=== PATIENT | female | born 1985 | race Two or more races ===

== ENCOUNTER 2020-11-17 09:01 | Emergency (ER) | payer OTHER, SELFPAY ==
[2020-11-17 10:00] VITALS: BP 152/95; PULSE 89; RESP 18; TEMP 36.4; O2SAT 99; BMI 25.3
--- NOTE | 2020-11-17 10:06 | ED.ABDPAIN ---
HPI - Abdominal Pain General Chief Complaint: Abdominal Pain Stated Complaint: LUMP IN ABD PAINFUL Time Seen by Provider: 11/17/20 10:04 Source: patient Mode of arrival: ambulatory Limitations: no limitations History of Present Illness HPI narrative: 35 y/o female presents to the ER with a painful lump in the center of her upper abdomen that has been present for about one week. She noticed it after she was constipated and straining to have a bowel movement. She reports the area is tender. She has had no N/V/D. Her last BM was yesterday but was hard with some bloody streaks in it, she did not feel like it was a full bowel movement. She has been taking milk of magnesium for constipation with little improvement. MD elicited complaint: abdominal pain Pertinent past history: constipation Onset (ago): week(s) (1) Pain Consistency: intermittent Location: epigastric Severity: moderate Quality: aching Radiation: none Migration to: no migration Exacerbating factors: bowel movement Relieving factors: nothing Associated symptoms: denies other symptoms Related Data Previous Rx's Medication Instructions Recorded polyethylene glycol 3350 17 17 g PO DAILY #119 g 11/17/20 gram/dose oral powder (Miralax) sennosides 8.6 mg-docusate sodium 1 tab-cap PO BID #30 cap 11/17/20 50 mg capsule (Senna Plus) Allergies Allergy/AdvReac Type Severity Reaction Status Date / Time latex [LATEX] Allergy Mild UNKNOWN Verified 11/17/20 10:02 Review of Systems Review of Systems Constitutional: No Fever, No Chills ENT/Mouth: No Swallowing Difficulty Cardiovascular: No Chest Pain, No SOB Respiratory: No Cough, No Sputum Gastrointestinal: No Nausea, No Vomiting, No Diarrhea, + abdominal Pain, No Hematochezia, No Melena, +constipation Genitourinary: No Dysuria, No Urinary Frequency, No Hematuria Musculoskeletal: No joint pain, No Myalgias Skin: No Skin Lesions, No rash Psych: +Anxiety/Panic Heme/Lymph: No Lymphadenopathy Physical Exam Vital Signs: Vital Signs: Last Vital Signs Temp 97.6 F 11/17/20 10:00 Pulse 89 11/17/20 10:00 Resp 18 11/17/20 10:00 BP 152/95 H 11/17/20 10:00 Pulse Ox 99 11/17/20 10:00 Body Mass Index 25.3 Appearance: Alert. Oriented X3. No acute distress. Eyes: Pupils equal, round and reactive to light. ENT: Pharynx normal. Neck: Normal inspection. Neck supple. CVS: Normal heart rate and rhythm. Pulses normal. Respiratory: No respiratory distress. Breath sounds normal. Abdomen: Well healed landry on her abdominal wall, upper abdomen with small 2cm mass tender and mobile, with knees flexed mass was able to be reduced. mild residual tenderness +BS x4 FAIZAN: normal external inspection, no stool ball in rectal vault, scant brown stool on glove Skin: Skin warm and dry. Normal skin color. Normal skin turgor. No rashes. Extremities: No lower extremity edema. Neuro: Oriented X 3. No motor deficit. No sensory deficit. Course Course Course Narrative: 35 yo female presenting with a painful mass/lump in her upper central abdomen, consistent with small hernia. Mass was able to be reduced at the bedside with Dr. Dunn. Patient tolerated well. No N/V/D. We discussed the importance of treating her constipation and following up with a surgeon. Stable for d/c home with outpatient follow up and a bowel regimen. Discharge Plan Discharge Clinical Impression: Constipation Qualifiers: Constipation type: drug induced constipation Qualified Code(s): K59.03 - Drug induced constipation Ventral hernia Qualifiers: Obstruction and gangrene presence: without obstruction or gangrene Qualified Code(s): K43.9 - Ventral hernia without obstruction or gangrene Patient Disposition: Home, Self-Care Instructions: Constipation (ED), Ventral Hernia (ED) Additional Instructions: It is important to treat the constipation to help prevent straining when you have a bowel movement. Take the prescribed medications to help with this. Drink plenty of water and increase your fiber intake (over the counter Metamucil) Follow up with the Surgeon for further evaluation. Prescriptions: New polyethylene glycol 3350 [Miralax] 17 gram/dose powder 17 g PO DAILY Qty: 119 RF: 0 Senna Plus 8.6-50 mg capsule 1 tab-cap PO BID Qty: 30 RF: 0 Referrals: Fabrizio Hightower MD [Physician] - 1 week (reducible ventral hernia) [facility] Past Medical History Medical History (Updated 11/17/20 @ 10:24 by LOGAN Aden) No known health problems Social History Social History Advance Directives: No Advance Directives Information Provided: No Patient : No
== END 2020-11-17 10:35 | disposition home or self-care (01) ==
PROVIDERS: Emergency Provider Internal Medicine; PCP Internal Medicine
DX: K59.03 Drug induced constipation (principal); K43.9 Ventral hernia without obstruction or gangrene; R10.13 Epigastric pain; Z79.899 Other long term (current) drug therapy
CPT/HCPCS: 99283

== ENCOUNTER → 2020-12-04 14:04 | Outpatient (BNVA) | payer OTHER, SELFPAY | PROVIDERS: PCP Internal Medicine; Referring Provider Internal Medicine; Visit Provider Surgery | DX: K43.9 Ventral hernia without obstruction or gangrene (principal) | CPT/HCPCS: 99202 ==

== ENCOUNTER 2020-12-27 06:42 | Day surgery (SDC) | payer OTHER, SELFPAY ==
[2020-12-20 10:17] VITALS: BMI 26.8
[2020-12-27] VITALS (8 sets, daily range): BP systolic 108–135; BP diastolic 63–88; PULSE 60–91; RESP 16–20; TEMP 36.6–36.8; O2SAT 97–100
--- NOTE | 2020-12-27 07:33 | P.CONAN_ITS ---
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 If so, by whom?: No Are you DNR?: No Advance Directives: No Advance Directives Information Provided: Yes (informational brochure mailed) Advance Directives on File: No Recently lost weight without trying: No Eating poorly because of decreased appetite: No Nutrition Risks: No Nutritional Risk Patient : No FDLMP: 12/11/20 : No Poor oral hygiene: No Meds Allergies Allergy/AdvReac Type Severity Reaction Status Date / Time latex [LATEX] Allergy Mild Hives Verified 12/27/20 07:06 Active Medications: Current Medications Lactated Ringer's (Lr) 1,000 mls @ 50 mls/hr IVCONT .Q20H ERIC Promethazine HCl 12.5 mg/ (Sodium Chloride) 50.5 mls @ 202 mls/hr IV ONCE PRN PRN Reason: Nausea and Vomiting Oxycodone HCl (Oxycodone Hcl Immed Release 5 Mg Tablet) 5 mg PO ONCE PRN PRN Reason: Pain, Severe (Pain Scale 7-10) Home Medications Medication Instructions Recorded Confirmed Last Taken Type hydroxyzine HCl 50 mg tablet 50 mg PO TID 12/20/20 12/20/20 Unknown History mirtazapine 30 mg tablet 30 mg PO BEDTIME 12/20/20 12/20/20 Unknown History paroxetine HCl 20 mg tablet 20 mg PO DAILY 12/20/20 12/20/20 Unknown History prazosin 2 mg capsule 2 mg PO BEDTIME 12/20/20 12/20/20 Unknown History pyridoxine (vitamin B6) 100 mg 100 mg PO DAILY 12/20/20 12/20/20 Unknown History tablet (Vitamin B-6) ziprasidone HCl 60 mg capsule 60 mg PO BID 12/20/20 12/20/20 Unknown History Exam Exam Date and Time: December 27, 2020732 Height,Weight and Vital Signs: Height 5 ft 1 in Weight 64.41 kg Last Vital Signs Temp 98.2 F 12/27/20 07:24 Pulse 71 12/27/20 07:24 Resp 20 12/27/20 07:24 BP 131/88 12/27/20 07:24 Pulse Ox 99 12/27/20 07:24 Airway Mallampati Class: II TM Dist: >3cm Neck ROM: Full Heart: rrr Lungs: cta Assessment and Plan Assessment Anesthesia Assessment: Anesthesia Plan Discussed and Chart Reviewed Final Anesthetic Review Family History of Problems with Anesthesia: No History of Problems with Anesthesia: No NPO: Yes ASA Class: II Final Preanesthetic Review: No Changes in Pt Med Stat, Meds/Allgs Chart Reviewed and Consent Obtained/Reviewed Patient Risk: Intermediate Procedure Risk: Intermediate Anesthetic Plan Anesthetic Plan: GA Disposition: Standard PACU
[2020-12-27] MEDS: Lactated Ringers 1,000 ML 50 ML IVCONT (07:40)
--- NOTE | 2020-12-27 08:05 | MHC.SHP ---
Pre-Procedural Eval Section A Date of Service: 12/27/20 Section B Chief Complaint: Epigastric Hernia Allergies: Allergies Allergy/AdvReac Type Severity Reaction Status Date / Time latex [LATEX] Allergy Mild Hives Verified 12/27/20 07:06 Plan I have reviewed the history and physical and performed a pertinent physical examination on my patient. No changes have occurred unless specified.
--- NOTE | 2020-12-27 09:03 | P.OP_ITS ---
Operative Note Operative Note Date of Service: 12/27/20 Narrative: Preop diagnosis: Epigastric hernia Postop diagnosis: Epigastric hernia Procedure: Repair of epigastric hernia with Ventralex mesh Surgeon: Fabrizio Hightower MD assistant professor of chemistry: LOGAN Sherman the patient is a 35-year-old female with note of a reducible mass on the epigastric area consistent with an epigastric hernia. She understood the technique of repair with mesh. She was aware of the risks, benefits, and alternatives She was brought to the operating room placed supine the table under general anesthesia via endotracheal tube. The epigastric area prepped and draped in the usual sterile fashion. A surgical time-out was done. The patient received cefazolin 2 g IV preoperatively . The hernia was palpable in the epigastric area. I infiltrated the planned line of incision with lidocaine 1%. I made a short nodule incision overlying this hernia using blade 15. This carried down through the full-thickness of the skin subcutaneous fat using electrocautery down to the fascia. I bluntly dissected the fascia until was able to visualize the hernia. I defined the hernia by carefully this from the rest of the subcutaneous layer until as were able to clearly see the fascial defect. This hernia contained only fat. I continued to sharply dissect the fascial margins to separate the hernia contents off of this. By doing so was able to reduce the hernia completely. The fascial defect was about 1.3 cm in diameter. I was able to clearly see the underside of defect. I applied a Deandre clamp on 1 of the edges. I then used a small-sized Ventralex mesh and this was position under the fascia. This was flattened. I then secured the Prolene straps of the mesh to the fascial edge with Prolene 2-0 sutures. I closed the fascial defect with the [id number] Maxon 1 stitch. I irrigated. I closed the subcutaneous layer with Dexon 3-0 interrupted sutures. Skin closure was achieved with Dexon 4-0 subcuticular running stitch. Steri-Strips and dressings were applied. The area of the incision was infiltrated with Marcaine 0.5% for postop analgesia. The procedure was completed . The patient tolerated well. There were no complications noted. Initial and final counts of sponges and instruments were correct. Estimated blood loss was about 2 cc . The patient extubated without difficulty and transferred to the recovery room with stable vital signs.
[2020-12-27] MEDS: oxyCODONE HCl Immed Release 5 MG TABLET PO (09:45)
== END 2020-12-27 10:57 | disposition home or self-care (01) ==
PROVIDERS: PCP Internal Medicine; Visit Provider Surgery
PROC: (CPT 49570; principal; 2020-12-27 08:20)
DX: K43.9 Ventral hernia without obstruction or gangrene (principal); F32.9 Major depressive disorder, single episode, unspecified; Z79.899 Other long term (current) drug therapy; Z91.040 Latex allergy status; F17.210 Nicotine dependence, cigarettes, uncomplicated
CPT/HCPCS: 49570; C1781; J0131; J0690; J1100; J1170; J1200; J1885; J2250; J2405; J2550; J3010

== ENCOUNTER → 2021-01-20 15:56 | Outpatient (BNVA) | payer OTHER, SELFPAY | PROVIDERS: PCP Internal Medicine; Referring Provider Internal Medicine; Visit Provider Surgery | DX: Z48.815 Encounter for surgical aftercare following surgery on the digestive system (principal); Z87.19 Personal history of other diseases of the digestive system | CPT/HCPCS: 99212 ==

== ENCOUNTER 2022-04-18 15:10 | Emergency (ER) | payer OTHER, MEDICARE, MEDICAID, SELFPAY ==
[2022-04-18 15:12] VITALS: BP 126/75; PULSE 90; RESP 20; TEMP 36.7; O2SAT 96; BMI 28.0
--- NOTE | 2022-04-18 15:16 | ED_ITS ---
HPI - Wound/Laceration General Chief Complaint: Wound/Laceration <Nguyen Lockett CNP - Last Filed: 04/18/22 15:17> Stated Complaint: laceration left finger <Nguyen Lockett CNP - Last Filed: 04/18/22 15:17> Time Seen by Provider: 04/18/22 15:49 <Nguyen Lockett CNP - Last Filed: 04/18/22 15:17> History of Present Illness HPI narrative: Patient complains of left index finger laceration sustained at home when she accidentally cut herself with a knife a an hour ago, no numbness weakness or tingling no other complaints <LOGAN Vegas - Last Filed: 04/18/22 21:40> Related Data Home Medications: Home Medications Medication Instructions Recorded Confirmed hydroxyzine HCl 50 mg tablet 50 mg PO TID 12/20/20 12/20/20 mirtazapine 30 mg tablet 30 mg PO BEDTIME 12/20/20 12/20/20 paroxetine HCl 20 mg tablet 20 mg PO DAILY 12/20/20 12/20/20 prazosin 2 mg capsule 2 mg PO BEDTIME 12/20/20 12/20/20 pyridoxine (vitamin B6) 100 mg 100 mg PO DAILY 12/20/20 12/20/20 tablet (Vitamin B-6) ziprasidone HCl 60 mg capsule 60 mg PO BID 12/20/20 12/20/20 Previous Rx's Medication Instructions Recorded polyethylene glycol 3350 17 17 g PO DAILY #119 grams 11/17/20 gram/dose oral powder (Miralax) sennosides 8.6 mg-docusate sodium 1 tab-cap PO BID #30 caps 11/17/20 50 mg capsule (Senna Plus) ibuprofen 600 mg tablet 600 mg PO Q6H PRN pain #30 tabs 12/27/20 oxycodone-acetaminophen 5 mg-325 1 tab PO Q4-6H PRN pain, severe 12/27/20 mg tablet (Percocet) #30 tabs ondansetron HCl 4 mg tablet 4 mg PO Q8H PRN nausea and 01/13/21 vomiting #20 tabs <Nguyen Lockett CNP - Last Filed: 04/18/22 15:17> Allergies/Adverse Reactions: Allergies Allergy/AdvReac Type Severity Reaction Status Date / Time latex [LATEX] Allergy Mild Hives Verified 01/20/21 16:05 <Nguyen Lockett CNP - Last Filed: 04/18/22 15:17> [facility] Past Medical History Source: nursing notes reviewed <LOGAN Vegas - Last Filed: 04/18/22 21:40> Medical History: Medical History Bipolar disorder Depression Epigastric hernia Hx of ectopic <Nguyen Lockett CNP - Last Filed: 04/18/22 15:17> Surgical History: Surgical History History of History of loop electrical excision procedure (LEEP) Hx of laparoscopy Hx of tubal ligation <Nguyen Lockett CNP - Last Filed: 04/18/22 15:17> Social History Social History: Social History Are you a primary field care coordinator to a significant other at home: Yes (children-one is still a minor-18 year old will care for child day of surg.) Do you presently have visiting nurse or other home services: No Patient Tobacco Use Status: Current everyday Tobacco user Tobacco use type: Cigarette Cigarettes Per Day: 5 Years Smoked: 12 Advance Directives: No Advance Directives Information Provided: No <Nguyen Lockett CNP - Last Filed: 04/18/22 15:17> Physical Exam Vital Signs: Vital Signs: Last Vital Signs Temp 98.1 F 04/18/22 15:12 Pulse 90 04/18/22 15:12 Resp 20 04/18/22 15:12 BP 126/75 04/18/22 15:12 Pulse Ox 96 04/18/22 15:12 O2 Del Method 04/18/22 15:12 BMI result Body Mass Index 28.0 <Nguyen Lockett CNP - Last Filed: 04/18/22 15:17> Vital Signs: Last Vital Signs Temp 98.1 F 04/18/22 15:12 Pulse 90 04/18/22 15:12 Resp 20 04/18/22 15:12 BP 126/75 04/18/22 15:12 Pulse Ox 96 04/18/22 15:12 O2 Del Method 04/18/22 15:12 BMI result Body Mass Index 28.0 <LOGAN Vegas - Last Filed: 04/18/22 21:40> General appearance no acute distress Head normocephalic atraumatic Neck is supple Respiratory no distress Extremities the left index finger middle phalanx palmar surface has a 1.75 cm straight superficial laceration, all tendon function is normal, flexion is normal no evidence of tendon deficit, neurovascular intact distal, full range of motion Other extremities normal <LOGAN Vegas - Last Filed: 04/18/22 21:40> Course Course Course Narrative: This is an RME: Additional HPI, ROS, PE not included below will be deferred to primary provider. Patient is a 36-year-old female who presents emergency department for evaluation of a laceration to the left 2nd digit. Lace ration occurred from a knife while cooking dinner. Uncertain of date of last tetanus vaccine. Bleeding currently controlled. Denies AC usage. Plan: Tdap to be updated. placed back in waiting room pending bed availability <Nguyen Lockett CNP - Last Filed: 04/18/22 15:17> This is an RME: Additional HPI, ROS, PE not included below will be deferred to primary provider. Patient is a 36-year-old female who presents emergency department for evaluation of a laceration to the left 2nd digit. Laceration occurred from a knife while cooking dinner. Uncertain of date of last tetanus vaccine. Bleeding currently controlled. Denies AC usage. Plan: Tdap to be updated. placed back in waiting room pending bed availability 1 cm left mid phalanx palmar surface laceration with no tendon deficit Procedure note cleansed and irrigated with water The wound was closed with Steri-Strips Band-Aid applied <LOGAN Vegas - Last Filed: 04/18/22 21:40> Medications Administered Discontinued Medications Generic Name Dose Route Start Last Admin Trade Name Freq PRN Reason Stop Dose Admin Diphtheria/Tetanus/Acell Pertussis 0.5 ml 04/18/22 15:17 04/18/22 16:44 Diphth,Pertus(Acell),Tet Adult 0.5 Ml Syringe IM 04/18/22 15:18 0.5 ml .ONCE ONE Administration <Nguyen Lockett CNP - Last Filed: 04/18/22 15:17> Medications Administered Discontinued Medications Generic Name Dose Route Start Last Admin Trade Name Freq PRN Reason Stop Dose Admin Diphtheria/Tetanus/Acell Pertussis 0.5 ml 04/18/22 15:17 04/18/22 16:44 Diphth,Pertus(Acell),Tet Adult 0.5 Ml Syringe IM 04/18/22 15:18 0.5 ml .ONCE ONE Administration <LOGAN Vegas - Last Filed: 04/18/22 21:40> Discharge Plan Discharge Clinical Impression: Finger laceration <Nguyen Lockett CNP - Last Filed: 04/18/22 15:17> Patient Disposition: Home, Self-Care <Nguyen Lockett CNP - Last Filed: 04/18/22 15:17> Additional Instructions: The laceration to the finger was closed with Steri-Strips You can remove tape in 4-5 days, if ends come loose you can trim them, if tape falls off sooner just keep wound covered with a Band-Aid and will be fine Return any time for redness swelling pain any sign of infection You got a tetanus shot today <Nguyen Lockett CNP - Last Filed: 04/18/22 15:17> Prescriptions: No Action ondansetron HCl 4 mg tablet 4 mg PO Q8H PRN (Reason: nausea and vomiting) Qty: 20 0RF polyethylene glycol 3350 [Miralax] 17 gram/dose powder 17 g PO DAILY Qty: 119 0RF Senna Plus 8.6-50 mg capsule 1 tab-cap PO BID Qty: 30 0RF hydroxyzine HCl 50 mg Tablet 50 mg PO TID paroxetine HCl 20 mg Tablet 20 mg PO DAILY mirtazapine 30 mg Tablet 30 mg PO BEDTIME pyridoxine (vitamin B6) [Vitamin B-6] 100 mg Tablet 100 mg PO DAILY ziprasidone HCl 60 mg Capsule 60 mg PO BID prazosin 2 mg Capsule 2 mg PO BEDTIME oxycodone-acetaminophen [Percocet] 5-325 mg tablet 1 tab PO Q4-6H PRN (Reason: pain, severe) Qty: 30 0RF ibuprofen 600 mg tablet 600 mg PO Q6H PRN (Reason: pain) Qty: 30 0RF <Nguyen Lockett CNP - Last Filed: 04/18/22 15:17> Stand Alone Forms: Work/School Release <Nguyen Lockett CNP - Last Filed: 04/18/22 15:17> Interventions: ED Discharge Assessment Last Done: 04/18/22 16:48 <Nguyen Lockett CNP - Last Filed: 04/18/22 15:17> Discharge Date/Time: 04/18/22 16:49 <Nguyen Lockett CNP - Last Filed: 04/18/22 15:17>
[2022-04-18] MEDS: Diphth,Pertus(ACell),Tet Adult 0.5 ML SYRINGE IM (16:44)
== END 2022-04-18 16:49 | disposition home or self-care (01) ==
PROVIDERS: Emergency Provider Emergency Medicine
DX: S61.211A Laceration without foreign body of left index finger without damage to nail, initial encounter (principal); W26.0XXA Contact with knife, initial encounter; Y93.G1 Activity, food preparation and clean up; Y92.030 Kitchen in apartment as the place of occurrence of the external cause; Y99.9 Unspecified external cause status
CPT/HCPCS: 90471; 90715; 99282; 99284

== ENCOUNTER 2022-04-20 08:40 | Emergency (ER) | payer OTHER, MEDICARE, MEDICAID, SELFPAY ==
[2022-04-20 09:04] VITALS: BP 119/72; PULSE 82; RESP 20; TEMP 37.2; O2SAT 99; BMI 27.6
--- NOTE | 2022-04-20 12:11 | ED.GENADULT ---
HPI - General Adult General Chief complaint: Skin/Abscess/Foreign Body Stated complaint: Lac on finger Time Seen by Provider: 04/20/22 11:30 Source: patient Mode of arrival: ambulatory Limitations: no limitations History of Present Illness HPI narrative: 36 yold female presents to the for opening of left index wound that was glued this past wednesday. Patient states today while lifting the box this morning the wound opended. patient denies any other truama or complaints. Related Data Home Medications Medication Instructions Recorded Confirmed hydroxyzine HCl 50 mg tablet 50 mg PO TID 12/20/20 12/20/20 mirtazapine 30 mg tablet 30 mg PO BEDTIME 12/20/20 12/20/20 paroxetine HCl 20 mg tablet 20 mg PO DAILY 12/20/20 12/20/20 prazosin 2 mg capsule 2 mg PO BEDTIME 12/20/20 12/20/20 pyridoxine (vitamin B6) 100 mg 100 mg PO DAILY 12/20/20 12/20/20 tablet (Vitamin B-6) ziprasidone HCl 60 mg capsule 60 mg PO BID 12/20/20 12/20/20 Previous Rx's Medication Instructions Recorded polyethylene glycol 3350 17 17 g PO DAILY #119 grams 11/17/20 gram/dose oral powder (Miralax) sennosides 8.6 mg-docusate sodium 1 tab-cap PO BID #30 caps 11/17/20 50 mg capsule (Senna Plus) ibuprofen 600 mg tablet 600 mg PO Q6H PRN pain #30 tabs 12/27/20 oxycodone-acetaminophen 5 mg-325 1 tab PO Q4-6H PRN pain, severe 12/27/20 mg tablet (Percocet) #30 tabs ondansetron HCl 4 mg tablet 4 mg PO Q8H PRN nausea and 01/13/21 vomiting #20 tabs bacitracin 500 unit/gram topical 1 appl topical TID 7 days #14 grams 04/20/22 ointment Allergies Allergy/AdvReac Type Severity Reaction Status Date / Time latex [LATEX] Allergy Mild Hives Verified 01/20/21 16:05 Review of Systems Review of Systems: left index finger dehischence Yes all other systems are reviewed and are negative PMFSH Past Medical History Medical History Bipolar disorder Depression Epigastric hernia Hx of ectopic Surgical History History of History of loop electrical excision procedure (LEEP) Hx of laparoscopy Hx of tubal ligation Social History Social History 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 at home: Yes (children-one is still a minor-18 year old will care for child day of surg.) Do you presently have visiting nurse or other home services: No Patient Tobacco Use Status: Current everyday Tobacco user Tobacco use type: Cigarette Cigarettes Per Day: 5 Years Smoked: 12 Advance Directives: No Advance Directives Information Provided: No Physical Exam ED Vital Signs: Vital Signs - 24 hr 04/20/22 09:04 Temperature 98.9 F Pulse Rate 82 Respiratory Rate 20 Blood Pressure 119/72 Pulse Oximetry 99 Oxygen Delivery Method Room Air BMI result Body Mass Index 27.6 Const General: cooperative, healthy appearing, comfortable, no acute distress, well developed, alert, awake and Physically active Orientation/consciousness: oriented to person, oriented to place, oriented to time and patient oriented x3 HENMT Head: Yes normal to inspection, Yes No palpable skull fracture present, Yes normocephalic and No atraumatic Eyes General: appearance normal, both eyes and all related structures Neck Neck: Yes normal visual inspection, Yes full ROM, Yes no lymphadenopathy, Yes no meningeal signs, Yes trachea midline, Yes supple, No anterior neck swelling and No tender Chest Chest palpation & inspection: normal inspection of the chest and normal palpation of entire chest wall Resp Effort & Inspection: normal respiratory effort and able to speak in complete sentences Auscultation: clear to auscultation bilaterally Cardio Jugular venous distension: no JVD Heart sounds: S1 normal heart sound present and S2 normal heart sound present GI Inspection: Yes normal to inspection and No abdominal wall ecchymosis Palpation (GI): Soft to palpation, not firm, nontender, no guarding and not rigid General: No CVA tenderness and Yes no CVA tenderness Back/Spine/Pelvis Back: no CVA tenderness, No CVA tenderness and No back tenderness Skin General skin exam: no rashes or lesions noted and elasticity normal Neuro General: oriented to person, oriented to place, oriented to time, patient oriented x3, gait normal, moves all extremities, Normal light touch and pain sensation, no meningeal signs, no focal motor deficits and CN's II-XI intact bilaterally Extrem General: Yes normal to inspection and Yes full ROM Hand/finger images: 1. Open laceration. Healthy looking. Negative for any swelling, redness, pus discharge, or foul odor. Patient has complete range of motion of index finger. Psych Appearance: grossly normal, well kempt and not disheveled Course Course Course Narrative: Course. wound is health looking Reevaluation(s) Reevaluation #1: No need for any further laceration repair. Cleaned with sterile saline and biodine. bacitracin placed Medications Administered Discontinued Medications Generic Name Dose Route Start Last Admin Trade Name Freq PRN Reason Stop Dose Admin Bacitracin 1 appl 04/20/22 12:13 04/20/22 12:37 Bacitracin Oint 0.9 Gm Packet TOPICAL 04/20/22 12:14 1 appl ONCE ONE Administration Protocol Medical Decision Making Medical Decision Making MDM Narrative: 36-year-old female presents to ED for open left index finger wound was glued this past Wednesday. No new trauma. Wound is healthy appearing Differential Diagnosis Differential Diagnoses: The differential diagnosis associated with the presentation includes (Wound dehiscence, cellulitis,) Prescription Management I considered prescription management with: Other (bacitracin) Discharge Plan Discharge Clinical Impression: Wound dehiscence Patient Disposition: Home, Self-Care Instructions: Wound Healing and Your Diet (ED), Wound Dehiscence (ED) Additional Instructions: No need for repeat laceration repair. Finger will heal on its own. Recommend placing bacitracin twice a day with finger. Keep finger covered when working. Return to the ED for any swelling, redness, pus discharge, foul odor, fever, chills, or any other concerning symptoms. Please follow up with PCP. Prescriptions: New bacitracin 500 unit/gram ointment 1 appl topical TID 7 Days Qty: 14 0RF No Action ondansetron HCl 4 mg tablet 4 mg PO Q8H PRN (Reason: nausea and vomiting) Qty: 20 0RF polyethylene glycol 3350 [Miralax] 17 gram/dose powder 17 g PO DAILY Qty: 119 0RF Senna Plus 8.6-50 mg capsule 1 tab-cap PO BID Qty: 30 0RF hydroxyzine HCl 50 mg Tablet 50 mg PO TID paroxetine HCl 20 mg Tablet 20 mg PO DAILY mirtazapine 30 mg Tablet 30 mg PO BEDTIME pyridoxine (vitamin B6) [Vitamin B-6] 100 mg Tablet 100 mg PO DAILY ziprasidone HCl 60 mg Capsule 60 mg PO BID prazosin 2 mg Capsule 2 mg PO BEDTIME oxycodone-acetaminophen [Percocet] 5-325 mg tablet 1 tab PO Q4-6H PRN (Reason: pain, severe) Qty: 30 0RF ibuprofen 600 mg tablet 600 mg PO Q6H PRN (Reason: pain) Qty: 30 0RF Stand Alone Forms: Work/School Release Interventions: ED Discharge Assessment Last Done: 04/20/22 12:34 Discharge Date/Time: 04/20/22 12:36 Print Language: Swedish
[2022-04-20] MEDS: Bacitracin Oint 0.9 GM PACKET 1 APPL TOPICAL (12:37)
== END 2022-04-20 12:36 | disposition home or self-care (01) ==
PROVIDERS: Emergency Provider Emergency Medicine
DX: T81.33XD Disruption of traumatic injury wound repair, subsequent encounter (principal); Y82.8 Other medical devices associated with adverse incidents
CPT/HCPCS: 99282; 99283

== ENCOUNTER 2024-04-08 11:05 | Inpatient (IN) | payer MEDICARE, MEDICAID, SELFPAY ==
--- NOTE | ~2024-04-08 | CT_ITS ---
CLINICAL HISTORY: RLQ pain, V D, r o appendicitis v colitis CT abdomen and pelvis with contrast Comparison: CT - CT ABDOMEN PELVIS W IV CON - 04/08/24 14:39 EST Findings: Trace right pleural effusion. Heart size is normal. The gallbladder and solid organs are within normal limits. No renal stones. No bowel obstruction, pneumoperitoneum, or pneumatosis. There is mild thickening of the descending colon. Pelvic contents unremarkable. Normal appendix. No acute fracture. IMPRESSION: 1. Colonic thickening, consistent with ischemia, infection, versus inflammation. Follow-up colonoscopy is recommended to exclude underlying neoplasm. 2. Trace right pleural effusion. This document has been electronically signed by: Eileen Ni MD on 04/08/2024 15:52:50
--- NOTE | 2024-04-08 11:18 | ED.GENADULT ---
HPI - General Adult General Chief complaint: Abdominal Pain Stated complaint: vomitting diarrhea abd pain Time Seen by Provider: 04/08/24 14:23 Source: patient Mode of arrival: ambulatory Limitations: no limitations History of Present Illness ED Provider: MARISA DIAZ PA-C HPI narrative: 38 year old female with no significant pmhx presents to the ED today for evaluation of nausea, vomiting, diarrhea, and lower abdominal pain x1.5 weeks. Denies any recent antibiotic treatment. Denies recent travel outside the [place]. Her daughter was recently ill with similar symptoms. She was evaluated at today and was sent to the ED for further evaluation due to concern for appendicitis. She denies fever, chills, chest pain, flank pain, dysuria, hematuria, constipation, vaginal discharge. Related Data Home Medications ?Medication ?Instructions ?Recorded ?Confirmed aripiprazole 5 mg tablet 5 mg PO DAILY 04/08/24 04/08/24 clonidine HCl 0.1 mg tablet 0.1 mg PO BEDTIME PRN Anxiety 04/08/24 04/08/24 escitalopram oxalate 10 mg tablet 10 mg PO DAILY 04/08/24 04/08/24 escitalopram oxalate 20 mg tablet 20 mg PO DAILY@1500 04/08/24 04/08/24 gabapentin 400 mg capsule 800 mg PO TID 04/08/24 04/08/24 lamotrigine 25 mg tablet 50 mg PO TID 04/08/24 04/08/24 lorazepam 0.5 mg tablet 0.5 mg PO BID PRN Anxiety 04/08/24 04/08/24 prazosin 5 mg capsule 5 mg PO BEDTIME 04/08/24 04/08/24 quetiapine 200 mg tablet,extended 500 mg PO BEDTIME 04/08/24 04/08/24 release 24 hr quetiapine 50 mg tablet,extended 50 mg PO DAILY 04/08/24 04/08/24 release 24 hr Allergies Allergy/AdvReac Type Severity Reaction Status Date / Time latex [LATEX] Allergy Mild Hives Verified 04/08/24 11:19 Review of Systems Review of Systems: Constitutional: No fever, chills, fatigue, night sweats, weight changes ENT/Mouth: No ear pain, hearing loss, nasal congestion, sinus pain, rhinorrhea, sore throat Eyes: No eye pain, swelling, redness, vision changes, discharge Cardio: No chest pain, palpitations, R[place], orthopnea, peripheral edema Pulm: No SOB, cough, sputum, wheezing, dyspnea, hemoptysis GI: No nausea, vomiting, hematemesis, abdominal pain, diarrhea, constipation, hematochezia, melena, +N/V/D, +abd pain : No irregular bleeding, dysuria, frequency, urgency, hesitancy, hematuria, flank pain, urinary flow changes, urinary incontinence or retention MSK: No back pain, neck pain, joint pain, myalgias Skin: No lesions, rashes Neuro: No weakness, numbness, paresthesias, LOC, dizziness, headache Psych: No anxiety/panic, depression, SI/HI, AH/VH All other systems reviewed and are negative. [facility] Past Medical History Attestation statement: The following information was validated with the patient. 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: Yes (children-one is still a minor-18 year old will care for child day of surg.) Do you presently have visiting nurse or other home services: No Patient Tobacco Use Status: Current everyday Tobacco user Tobacco use type: Cigarette Cigarettes Per Day: 5 Years Smoked: 12 Advance Directives: No Advance Directives Information Provided: No Do you have a plan to hurt others: No Plan Physical Exam ED Vital Signs: Vital Signs - 24 hr 04/08/24 11:19 04/08/24 16:03 Temperature 98.0 F 98 F Pulse Rate 76 67 Respiratory Rate 16 Blood Pressure 123/78 111/73 Pulse Oximetry 97 99 Oxygen Delivery Method Room Air Room Air BMI result Body Mass Index 32.7 vital signs stable, afebrile General: Well appearing, in no acute distress. Skin: Warm, dry, intact. No rashes or lesions. Head: Normocephalic, atraumatic. EENT: Hearing is intact b/l. Conjunctiva clear. PERRLA. EOM intact. Moist mucous membranes.? Neck: Supple without LAD Cardiac: Chest wall symmetric. RRR Lungs: Normal respiratory effort without accessory muscle use. CTA bilaterally Abdomen: soft, nondistended, ttp along right and left lower quadrants with voluntary guarding, no rebound. normoactive bs x4. no cvat. Back: No midline spinous or paraspinal tenderness. No step off deformity. Neuro: AOx3. Normal speech. Ambulating with steady gait. Psych: Appropriate mood and affect. Responds appropriately to questions. Course Course Course Narrative: RME performed by Alicja Palomino PA-C. Patient is a 38 year old assigned female at presenting to the emergency department with abdominal pain, nausea, vomiting, and a headache. Detailed physical exam and review of systems are deferred to the superintendent colliery. Labs and swabs ordered. Patient placed back in the waiting room pending room availability and results. Reevaluation(s) Reevaluation #1: 1612 -- CBC without leukocytosis or left shift. No anemia. H&H stable. Chemistry without acute electrolyte abnormality requiring intervention. No MITESH. Normal liver function. Beta quant undetectable. Negative COVID, flu, RSV. CT abdomen/pelvis with contrast showing thickening of the descending colon consistent with ischemia, infection, inflammation. Recommending follow up colonoscopy to exclude underlying neoplasm. Trace right pleural effusion. UA pending. > patient appears comfortable in room. I have extremely low suspicion for ischemic bowel as presentation is not consistent with this. will add on lactic acid. ekg added on to assess for afib. > I reached out to general surgeon doctor ru who has evaluated patient at bedside. he is recommending starting treatment for colitis with admission to medical service. patient is agreeable with admission. > IV zosyn and flagyl ordered. 1700 -- lactic wnl. ischemic bowel unlikely. ekg does not demonstrate afib. patient admitted to medical service for further treatment of colitis. Medications Administered Discontinued Medications Generic Name Dose Route Start Last Admin Trade Name Freq PRN Reason Stop Dose Admin Diphenhydramine HCl 25 mg 04/08/24 14:31 04/08/24 14:51 Diphenhydramine Hcl 50 Mg/Ml Vial IVPUSH 04/08/24 14:32 25 mg ONCE ONE Administration Sodium Chloride 1,000 mls @ 999 mls/hr 04/08/24 14:45 04/08/24 16:02 Ns IV 04/08/24 15:45 Infused .Q1H1M ERIC Infusion Metronidazole 500 mg in 100 mls @ 100 mls/hr 04/08/24 16:17 04/08/24 21:00 Flagyl IV 04/08/24 17:16 Infused ONCE ONE Infusion Piperacillin Sod/Tazobactam 50 mls @ 100 mls/hr 04/08/24 16:18 04/08/24 17:49 Sod 3.375 gm/ Sodium Chloride IV 04/08/24 16:47 Infused ONCE ONE Infusion Iohexol 100 ml 04/08/24 14:42 04/08/24 14:42 Iohexol 350 Mg/Ml 100 Ml Infus..Btl IV 04/08/24 14:43 85 ml ONCE ONE Administration Ketorolac Tromethamine 15 mg 04/08/24 14:31 04/08/24 14:51 Ketorolac Tromethamine 15 Mg/Ml Vial IVPUSH 04/08/24 14:32 15 mg ONCE ONE Administration Metoclopramide HCl 10 mg 04/08/24 14:31 04/08/24 14:51 Metoclopramide Hcl 10 Mg/2 Ml Vial IVPUSH 04/08/24 14:32 10 mg ONCE ONE Administration Medical Decision Making Medical Decision Making MDM Narrative: 38 year old female with no significant pmhx presents to the ED today for evaluation of nausea, vomiting, diarrhea, and lower abdominal pain x1.5 weeks. vital signs stable. afebrile. she is nontoxic appearing and in NAD. on exam abdomen is soft, nondistended, ttp along right and left lower quadrants with voluntary guarding, pain is not out of proportion to exam, no rebuond. normoactive bs x4. no cvat. Differential diagnoses: appendicitis, diverticulitis, diverticulosis, uti, gastroenteritis, anemia, electrolyte abnormality, dehydration, MITESH Abdominal exam without peritoneal signs. No evidence of acute abdomen at this time. Low suspicion for acute hepatobiliary disease (including acute cholecystitis), acute infectious processes (pneumonia, hepatitis, pyelonephritis, PID, TOA), vascular catastrophe, bowel obstruction or viscus perforation, ovarian cyst/ rupture/ torsion, ectopic. Presentation not consistent with other acute, emergent causes of abdominal pain at this time. Plan: labs, UA, CT AP, IVF, zofran, serial reassessment Differential Diagnosis Differential Diagnoses: The differential diagnosis associated with the presentation includes as above. Admission/Observation Consideration of admission/observation: Escalation of care including admission/observation considered Patient to be admitted to medicine for colitis Consult Healthcare Provider Management of the patient was discussed with: Hospitalist and Library Media Assistant Dr. rWen - hospitalist Dr. Hightower - general surgery Lab Data MDM Lab Attestation statement: I reviewed the patient's lab results. as above. 04/08/24 11:27 04/08/24 11:27 Labs: Lab Results 04/08/24 04/08/24 04/08/24 Range/Units 11:27 16:32 16:51 WBC 8.4 (4.8-10.8) X10*3/uL RBC 4.37 (4.20-5.50) X10*6/uL Hgb 12.6 (12.0-16.0) g/dl Hct 37.1 (37.0-47.0) % MCV 84.9 (80.0-98.0) fL MCH 28.8 (27.0-33.0) pg MCHC 34.0 (31.0-35.0) g/dl RDW 13.3 (11.0-16.0) % Plt Count 396 (160-400) X10*3/uL MPV 9.2 L (9.4-12.3) fL Immature Gran % (Auto) 0.1 (0.0-0.4) % Neut % (Auto) 62.3 (45-73) % Lymph % (Auto) 25.4 (20-40) % [place] % (Auto) 10.4 (2-11) % Eos % (Auto) 1.3 (0-4) % Baso % (Auto) 0.5 (0-2) % Lymph # (Auto) 2.1 (1.2-4.9) X10*3/uL [place] # (Auto) 0.9 (0.1-1.2) X10*3/uL Eos # (Auto) 0.1 (0.0-0.4) X10*3/uL Baso # (Auto) 0.0 (0.0-0.2) X10*3/uL Abs Immat Gran (auto) 0.01 (0.00-0.03) X10*3/uL Absolute Neuts (auto) 5.2 (2.0-8.3) x10*3/uL Absolute Nucleated RBC 0.000 (0.0-0.012) X10*3/uL Nucleated RBC % (auto) 0.0 (0.0-0.2) /100WBC Sodium 141 (135-145) mmol/L Potassium 3.8 (3.3-5.1) mmol/L Chloride 108 (96-108) mmol/L Carbon Dioxide 25 (22-29) mmol/L Anion Gap 12 (12-20) BUN 13 (9-16) mg/dL Creatinine 0.70 (0.5-1.4) mg/dL Estim Creat Clear Calc 103.3 Estimated GFR > 60 Random Glucose 92 (60-115) mg/dL Lactic Acid 0.8 (0.5-2.0) mmol/L Calcium 9.4 (8.4-10.2) mg/dL Magnesium 2.0 (1.6-2.6) mg/dL Total Bilirubin 0.8 (0.0-1.0) mg/dL AST 17 (5-31) U/L ALT 17 (0-31) U/L Alkaline Phosphatase 53 (39-117) U/L Total Protein 7.4 (6.5-8.0) g/dL Albumin 4.2 (3.5-5.0) g/dL Beta HCG, Quant < 2 mIU/mL Urine Color Yellow Urine Appearance Clear Urine pH 6.5 (5.0-9.0) Ur Specific [place] 1.025 (1.005-1.025) Urine Protein Trace (Neg-Trace) mg/dL Urine Glucose (UA) Negative (Negative) mg/dL Urine Ketones 40 (Negative) mg/dL Urine Blood Moderate (2+) H (Negative) Urine Nitrite Negative (Negative) Ur Leukocyte Esterase Negative (Negative) Urine RBC 3-5 H (0-2) /HPF Urine WBC 0-5 (0-5) /HPF Ur Squamous Epith Cells 11-20 (0-2) /HPF Urine Bacteria 4+ (None Seen) Hyaline Casts 0-2 (0-2) /LPF Influenza Type A (PCR) NEGATIVE (Negative) Influenza Type B (PCR) NEGATIVE (Negative) RSV RNA Qual (PCR) NEGATIVE (Negative) SARS-CoV-2 RNA (RT-PCR) NEGATIVE (Negative) Independent Interpretation I performed an independent interpretation of an: EKG and CT Scan Interpretation: CT A/P w/ thickening of descending colon, no obvious free fluid Radiology Impression Discussion of test interpretation with radiology: I have reviewed the radiologist's reading. Radiologist Impression: Procedure(s): CT abdomen pelvis w IV con Accession Number(s): [id number] cc: Physician,Unknown ; Marisa Diaz~ Report Number: [id number]: Total DLP = 670.00 mGy-cm CLINICAL HISTORY: RLQ pain, V D, r o appendicitis v colitis CT abdomen and pelvis with contrast Comparison: CT - CT ABDOMEN PELVIS W IV CON - 04/08/24 14:39 EST Findings: Trace right pleural effusion. Heart size is normal. The gallbladder and solid organs are within normal limits. No renal stones. No bowel obstruction, pneumoperitoneum, or pneumatosis. There is mild thickening of the descending colon. Pelvic contents unremarkable. Normal appendix. No acute fracture. IMPRESSION: 1. Colonic thickening, consistent with ischemia, infection, versus inflammation. Follow-up colonoscopy is recommended to exclude underlying neoplasm. 2. Trace right pleural effusion. This document has been electronically signed by: Eileen Ni MD on 04/08/2024 15:52:50 External Record Review External record reviewed: Inpatient record Prescription Management I considered prescription management with: Pain Medication and Antibiotic Social Determinants Patient?s care significantly limited by Social Determinants of Health including: Other Social Determinant of Health Critical Care Time Critical Care Time Critical Care Time: Yes Total Critical Care Time: 33 Attestation: Critical care time in the amount of 33 minutes has been provided to the patient in terms of direct patient care, frequent reevaluation, consultation with general surgery/ hospitalist, review and interpretation of medical data and results, and management of potentially life-threatening conditions. This is all outside of any medical procedures. Discharge Plan Discharge Clinical Impression: Colitis Patient Disposition: Admitted As Inpatient Interventions: Admission Worksheet (ED) Last Done: 04/08/24 18:58
[2024-04-08 11:19] VITALS: BP 123/78; PULSE 76; RESP 16; TEMP 36.7; O2SAT 97; BMI 32.7
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
--- OUTSIDE RECORDS SUMMARY | 2024-04-08 11:29 | XMS_ITS | Clinical Summary ---
Author Organization [address] Address [address] [place] [id number] Phone Care Team Providers Care Social Insurance Specialist Name Role Phone Consuelo Garcia MD Primary Care Provider [phone] Allergies Active Allergy Reactions Criticality Noted Date Comments Latex 07/08/2009 Rash all over Medications cholecalciferol (Dialyvite Vitamin D3 Max) 1,250 mcg (50,000 unit) tablet Take 1 tablet (50,000 Units total) by mouth every 7 (seven) days. 05/07/2023 Active cloNIDine (CATAPRES) 0.1 mg tablet 02/25/2023 Active escitalopram (LEXAPRO) 20 mg tablet 02/25/2023 Active folic acid (FOLVITE) 1 mg tablet Take 1 tablet (1,000 mcg total) by mouth 1 (one) time each day. 02/10/2023 Active cyanocobalamin (VITAMIN B-12) 1,000 mcg tablet Take 1 tablet (1,000 mcg total) by mouth 1 (one) time each day. 02/10/2023 Active lamoTRIgine (LaMICtal) 25 mg tablet 02/25/2023 Active miconazole (MICATIN) 2 % cream Apply to affected area twice daily x2 weeks. 05/06/2023 Active prazosin HCl (PRAZOSIN ORAL) Take by mouth daily. Active GABAPENTIN ORAL Take by mouth daily. Active quetiapine fumarate (QUETIAPINE ORAL) Take by mouth daily. Active norethindrone (AYGESTIN) 5 mg tablet Take 1 tablet (5 mg total) by mouth 1 (one) time each day. 90 each 01/28/2024 04/28/19 25 Active Active Problems Problem Noted Date Diagnosed Date Anxiety 12/26/2023 Colon polyps 12/26/2023 Hemorrhoids 12/26/2023 Hidradenitis suppurativa of left axilla 12/26/19 24 Tubular adenoma of colon 12/26/2023 Breakthrough bleeding on Depo-Provera 07/28/2022 Overview (12/26/2023): Last Assessment & Plan: Postcoital bleeding likely related to Depo Provera, as no findings concerning for cervical or vaginal lesion. Elevated homocysteine 02/17/2022 Vitamin D deficiency 06/07/2017 Panic attacks 07/06/2013 PTSD (post-traumatic stress disorder) 07/06/2013 Umbilical hernia 07/04/2013 Bipolar depression 05/28/2009 Tobacco use disorder 05/28/2009 Encounters Date Type Department Care Team Description 01/28/2024 10:50 AM EST Lab Draw Station - [address] Vitamin D deficiency (Primary Dx); Elevated homocysteine; Anxiety; Tubular adenoma of colon; Hidradenitis suppurativa of left axilla; Breakthrough bleeding on Depo-Provera; Bipolar depression (CMS/HCC); Panic attacks; PTSD (post-traumatic stress disorder); Tobacco use disorder; Fatigue; Menorrhagia with regular cycle 01/28/2024 10:15 AM EST Office Visit Obstetrics and Gynecology - [address] [phone] Sowmya Miranda MD Encounter for gynecological examination without abnormal finding (Primary Dx); Screening for cervical cancer; Menorrhagia with regular cycle; Screening examination for venereal disease from Last 3 Months Immunizations Name Administration Dates Next Due Hepatitis B (Iuwqlld-V-Rkwsl , Recombivax HB-Adult) 19yo and older 08/26/1999,12/31/1998,10/14/1998 MMR, measles mumps and rubel la Live (Priorix; M-M-R II) 12mo and older 09/10/1995 Measles 05/28/1987 PPD Test 08/12/2011,07/08/2009 Td Tetanus diptheria (Tdvax) 7yo and older 11/24,04/19/2001 Tdap Tetanus diptheria acell ular pertussis (Boostrix; Adacel) 7yo and older 08/12/2011 Surgical History Surgery Date Site/Laterality Comments ECTOPIC SURGERY 02/2007 PROCEDURE: HISTORICAL ECTOPIC SURGERY; COMMENT: removal of tube VAGINOSCOPY 12/2006 PROCEDURE: [place] COLPOSCOPY CERVIX VAG LOOP ELTRD BX CERVIX OVARIAN CYST REMOVAL PROCEDURE: [place] OVARIAN CYSTECTOMY UNI/BI; COMMENT: 2007 laproscopic SECTION 04/04/2009 PROCEDURE: [place] DELIVERY ONLY TUBAL LIGATION PROCEDURE: HISTORICAL TUBAL LIGATION UMBILICAL HERNIA REPAIR 12/27/2020 PROCEDURE: LAP UMBILICAL HERNIA REPAIR; COMMENT: with a mesh COLONOSCOPY PROCEDURE: HISTORICAL COLONOSCOPY COLONOSCOPY PROCEDURE: HISTORICAL COLONOSCOPY; COMMENT: Performed on April 14, 2021 needs 3-year repeat Medical History Medical History Date Comments Anxiety DX:Anxiety PTSD (post-traumatic stress disorder) DX:PTSD (post-traumatic stress disorder) History of vitamin D deficiency 08/22/2013 DX:History of vitamin D deficiency Hypertension 05/28/2009 DX:Hypertension Bipolar depression (CMS/HCC) 05/28/2009 DX: Bipolar depression (HCC) History of migraine headaches 02/08/2011 DX :History of migraine headaches Vitamin D deficiency 06/07/2017 DX:Vitamin D deficiency Umbilical hernia 07/04/2013 DX:Umbilical he rnia Tobacco use disorder 05/28/2009 DX:Tobacco use disorder Panic attacks 07/06/2013 DX:Panic attacks Hidradenitis suppurativa of left axilla DX:Hidradenitis suppurativa of left axilla Gonorrhea 11/2019 DX:Gonorrhea; CO MMENT: treated 12/01/19 Abdominal pain DX:Abdominal tianna n Family history of colon canc er in mother DX:Family history of colon c ancer in mother H/O hernia repair DX:H/O hernia repair Rectal pain DX:Rectal pain Pain with bowel movements DX:Tianna n with bowel movements Tubular adenoma of colon DX:Tubu lar adenoma of colon Colon polyps DX:Colon polyps Straining with stools DX:Straini ng with stools Hemorrhoids DX:Hemorrhoids Family History Medical History Relation Name Comments Breast cancer Aunt maternal age 40s, mater nal great aunt; IDDM, hypertension Other: Other Father Heart attack Maternal Grandfather Prostate cancer Maternal Grandfather Other: cancer skin Maternal Grandmother Colon polyps Mother dx at age 45 Cervical cancer Other first cousin s Diabetes Uncle 1 IDDM; HTN Colon cancer Uncle 2 mat uncle Blindness Neg Hx Cataracts Neg Hx Glaucoma Neg Hx Macular degeneration Neg Hx Strabismus Neg Hx Relation Name Status Comments Aunt maternal Alive Father Maternal Grandfather Maternal Grandmother Mother Alive Other Uncle 1 Uncle 2 Alive Social History Tobacco Use Types Packs/Day Years Used Date Smoking Tobacco: Former Cigarettes Smokeless Tobacco: Never Alcohol Use Standard Drinks/Week Comments Not Currently 0 (1 standard drink = 0.6 oz pur e alcohol) Comments Unknown Sex and Gender Information Value Date Recorded Sex Assigned at Not on file Legal Sex Female 10:21 AM EST Gender Identity Not on file Sexual Orientation Not on file Obstetrics History Para Term AB IAB SAB Ectopic Multiple Livin g Live Births 4 2 1 1 2 1 1 2 2 Date Outcome GA Total Labor Labor/2nd/3rd Weight Sex Type Anes PTL Kajal A1 A5 Name Clin 003 Term 40w 0d 3827 g (135 oz) M Vag-S pont Epidur al Livin g Delivery Location:[facility] 02/2007 Ectopic Delivery Location:right ecto pic 010 36w 0d 2325 g (82 oz) F CS-Un spec Spinal Livin g Delivery Location:[facility] 2011 IAB Last Filed Vital Signs Vital Sign Reading Time Taken Comments Blood Pressure 104/64 01/28/2024 10:23 AM EST Pulse 72 01/28/2024 10:23 AM EST Temperature - - Respiratory Rate 16 01/28/2024 10:23 AM EST Oxygen Saturation - - Inhaled Oxygen Concentration - - Weight 77.6 kg (171 lb) 01/28/2024 10:23 AM EST Height 154.9 cm (5' 1 ) 01/28/2024 10:23 AM EST Body Mass Index 32.31 01/28/2024 10:23 AM EST Plan of Treatment Upcoming Encounters Date Type Department Care Team (Late st Contact Info) Description 04/28/2024 9:15 AM EDT Office Visit Obstetrics and Gynecology - [address] [phone] Sowmya Miranda MD [address], [place] Health Maintenance Due Date Last Done Comments Depression Screening 01/24/2022 Medicare Annual Wellness Visit 01/24/2022 Social Influencers of Health Screening 01/24/2022 COVID-19 Vaccine ( season) 2023 07/29/2021, 07/08/2021 Influenza Vaccine (#1) 2023 Cholesterol Screening (Lipid Panel) 05/05/2028 05/06/2023 Cervical Cancer Screening: HPV 01/27/2029 01/28/2024, 10/26/2018 DTaP,Tdap,and Td Vaccines (5 - Td or Tdap) 04/18/2032 04/18/2022, 11/24/2021, 08/12/2011, Additional history exists MMR Vaccines Completed 09/10/1995 Hepatitis B Vaccines Completed 08/26/1999, 12/31/1998, 10/14/1998 HIV Screening Completed 07/08/2009 Hepatitis C Screening Completed 05/06/2023 HIB Vaccines Aged Out No longer eligi ble based on patient's age to complete this topic HPV Vaccines Aged Out No longer eligi ble based on patient's age to complete this topic Hepatitis A Vaccines Aged Out No long er eligible based on patient's age to complete this topic IPV Vaccines Aged Out No longer eligi ble based on patient's age to complete this topic Meningococcal ACWY Vaccine Aged Out N o longer eligible based on patient's age to complete this topic Meningococcal B Vacine Aged Out No lo nger eligible based on patient's age to complete this topic Pneumococcal Vaccine: Pediatrics (0 to 5 Years) and At-Risk Patients (6 to 64 Years) Aged Out No longer eligible based on patient's age to complete this topic RSV Immunization Patients Under 20 months Aged Out No longer eligible based on patient's age to complete this topic Varicella Vaccines Aged Out No longer eligible based on patient's age to complete this topic Procedures Procedure Name Priority Date/Time Associated Diagnosis Comments CBC WITH AUTO DIFFERENTIAL Routine 01/28/2024 10:56 AM EST Menorrhagia with regular cycle CBC AND DIFFERENTIAL Routine 01/28/2024 10:56 AM EST Menorrhagia with regular cycle THYROID STIMULATING HORMONE WITH REFLEX TO FREE T4 AND FREE T3 Routine 01/28/2024 10:56 AM EST Vitamin D deficiency Elevated homocysteine Anxiety Tubular adenoma of colon Hidradenitis suppurativa of left axilla Breakthrough bleeding on Depo-Provera Bipolar depression (CMS/HCC) Panic attacks PTSD (post-traumatic stress disorder) Tobacco use disorder Fatigue PAP SMEAR Routine 01/28/2024 10:40 AM EST Screening for cervical cancer HPV WITH REFLEX GENOTYPE Routine 01/28/2024 10:40 AM EST Screening for cervical cancer CHLAMYDIA TRACHOMATIS AND NEISSERIA GONORRHOEAE PCR Routine 01/28/2024 10:40 AM EST Screening examination for venereal disease HEPATITIS C SCREENING Routine 05/06/2023 LIPID PANEL Routine 05/06/2023 HIV SCREENING Routine 07/08/2009 from Last 3 Months or Most Recently Relevant to Health Maintenance Results * Thyroid stimulating hormone with reflex to free t4 and free t3 (01/28/2024 10:56 AM EST) Pathologist [facility] TSH 2.79 0.40 - 4.00 mcIU/mL LAB CHEMISTRY METHOD 01/28/2024 4:16 PM EST [facility] Blood Venous blood specimen / Unknown Venipuncture / Unknown 01/28/2024 10:56 AM EST 01/28/2024 10:56 AM EST us Sowmya Miranda MD LAB BLOOD ORDERABLES Final Result [facility] [address] [place] [address], [place] [phone] * CBC auto differential (01/28/2024 10:56 AM EST) WBC 8.5 4.8 - 10.8 K/mcL LAB HEMETOLOGY METHOD 01/28/2024 2:13 PM [facility] RBC 4.20 3.80 - 4.80 M/mcL LAB HEMETOLOGY METHOD 01/28/2024 2:13 PM [facility] Hemoglobin 11.9 11.5 - 16.0 g/dL LAB HEMETOLOGY METHOD 01/28/2024 2:13 PM [facility] Hematocrit 36.8 35.0 - 47.0 % LAB HEMETOLOGY METHOD 01/28/2024 2:13 PM [facility] MCV 88.2 79.0 - 98.0 FL LAB HEMETOLOGY METHOD 01/28/2024 2:13 PM [facility] MCH 28.5 27.0 - 32.0 pcg LAB HEMETOLOGY METHOD 01/28/2024 2:13 PM [facility] MCHC 32.3 32.0 - 37.0 g/dL LAB HEMETOLOGY METHOD 01/28/2024 2:13 PM [facility] RDW 13.4 11.0 - 15.0 % LAB HEMETOLOGY METHOD 01/28/2024 2:13 PM [facility] Platelets 381 130 - 400 K/mcL LAB HEMETOLOGY METHOD 01/28/2024 2:13 PM [facility] MPV 10.0 7.0 - 11.0 FL LAB HEMETOLOGY METHOD 01/28/2024 2:13 PM [facility] NRBC 0.0 <1.0 % LAB HEMETOLOGY METHOD 01/28/2024 2:13 PM [facility] NRBC Absolute 0.00 <0.10 K/mcL LAB HEMETOLOGY METHOD 01/28/2024 2:13 PM [facility] Neutrophils Relative 61.2 % LAB HEMETOLOGY METHOD 01/28/2024 2:13 PM [facility] Lymphocytes Relative 26.0 % LAB HEMETOLOGY METHOD 01/28/2024 2:13 PM [facility] Monocytes Relative 10.3 % LAB HEMETOLOGY METHOD 01/28/2024 2:13 PM [facility] Eosinophils Relative 1.5 % LAB HEMETOLOGY METHOD 01/28/2024 2:13 PM [facility] Basophils Relative 0.6 % LAB HEMETOLOGY METHOD 01/28/2024 2:13 PM [facility] Immature Granulocytes Relative 0.4 % LAB HEMETOLOGY METHOD 01/28/2024 2:13 PM [facility] Neutrophils Absolute 5.19 1.50 - 7.00 K/mcL LAB HEMETOLOGY METHOD 01/28/2024 2:13 PM [facility] Lymphocytes Absolute 2.20 1.00 - 5.00 K/mcL LAB HEMETOLOGY METHOD 01/28/2024 2:13 PM [facility] Monocytes Absolute 0.87 0.20 - 1.00 K/mcL LAB HEMETOLOGY METHOD 01/28/2024 2:13 PM [facility] Eosinophils Absolute 0.13 0.00 - 0.50 K/mcL LAB HEMETOLOGY METHOD 01/28/2024 2:13 PM [facility] Basophils Absolute 0.05 0.00 - 0.20 K/mcL LAB HEMETOLOGY METHOD 01/28/2024 2:13 PM [facility] Immature Granulocytes Absolute 0.03 0.00 - 0.03 K/mcL LAB HEMETOLOGY METHOD 01/28/2024 2:13 PM [facility] Blood Venous blood specimen / Unknown Venipuncture / Unknown 01/28/2024 10:56 AM EST 01/28/2024 10:56 AM EST us Sowmya Miranda MD LAB BLOOD ORDERABLES Final Result Performing Organization Address City/Va Hospital/ZIP Co de Phone Number [facility] [address] [place] [address], [place] [phone] * HPV with reflex genotype (01/28/2024 10:40 AM EST) HPV Negative Negative LAB MICROBIOLOGY METHOD 01/31/2024 2:12 PM EST [facility] Broom Cervix uteri structure / Unknown 01/28/2024 10:40 AM EST 01/31/2024 8:01 AM EST us Sowmya Miranda MD LAB MOLECULAR DIAGNOSTICS O RDERABLES Final Result Performing Organization Address [facility]/Va Hospital/[facility] Co de Phone Number [facility] [address] [place] [address], [place] [phone] * Chlamydia trachomatis and Neisseria gonorrhoeae molecular study (01/28/2024 10:40 AM EST) Pathologist [facility] Neisseria gonorrhoeae PCR Negative Negative LAB MOLECULAR DIAGNOSTICS METHOD 01/29/2024 8:46 AM EST [facility] Chlamydia trachomatis PCR Negative Negative LAB MOLECULAR DIAGNOSTICS METHOD 01/29/2024 8:46 AM EST [facility] Swab Cervix uteri structure / Unknown Non-blood Collection / Unknown 01/28/2024 10:40 AM EST 01/28/2024 10:40 AM EST us Sowmya Miranda MD LAB MICROBIOLOGY - GENERAL ORDERABLES Final Result Performing Organization Address City/Va Hospital/ZIP Co de Phone Number [facility] [address] [place] [address], [place] [phone] * Pap smear (01/28/2024 10:40 AM EST) Interpretation Negative for intraepithelial lesion or malignancy 02/04/2024 3:17 PM EST [facility] General Categorization Negative 02/04/2024 3:17 PM EST [facility] Other Findings Shift in chacorta suggestive of bacterial vaginosis Reparative changes 02/04/2024 3:17 PM [facility] LMP 01/18/2024 02/04/2024 3:17 PM [facility] Specimen Adequacy Satisfactory for evaluation 02/04/2024 3:17 PM [facility] Pap Methodology Liquid Based Pap Test 02/04/2024 3:17 PM [facility] Disclaimer The Pap test is a screening test which carries an inherent false negative rate. These test results should be correlated with the patient's clinical findings and history. This Pap test was processed using an automated screening system. Technical cytopathology services provided by [facility], at [address] [place] [address] (CLIA # [id number]/Kirsten Louis MD, Guest Services.) 02/04/2024 3:17 PM [facility] Console Pap Interpretation Reported 02/04/2024 3:17 PM [facility] Broom Cervix uteri structure / Unknown 01/28/2024 10:40 AM EST 01/28/2024 10:40 AM EST Sowmya Miranda MD LAB CYTOLOGY ORDERABLES Fin al Result [facility] [address] [place] [address], * Hepatitis C Screening (05/06/2023) Pathologist [facility] Hepatitis C Screening ABSTRACTED Historical Provider HEALTH MAINTENANCE Final Result * (ABNORMAL) Lipid panel (05/06/2023) LDL/HDL Ratio 4 0 - 4 Triglycerides 77 0 - 150 mg/dL Cholesterol 218(A) 0 - 200 mg/dL HDL 55 >=40 mg/dL LDL Cholesterol 148(A) 0 - 100 mg/dL Blood Venous blood specimen / Unknown Historical Provider LAB BLOOD ORDERABLES Quin l Result * HIV Screening (07/08/2009) Pathologist [facility] HIV Screening ABSTRACTED Historical Provider HEALTH MAINTENANCE Final Result from Last 3 Months or Most Recently Relevant to Health Maintenance Insurance MEDICAID - [place] [facility] MEDICARE ADVANTAGE on file Care Teams Social Insurance Specialist Relationship Specialty Start Date End Date Consuelo Garcia MD [address] [place] [id number] PCP - General Internal Medicine 11/21/20
[2024-04-08 11:31] LABS: MANUAL DIFF FLAG NO
[2024-04-08 11:36] LABS: Basophils Percent Auto 0.5 % (0-2); Eosinophils Absolute Auto 0.1 X10*3/uL (0.0-0.4); Eosinophils Percent Auto 1.3 % (0-4); Hematocrit 37.1 % (37.0-47.0); Hemoglobin 12.6 g/dl (12.0-16.0); Imm Gran Abs Auto 0.01 X10*3/uL (0.00-0.03); Imm Gran Pct Auto 0.1 % (0.0-0.4); Lymphocytes Absolute Auto 2.1 X10*3/uL (1.2-4.9); Lymphocytes Percent Auto 25.4 % (20-40); Mean Corpuscular Hemoglobin 28.8 pg (27.0-33.0); Mean Corpuscular Volume 84.9 fL (80.0-98.0); Mean Platelet Volume 9.2 fL (9.4-12.3); Monocytes Absolute Auto 0.9 X10*3/uL (0.1-1.2); Monocytes Percent Auto 10.4 % (2-11); Neutrophils Absolute Auto 5.2 x10*3/uL (2.0-8.3); Neutrophils Percent Auto 62.3 % (45-73); Platelet Count 396 X10*3/uL (160-400); Red Blood Count 4.37 X10*6/uL (4.20-5.50); Red Cell Distribution Width 13.3 % (11.0-16.0); White Blood Count 8.4 X10*3/uL (4.8-10.8)
[2024-04-08 11:58] LABS: Alanine Aminotransferase 17 U/L (0-31); Albumin Level 4.2 g/dL (3.5-5.0); Alkaline Phosphatase 53 U/L (39-117); Anion Gap 12 (12-20); Aspartate Amino Transferase 17 U/L (5-31); Bilirubin Total 0.8 mg/dL (0.0-1.0); Blood Urea Nitrogen 13 mg/dL (9-16); Calcium 9.4 mg/dL (8.4-10.2); Carbon Dioxide 25 mmol/L (22-29); Chloride 108 mmol/L (96-108); Creatinine Clr Calc Pharmacy 103.3; Estimated Glomerular Filt Rate > 60; Glucose Random 92 mg/dL (60-115); HCG Quantitative < 2 mIU/mL; Potassium 3.8 mmol/L (3.3-5.1); Sodium 141 mmol/L (135-145); Total Protein 7.4 g/dL (6.5-8.0)
[2024-04-08 12:12] LABS: Influenza A PCR NEGATIVE (Negative); Influenza B PCR NEGATIVE (Negative); Resp Syncy Virus RNA Qual PCR NEGATIVE (Negative); SARS COV2 PCR INHOUSE NEGATIVE (Negative)
[2024-04-08] MEDS: iohexoL 350 MG/ML 100 ML INFUS..BTL IV (14:42)
[2024-04-08] MEDS: Metoclopramide HCl 10 MG/2 ML VIAL IVPUSH (14:51)
[2024-04-08] MEDS: Ketorolac Tromethamine 15 MG/ML VIAL IVPUSH (14:51)
[2024-04-08] MEDS: 0.9 % Sodium Chloride 1,000 ML 999 ML IV (14:51)
[2024-04-08] MEDS: diphenhydrAMINE HCL 50 MG/ML VIAL 25 MG IVPUSH (14:51)
--- NOTE | 2024-04-08 16:00 | ECG_ITS ---
Test Reason : WEAKNESS Blood Pressure : */* mmHG Vent. Rate : 64 BPM Atrial Rate : 64 BPM P-R Int : 174 ms QRS Dur : 76 ms QT Int : 414 ms P-R-T Axes : 58 0 15 degrees QTcB Int : 427 ms Normal sinus rhythm Normal ECG No previous ECGs available Referred By: Marisa Diaz Electronically Signed By: ABEL RAM
[2024-04-08 16:03] VITALS: BP 111/73; PULSE 67; TEMP 36.6; O2SAT 99
--- NOTE | 2024-04-08 16:12 | MHC.EDTECH ---
attempted to do ekg, ER MD/ other Md at bedside at the moment will retry shortly.
--- NOTE | 2024-04-08 16:16 | P.CONGS_ITS ---
History of Present Illness Consult details Consult date: 04/08/24 Narrative: 38F here in the ED for diarrhea and abdominal pain. She says she has had these symptoms for over a week now. She describes frequent watery stools. She says hse pain is diffuse but maybe more on the left side. She denies blood per rectum. She says she has had some vomitting today so rolf decided to come to the ED. She denies fever or chills. Review of Systems 2 Constitutional: Constitutional: Denies chills and Denies fever(s) Cardiovascular: Cardiovascular: Denies chest pain, Denies dyspnea and Denies dyspnea on exertion Respiratory: Respiratory: Denies cough, Denies dyspnea and Denies dyspnea on exertion Gastrointestinal: Gastrointestinal: Denies hematochezia, Denies change in bowel habits and Reports diarrhea Genitourinary: Genitourinary: Denies hematuria Musculoskeletal: Musculoskeletal: Denies back pain and Denies limited range of motion Neurologic: Denies focal weakness and Denies convulsions Psychiatric: Psychiatric: Denies depression and Denies mood swings PMFSH Past Medical History Medical History Obesity (BMI 30.0-34.9) Diarrhea Hx of ectopic Depression Bipolar disorder Epigastric hernia Surgical History Surgical History Hx of tubal ligation History of loop electrical excision procedure (LEEP) Hx of laparoscopy History of Social History Social History Household Members: Children Housing: Apartment 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 at home: Yes (children-one is still a minor-18 year old will care for child day of surg.) Do you presently have visiting nurse or other home services: No Alcohol intake: former Patient Tobacco Use Status: Never used Tobacco Tobacco use type: Cigarette Cigarettes Per Day: 5 Years Smoked: 12 service: No Meds Allergies Allergy/AdvReac Type Severity Reaction Status Date / Time latex [LATEX] Allergy Mild Hives Verified 04/08/24 11:19 Home Medications ?Medication ?Instructions ?Recorded ?Confirmed ?Last Taken ?Type aripiprazole 5 mg tablet 5 mg PO DAILY 04/08/24 04/08/24 1 Week Ago History ~04/01/24 clonidine HCl 0.1 mg tablet 0.1 mg PO BEDTIME PRN Anxiety 04/08/24 04/08/24 Unknown History escitalopram oxalate 10 mg tablet 10 mg PO DAILY 04/08/24 04/08/24 1 Week Ago History ~04/01/24 escitalopram oxalate 20 mg tablet 20 mg PO DAILY@1500 04/08/24 04/08/24 1 Week Ago History ~04/01/24 gabapentin 400 mg capsule 800 mg PO TID 04/08/24 04/08/24 1 Week Ago History ~04/01/24 lamotrigine 25 mg tablet 50 mg PO TID 04/08/24 04/08/24 1 Week Ago History ~04/01/24 lorazepam 0.5 mg tablet 0.5 mg PO BID PRN Anxiety 04/08/24 04/08/24 Unknown History prazosin 5 mg capsule 5 mg PO BEDTIME 04/08/24 04/08/24 1 Week Ago History ~04/01/24 quetiapine 200 mg tablet,extended 200 mg PO BEDTIME 04/08/24 04/09/24 1 Week Ago History release 24 hr ~04/01/24 quetiapine 50 mg tablet,extended 50 mg PO DAILY 04/08/24 04/08/24 1 Week Ago History release 24 hr ~04/01/24 Physical Exam 2 Vital Signs: Vital Signs: Last Vital Signs Temp 98 F 04/08/24 16:03 Pulse 67 04/08/24 16:03 Resp 16 04/08/24 11:19 BP 111/73 04/08/24 16:03 Pulse Ox 99 04/08/24 16:03 O2 Del Method Room Air 04/08/24 16:03 BMI result Body Mass Index 32.7 Const: General: comfortable and no acute distress O rientation/consciousness: patient oriented x3 Neck: Neck: Yes no lymphadenopathy Resp: Effort & Inspection: normal respiratory effort Cardio: Rhythm: regular rhythm GI: Other: mild tenderness diffusely Palpation (GI): Soft to palpation and no guarding Neuro: General: patient oriented x3 Results Labs 04/10/24 05:22 04/10/24 05:22 Labs: Abnormal lab results 04/08/24 Range/Units 11:27 MPV 9.2 L (9.4-12.3) fL Short CBC 04/08/24 Range/Units 11:27 WBC 8.4 (4.8-10.8) X10*3/uL Hgb 12.6 (12.0-16.0) g/dl Hct 37.1 (37.0-47.0) % Plt Count 396 (160-400) X10*3/uL BMP 04/08/24 11:27 Sodium 141 Potassium 3.8 Chloride 108 Carbon Dioxide 25 BUN 13 Creatinine 0.70 Calcium 9.4 Liver Function 04/08/24 Range/Units 11:27 Total Bilirubin 0.8 (0.0-1.0) mg/dL AST 17 (5-31) U/L ALT 17 (0-31) U/L Alkaline Phosphatase 53 (39-117) U/L Albumin 4.2 (3.5-5.0) g/dL All other labs normal. Imaging Abdomen CT scan report/results: report reviewed and image reviewed CT scan - pelvis: report reviewed and image reviewed Assessment and Plan (1) Diarrhea: Status: Acute She has had diarrhea, and abdominal pain for 1 week now,. She describes vomitting today. I have reviewed her CT scan images and this shows mild thickening of part of the left colon which may suggest some form of colitis. Her abdominal exam is very benign. She has no leukocytosis. If she needs to be admitted for DANTE hydration and further woekup, she can be admitted to the hospitalist service. She has a very benign exam at this time. Procedures Date of Service Date of Service: 04/11/24
[2024-04-08] MEDS: Piperacillin Sodium/Tazobactam 3.375 GM in 0.9 % Sodium Chloride 50 ML IV (16:42)
[2024-04-08] MEDS: metroNIDAZOLE/NS 500 MG/100 ML PIGGYBACK 100 MG IV (16:50)
[2024-04-08 17:18] LABS: Lactic Acid 0.8 mmol/L (0.5-2.0)
[2024-04-08 18:37] LABS: Appearance Urine Clear; Color Urine Yellow; Glucose Urine UA Negative (Negative); Leukocyte Esterase Urine Negative (Negative); Nitrite Urine Negative (Negative); PH 6.5 (5.0-9.0); Specific Gravity - Urine 1.025 (1.005-1.025); UMIC TRIGGER UACC YES; Urine Blood Moderate (2+) (Negative); Urine Ketones 40 mg/dL (Negative); Urine Protein Trace mg/dL (Neg-Trace)
--- NOTE | 2024-04-08 18:46 | PHA.MEDREC ---
Addendum entered by Dank Mckeon [facility] 04/08/24 19:00: MED REC CHECKED BY [facility] Original Note: Pharmacy Consult ? Medication Reconciliation Pharmacy has completed the medication reconciliation. Spoke to pt to confirm meds, Despite claim history showing last fill in 11/2023, pt confirms to be taking them in 90 DS quantities. Pt clarified all dose frequencies.
[2024-04-08 18:49] LABS: Bacteria Urine 4+ (None Seen); Hyaline Casts Urine 0-2 /LPF (0-2); WBC Urine 0-5 /HPF (0-5)
--- NOTE | 2024-04-08 21:57 | P.HPHOSP_ITS ---
History of Present Illness Date of Service: 04/08/24 Attending physician on admission: [facility] Chief Complaint: diarrhea, abd pain, vomiting Patient is a 38-year-old female with a past medical history significant for mood disorder, who presented to the ED due to diarrhea, abdominal pain and vomiting x1 week. She reports the vomiting started today. Her daughter had similar symptoms beginning around the same time it only lasted about 3 days with less severe diarrhea or abdominal pain. He denies any fever or chills. No recent antibiotics or travel. She describes abdominal cramping and burning generalized but worse in the left lower quadrant. She denies any hematochezia or hematemesis. Her last episode of diarrhea was yesterday. She also reports some urinary frequency recently which has improved slightly today. She has been unable to tolerate much by mouth but was able to tolerate the clear liquid diet and would like to advance her diet slightly. Review of Systems 2 Constitutional: Constitutional: Denies body ache(s), Denies chills, Denies fatigue, Denies fever(s) and Reports headache(s) Eyes: Eyes: Denies change in vision and Denies photophobia ENT: Reports headache(s), Denies nasal congestion, Denies nasal discharge and Denies sore throat Cardiovascular: Cardiovascular: Denies chest pain, Denies rapid heart rate, Denies leg edema, Denies lightheadedness and Denies dyspnea Respiratory: Respiratory: Denies chest congestion, Denies cough, Denies dyspnea and Denies wheezing Gastrointestinal: Gastrointestinal: Reports abdominal pain, Denies melena, Denies hematochezia, Reports GI cramping, Reports diarrhea, Reports nausea, Reports vomiting and Denies hematemesis Genitourinary: Genitourinary: Denies dysuria and Denies urinary urgency C omments: urinary frequency Musculoskeletal: Musculoskeletal: Denies back pain Integumentary/Breasts: Skin/Breast: Denies rash Neurologic: Denies confusion and Reports headache(s) Psychiatric: Psychiatric: Denies confusion Endocrine: Endocrine: Denies fatigue Hematologic/Lymphatic: Hematologic/Lymphatic: Denies easy bleeding and Denies easy bruising Allergic/Immunologic: Allergic/Immunologic: Denies wheezing [facility] Medical History (Updated 04/08/24 @ 22:05 by Alisa Mascorro PA-C) Obesity (BMI 30.0-34.9) Diarrhea Hx of ectopic Depression Bipolar disorder Epigastric hernia Functional capacity: independent ambulation Surgical History Hx of tubal ligation History of loop electrical excision procedure (LEEP) Hx of laparoscopy History of Social History Are you a primary primary care md to a significant other at home: Yes (children-one is still a minor-18 year old will care for child day of surg.) Do you presently have visiting nurse or other home services: No Patient Tobacco Use Status: Current everyday Tobacco user Tobacco use type: Cigarette Cigarettes Per Day: 5 Years Smoked: 12 Advance Directives: No Advance Directives Information Provided: No Do you have a plan to hurt others: No Plan Narrative: No smoking, alcohol or drug use Meds Allergies Allergy/AdvReac Type Severity Reaction Status Date / Time latex [LATEX] Allergy Mild Hives Verified 04/08/24 11:19 Home Medications ?Medication ?Instructions ?Recorded ?Confirmed ?Last Taken ?Type aripiprazole 5 mg tablet 5 mg PO DAILY 04/08/24 04/08/24 1 Week Ago History ~04/01/24 clonidine HCl 0.1 mg tablet 0.1 mg PO BEDTIME PRN Anxiety 04/08/24 04/08/24 Unknown History escitalopram oxalate 10 mg tablet 10 mg PO DAILY 04/08/24 04/08/24 1 Week Ago History ~04/01/24 escitalopram oxalate 20 mg tablet 20 mg PO DAILY@1500 04/08/24 04/08/24 1 Week Ago History ~04/01/24 gabapentin 400 mg capsule 800 mg PO TID 04/08/24 04/08/24 1 Week Ago History ~04/01/24 lamotrigine 25 mg tablet 50 mg PO TID 04/08/24 04/08/24 1 Week Ago History ~04/01/24 lorazepam 0.5 mg tablet 0.5 mg PO BID PRN Anxiety 04/08/24 04/08/24 Unknown History prazosin 5 mg capsule 5 mg PO BEDTIME 04/08/24 04/08/24 1 Week Ago History ~04/01/24 quetiapine 200 mg tablet,extended 500 mg PO BEDTIME 04/08/24 04/08/24 1 Week Ago History release 24 hr ~04/01/24 quetiapine 50 mg tablet,extended 50 mg PO DAILY 04/08/24 04/08/24 1 Week Ago History release 24 hr ~04/01/24 Physical Exam 2 Vital Signs and Narrative: Vital Signs: Last Vital Signs Temp 98 F 04/08/24 16:03 Pulse 67 04/08/24 16:03 Resp 16 04/08/24 11:19 BP 111/73 04/08/24 16:03 Pulse Ox 99 04/08/24 16:03 O2 Del Method Room Air 04/08/24 16:03 BMI result Body Mass Index 32.7 General: AOx3, no acute distress Resp: CTA bilaterally CVS: S1, S2, RRR GI: +BS, generalized tenderness, worse in left lower quadrant, no guarding, no distention Skin: Warm, dry Neuro: Cranial nerves II-XII grossly intact bilaterally. Motor grossly intact bilaterally Extremities: No LE edema Psych: Appropriate affect Const: General: No confusion Orientation/consciousness: No confusion Eyes: Direct Ophthalmoscopy: No photophobia Neuro: General: No confusion Results Labs 04/08/24 11:27 04/08/24 11:27 Labs: Laboratory Results - last 24 hr 04/08/24 04/08/24 04/08/24 11:27 16:32 16:51 MCV 84.9 MCH 28.8 MCHC 34.0 RDW 13.3 Plt Count 396 MPV 9.2 L Immature Gran % (Auto) 0.1 Neut % (Auto) 62.3 Lymph % (Auto) 25.4 [place] % (Auto) 10.4 Eos % (Auto) 1.3 Baso % (Auto) 0.5 Lymph # (Auto) 2.1 [place] # (Auto) 0.9 Eos # (Auto) 0.1 Baso # (Auto) 0.0 Abs Immat Gran (auto) 0.01 Absolute Neuts (auto) 5.2 Absolute Nucleated RBC 0.000 Nucleated RBC % (auto) 0.0 Anion Gap 12 Estim Creat Clear Calc 103.3 Estimated GFR > 60 Random Glucose 92 Lactic Acid 0.8 Calcium 9.4 Magnesium 2.0 Total Bilirubin 0.8 AST 17 ALT 17 Alkaline Phosphatase 53 Total Protein 7.4 Albumin 4.2 Beta HCG, Quant < 2 Urine Color Yellow Urine Appearance Clear Urine pH 6.5 Ur Specific [place] 1.025 Urine Protein Trace Urine Glucose (UA) Negative Urine Ketones 40 Urine Blood Moderate (2+) H Urine Nitrite Negative Ur Leukocyte Esterase Negative Urine RBC 3-5 H Urine WBC 0-5 Ur Squamous Epith Cells 11-20 Urine Bacteria 4+ Hyaline Casts 0-2 Influenza Type A (PCR) NEGATIVE Influenza Type B (PCR) NEGATIVE RSV RNA Qual (PCR) NEGATIVE SARS-CoV-2 RNA (RT-PCR) NEGATIVE Assessment and Plan (1) Colitis: Status: Acute (2) Diarrhea: Status: Acute (3) Obesity (BMI 30.0-34.9): Status: Chronic Plan Patient is a 38-year-old female with a past medical history significant for mood disorder, who presented to the ED due to diarrhea, abdominal pain and vomiting x1 week. Colitis, diarrhea - WBC 0.4, vital signs stable, no sepsis - abdominopelvic CT with colonic thickening, ischemic versus infectious versus inflammatory - COVID/flu/RSV negative - UA with 0-5 WBC but 4+ bacteria, culture pending - stool studies added including C diff and GI panel - consulted by Dr. Hightower, surgery, who suggested admission with IV antibiotics, ischemic bowel unlikely - given 1 L IV fluids in ED - started on Zosyn and Flagyl, switch to Levaquin and Flagyl - advance to full liquid diet, continue to advance diet as tolerated - GI consult - monitor CBC and BMP Mood disorder - continue quetiapine, prazosin, lorazepam, lamotrigine, gabapentin, escitalopram, clonidine and aripiprazole Obesity - BMI 32.7 - weight loss encouraged Full code VTE prophylaxis: Lovenox Patient with acute colitis and diarrhea with abnormal CT findings concerning for ischemic versus infectious versus inflammatory colitis requiring admission for IV antibiotics and further GI consultation, for at least 2 midnights stay. Quality Stroke Does the patient have a stroke diagnosis?: No VTE Prior VTE?: No VTE Risk Level:: Medical - moderate - high VTE Device Contraindication: Treatment Not Indicated VTE Drug Contraindication: N/A - Med Ordered
[2024-04-08] MEDS: Gabapentin 400 MG CAPSULE 800 MG PO (23:49)
[2024-04-08] MEDS: lamoTRIgine 25 MG TABLET 50 MG PO (23:49)
[2024-04-08] MEDS: Enoxaparin Sodium 40 MG/0.4 ML SYRINGE SUBCUT (23:50)
[2024-04-08 23:53] VITALS: BP 106/70; PULSE 66; RESP 16; TEMP 37.1; O2SAT 98
[2024-04-08 23:54] VITALS: BP 106/70
[2024-04-08] MEDS: Prazosin HCL 5 MG CAPSULE PO (23:54)
[2024-04-08] MEDS: Acetaminophen 325 MG TABLET 975 MG PO (23:56)
[2024-04-09] MEDS: levoFLOXacin/D5W 750 MG/150 ML PIGGYBACK 100 MG IV (01:15)
[2024-04-09] MEDS: metroNIDAZOLE/NS 500 MG/100 ML PIGGYBACK 100 MG IV ×4 (01:16→23:51)
[2024-04-09] MEDS: 0.9 % Sodium Chloride Flush 3 ML SYRINGE IVFLUSH ×3 (01:18→15:07)
[2024-04-09 03:44] VITALS: BP 107/76; PULSE 71; RESP 16; TEMP 36.9; O2SAT 97
--- NOTE | 2024-04-09 04:25 | PC.NURSE ---
Patient is alert and oriented x4, VSS. Patient medicated with Tylenol 975 mg PO for headache and diffuse abdominal pain with good effect, pain decreased from 8/10 to 4/10. Patient requested and provided with apple sauce and mone maem, tolerated well. Patient currently resting in stretcher bed, RR 16, respirations even and unlabored, call becerra in patient's reach.
[2024-04-09 06:48] LABS: MANUAL DIFF FLAG NO
[2024-04-09 06:49] LABS: Basophils Percent Auto 0.6 % (0-2); Eosinophils Absolute Auto 0.2 X10*3/uL (0.0-0.4); Eosinophils Percent Auto 2.3 % (0-4); Hematocrit 32.3 % (37.0-47.0); Hemoglobin 10.8 g/dl (12.0-16.0); Imm Gran Abs Auto 0.01 X10*3/uL (0.00-0.03); Imm Gran Pct Auto 0.1 % (0.0-0.4); Lymphocytes Absolute Auto 2.2 X10*3/uL (1.2-4.9); Lymphocytes Percent Auto 31.8 % (20-40); Mean Corpuscular HGB Conc 33.4 g/dl (31.0-35.0); Mean Corpuscular Hemoglobin 28.6 pg (27.0-33.0); Mean Corpuscular Volume 85.7 fL (80.0-98.0); Mean Platelet Volume 9.4 fL (9.4-12.3); Monocytes Absolute Auto 0.7 X10*3/uL (0.1-1.2); Monocytes Percent Auto 10.8 % (2-11); Neutrophils Absolute Auto 3.7 x10*3/uL (2.0-8.3); Neutrophils Percent Auto 54.4 % (45-73); Platelet Count 346 X10*3/uL (160-400); Red Blood Count 3.77 X10*6/uL (4.20-5.50); Red Cell Distribution Width 13.2 % (11.0-16.0); White Blood Count 6.9 X10*3/uL (4.8-10.8)
[2024-04-09 07:07] LABS: Anion Gap 10 (12-20); Blood Urea Nitrogen 7 mg/dL (9-16); Calcium 8.4 mg/dL (8.4-10.2); Carbon Dioxide 23 mmol/L (22-29); Chloride 109 mmol/L (96-108); Creatinine Clr Calc Pharmacy 122.6; Estimated Glomerular Filt Rate > 60; Glucose Random 94 mg/dL (60-115); Potassium 3.4 mmol/L (3.3-5.1); Sodium 139 mmol/L (135-145)
[2024-04-09 08:25] VITALS: BP 130/85; PULSE 84; RESP 16; TEMP 36.9; O2SAT 97
--- NOTE | 2024-04-09 08:53 | P.PNIM_ITS ---
Subjective Subjective Date of Service: 04/09/24 Interval History: diarrhae Review of Systems abd pain and nausea somewhat improving generalised weak Physical Exam 2 Vital Signs: Vital Signs: Last Vital Signs Temp 98.4 F 04/09/24 08:25 Pulse 84 04/09/24 08:25 Resp 16 04/09/24 08:25 BP 130/85 04/09/24 08:25 Pulse Ox 97 04/09/24 08:25 O2 Del Method Room Air 04/09/24 08:25 BMI result Body Mass Index 32.7 General: AOx3, no acute distress Resp: CTA bilaterally CVS: S1, S2, RRR GI: +BS, generalized tenderness-left lower quadrant pain somewhat improving, no guarding, no distention Skin: Warm, dry, no edema Neuro:moves all ext Objective Data Active Medications Acetaminophen (Acetaminophen 325 Mg Tablet) 975 mg PO Q6H PRN PRN Reason: Pain, Mild 1-3,fever,headache Last Admin: 04/08/24 23:56 Dose: 975 mg Documented By: LIA Aripiprazole (Aripiprazole 5 Mg Tablet) 5 mg PO DAILY [facility] Calcium Carbonate (Calcium Carbonate 750 Mg Tab.Chew) 750 mg PO Q4H PRN PRN Reason: Heartburn Clonidine HCl (Clonidine Hcl 0.1 Mg Tablet) 0.1 mg PO BEDTIME PRN; Protocol PRN Reason: Anxiety Enoxaparin Sodium (Enoxaparin Sodium 40 Mg/0.4 Ml Syringe) 40 mg SUBCUT Q24H [facility] Last Admin: 04/08/24 23:50 Dose: 40 mg Documented By: LIA Escitalopram Oxalate (Escitalopram Oxalate 10 Mg Tablet) 10 mg PO DAILY [facility] Escitalopram Oxalate (Escitalopram Oxalate 20 Mg Tablet) 20 mg PO DAILY@1500 [facility] Gabapentin (Gabapentin 400 Mg Capsule) 800 mg PO TID [facility] Last Admin: 04/08/24 23:49 Dose: 800 mg Documented By: LIA Metronidazole (Flagyl) 500 mg in 100 mls @ 100 mls/hr IV Q8H [facility] Last Infusion: 04/09/24 02:30 Dose: Infused Documented By: LIA Levofloxacin (Levaquin) 750 mg in 150 mls @ 100 mls/hr IV Q24H [facility] Last Infusion: 04/09/24 02:50 Dose: Infused Documented By: LIA Lamotrigine (Lamotrigine 25 Mg Tablet) 50 mg PO TID [facility] Last Admin: 04/08/24 23:49 Dose: 50 mg Documented By: LIA Lorazepam (Lorazepam 0.5 Mg Tablet) 0.5 mg PO BID PRN PRN Reason: Anxiety Magnesium Hydroxide (Milk Of Magnesia 30 Ml Oral.Susp) 30 ml PO DAILY PRN PRN Reason: Constipation Melatonin (Melatonin 3 Mg Tablet) 6 mg PO BEDTIME PRN PRN Reason: Insomnia Ondansetron HCl (Ondansetron Hcl 4 Mg/2 Ml Vial) 4 mg IVPUSH Q8H PRN PRN Reason: Nausea and Vomiting Prazosin HCl (Prazosin Hcl 5 Mg Capsule) 5 mg PO BEDTIME [facility]; Protocol Last Admin: 04/08/24 23:54 Dose: 5 mg Documented By: LIA Quetiapine Fumarate (Quetiapine Fumarate 100 Mg Tablet) 250 mg PO BID [facility] Quetiapine Fumarate (Quetiapine Fumarate 25 Mg Tablet) 25 mg PO BID [facility] Sodium Chloride (0.9 % Sodium Chloride Flush 3 Ml Syringe) 3 ml IVFLUSH QSHIFT [facility] Last Admin: 04/09/24 01:18 Dose: 3 ml Documented By: LIA Labs 04/09/24 06:36 04/09/24 06:36 Labs: Laboratory Results - last 24 hr 04/08/24 04/08/24 04/08/24 11:27 16:32 16:51 MCV 84.9 MCH 28.8 MCHC 34.0 RDW 13.3 Plt Count 396 MPV 9.2 L Immature Gran % (Auto) 0.1 Neut % (Auto) 62.3 Lymph % (Auto) 25.4 [place] % (Auto) 10.4 Eos % (Auto) 1.3 Baso % (Auto) 0.5 Lymph # (Auto) 2.1 [place] # (Auto) 0.9 Eos # (Auto) 0.1 Baso # (Auto) 0.0 Abs Immat Gran (auto) 0.01 Absolute Neuts (auto) 5.2 Absolute Nucleated RBC 0.000 Nucleated RBC % (auto) 0.0 Anion Gap 12 Estim Creat Clear Calc 103.3 Estimated GFR > 60 Random Glucose 92 Lactic Acid 0.8 Calcium 9.4 Magnesium 2.0 Total Bilirubin 0.8 AST 17 ALT 17 Alkaline Phosphatase 53 Total Protein 7.4 Albumin 4.2 Beta HCG, Quant < 2 Urine Color Yellow Urine Appearance Clear Urine pH 6.5 Ur Specific [place] 1.025 Urine Protein Trace Urine Glucose (UA) Negative Urine Ketones 40 Urine Blood Moderate (2+) H Urine Nitrite Negative Ur Leukocyte Esterase Negative Urine RBC 3-5 H Urine WBC 0-5 Ur Squamous Epith Cells 11-20 Urine Bacteria 4+ Hyaline Casts 0-2 Influenza Type A (PCR) NEGATIVE Influenza Type B (PCR) NEGATIVE RSV RNA Qual (PCR) NEGATIVE SARS-CoV-2 RNA (RT-PCR) NEGATIVE 04/09/24 06:36 MCV 85.7 MCH 28.6 MCHC 33.4 RDW 13.2 Plt Count 346 MPV 9.4 Immature Gran % (Auto) 0.1 Neut % (Auto) 54.4 Lymph % (Auto) 31.8 [place] % (Auto) 10.8 Eos % (Auto) 2.3 Baso % (Auto) 0.6 Lymph # (Auto) 2.2 [place] # (Auto) 0.7 Eos # (Auto) 0.2 Baso # (Auto) 0.0 Abs Immat Gran (auto) 0.01 Absolute Neuts (auto) 3.7 Absolute Nucleated RBC 0.000 Nucleated RBC % (auto) 0.0 Anion Gap 10 L Estim Creat Clear Calc 122.6 Estimated GFR > 60 Random Glucose 94 Lactic Acid Calcium 8.4 D Magnesium Total Bilirubin AST ALT Alkaline Phosphatase Total Protein Albumin Beta HCG, Quant Urine Color Urine Appearance Urine pH Ur Specific [place] Urine Protein Urine Glucose (UA) Urine Ketones Urine Blood Urine Nitrite Ur Leukocyte Esterase Urine RBC Urine WBC Ur Squamous Epith Cells Urine Bacteria Hyaline Casts Influenza Type A (PCR) Influenza Type B (PCR) RSV RNA Qual (PCR) SARS-CoV-2 RNA (RT-PCR) Assessment and Plan (1) Colitis: Status: Acute Assessment and Plan: 38-year-old female with a past medical history significant for mood disorder, who presented to the ED due to diarrhea, abdominal pain and vomiting x1 week. Colitis, diarrhea no leucocytosis vital signs stable, no sepsis abd CT with colonic thickening, ischemic versus infectious versus inflammatory COVID/flu/RSV negative, UA with 0-5 WBC but 4+ bacteria, culture pending stool studies added including C diff and GI panel plan: consulted by Dr. Hightower, surgery, who suggested admission with IV antibiotics, ischemic bowel unlikely-Zosyn and Flagyl, switch to Levaquin and Flagyl advance to full liquid diet, continue to advance diet as tolerated GI consult - monitor CBC and BMP Mood disorder - continue quetiapine, prazosin, lorazepam, lamotrigine, gabapentin, escitalopram, clonidine and aripiprazole Obesity - BMI 32.7 - weight loss encouraged Full code VTE prophylaxis: Lovenox Patient with acute colitis and diarrhea with abnormal CT findings concerning for ischemic versus infectious versus inflammatory colitis requiring admission for IV antibiotics and further GI consultation, for at least 2 midnights sta Quality Stroke Does the patient have a stroke diagnosis?: No VTE Prior VTE?: No VTE Risk Level:: Medical - moderate - high VTE Device Contraindication: Treatment Not Indicated VTE Drug Contraindication: N/A - Med Ordered
--- NOTE | 2024-04-09 09:45 | P.CNGI_ITS ---
History of Present Illness Data of Consult Service Date: 04/09/24 Requesting physician: Margarita Patricio Primary Care Provider: Unknown Physician HPI Reason for consult: Colitis 38 YF with mood disorder seen at [facility] on 04/08/24 with diarrhea, generalized abdominal pain and vomiting x1 week. Pt states her symptoms started on 03/28/24 a few hrs after she had a Cheese Burger at a restuarant. Her 15 yr old daughter had a different cheese burger and developed the same symptoms. Diarrhea consisted of loose to watery stools > 5 BMs per day. Pt denies noticing any blood or mucous in the stool. Diarrhea started improving and on 04/05/24, she noted GARCIA with nausea and vomting and she was unable to keep anything down on 04/06 and 04/07 Denies having any BM today. She ate rice, chicken and green beans today and noted an increase in abdominal pain 10 to 15 min later. Pt complains of cramping and burning generalized abd pain - worse in left lower quadrant. Pt denies recent antibiotics or travel. She denies any fever or chills. She denies any hematemesis, hematochezia or melena. Last episode of diarrhea was on 07/06/24. She also reports some urinary frequency recently which has improved slightly today. Pt has a hx of migraine HAs in the past and present symptoms are similar to an episode of Migraine GARCIA Patient denies smoking or ETOH abuse. She denies known family history of IBD or GI malignancy. Pt's Mom had precancerous polyps removed during colonoscopy in her late 40's. 04/08/[address] SCAN SHOWED: 1. Colonic thickening, consistent with ischemia, infection, versus inflammation. Follow-up colonoscopy is recommended to exclude underlying neoplasm. 2. Trace right pleural effusion. Review of Systems 2 Constitutional: Constitutional: Denies body ache(s), Denies chills, Denies fatigue, Denies fever(s) and Reports headache(s) Eyes: Eyes: Denies change in vision and Denies photophobia ENT: Reports headache(s), Denies nasal congestion, Denies nasal discharge and Denies sore throat Cardiovascular: Cardiovascular: Denies chest pain, Denies rapid heart rate, Denies leg edema, Denies lightheadedness and Denies dyspnea Respiratory: Respiratory: Denies chest congestion, Denies cough, Denies dyspnea and Denies wheezing Gastrointestinal: Gastrointestinal: Reports abdominal pain, Denies melena, Denies hematochezia, Reports GI cramping, Reports diarrhea, Reports nausea, Reports vomiting and Denies hematemesis Genitourinary: Genitourinary: Denies dysuria and Denies urinary urgency C omments: urinary frequency Musculoskeletal: Musculoskeletal: Denies back pain Integumentary/Breasts: Skin/Breast: Denies rash Neurologic: Denies confusion and Reports headache(s) Psychiatric: Psychiatric: Denies confusion Endocrine: Endocrine: Denies fatigue Hematologic/Lymphatic: Hematologic/Lymphatic: Denies easy bleeding and Denies easy bruising Allergic/Immunologic: Allergic/Immunologic: Denies wheezing PMFSH Past Medical History Medical History Obesity (BMI 30.0-34.9) Diarrhea Hx of ectopic Depression Bipolar disorder Epigastric hernia Surgical History Surgical History Hx of tubal ligation History of loop electrical excision procedure (LEEP) Hx of laparoscopy History of Social History Social History 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-18 year old will care for child day of surg.) Do you presently have visiting nurse or other home services: No Alcohol intake: former Patient Tobacco Use Status: Current everyday Tobacco user Tobacco use type: Cigarette Cigarettes Per Day: 5 Years Smoked: 12 Smoked in Last 30 Days: No Use of substances other than those prescribed or required for medical reasons: No Advance Directives: No Advance Directives Information Provided: No Do you have a plan to hurt others: No Plan Patient : No service: No Meds Allergies Allergy/AdvReac Type Severity Reaction Status Date / Time latex [LATEX] Allergy Mild Hives Verified 04/08/24 11:19 Active Medications: Current Medications Acetaminophen (Acetaminophen 325 Mg Tablet) 975 mg PO Q6H PRN PRN Reason: Pain, Mild 1-3,fever,headache Last Admin: 04/08/24 23:56 Dose: 975 mg Aripiprazole (Aripiprazole 5 Mg Tablet) 5 mg PO DAILY ERIC Calcium Carbonate (Calcium Carbonate 750 Mg Tab.Chew) 750 mg PO Q4H PRN PRN Reason: Heartburn Clonidine HCl (Clonidine Hcl 0.1 Mg Tablet) 0.1 mg PO BEDTIME PRN; Protocol PRN Reason: Anxiety Enoxaparin Sodium (Enoxaparin Sodium 40 Mg/0.4 Ml Syringe) 40 mg SUBCUT Q24H [facility] Last Admin: 04/08/24 23:50 Dose: 40 mg Escitalopram Oxalate (Escitalopram Oxalate 10 Mg Tablet) 10 mg PO DAILY [facility] Escitalopram Oxalate (Escitalopram Oxalate 20 Mg Tablet) 20 mg PO DAILY@1500 ERIC Gabapentin (Gabapentin 400 Mg Capsule) 800 mg PO TID [facility] Last Admin: 04/08/24 23:49 Dose: 800 mg Metronidazole (Flagyl) 500 mg in 100 mls @ 100 mls/hr IV Q8H [facility] Last Infusion: 04/09/24 02:30 Dose: Infused Levofloxacin (Levaquin) 750 mg in 150 mls @ 100 mls/hr IV Q24H [facility] Last Infusion: 04/09/24 02:50 Dose: Infused Lamotrigine (Lamotrigine 25 Mg Tablet) 50 mg PO TID [facility] Last Admin: 04/08/24 23:49 Dose: 50 mg Lorazepam (Lorazepam 0.5 Mg Tablet) 0.5 mg PO BID PRN PRN Reason: Anxiety Magnesium Hydroxide (Milk Of Magnesia 30 Ml Oral.Susp) 30 ml PO DAILY PRN PRN Reason: Constipation Melatonin (Melatonin 3 Mg Tablet) 6 mg PO BEDTIME PRN PRN Reason: Insomnia Ondansetron HCl (Ondansetron Hcl 4 Mg/2 Ml Vial) 4 mg IVPUSH Q8H PRN PRN Reason: Nausea and Vomiting Prazosin HCl (Prazosin Hcl 5 Mg Capsule) 5 mg PO BEDTIME [facility]; Protocol Last Admin: 04/08/24 23:54 Dose: 5 mg Quetiapine Fumarate (Quetiapine Fumarate 100 Mg Tablet) 250 mg PO BID [facility] Quetiapine Fumarate (Quetiapine Fumarate 25 Mg Tablet) 25 mg PO BID [facility] Sodium Chloride (0.9 % Sodium Chloride Flush 3 Ml Syringe) 3 ml IVFLUSH QSHIFT [facility] Last Admin: 04/09/24 01:18 Dose: 3 ml Home Medications ?Medication ?Instructions ?Recorded ?Confirmed ?Last Taken ?Type aripiprazole 5 mg tablet 5 mg PO DAILY 04/08/24 04/08/24 1 Week Ago History ~04/01/24 clonidine HCl 0.1 mg tablet 0.1 mg PO BEDTIME PRN Anxiety 04/08/24 04/08/24 Unknown History escitalopram oxalate 10 mg tablet 10 mg PO DAILY 04/08/24 04/08/24 1 Week Ago History ~04/01/24 escitalopram oxalate 20 mg tablet 20 mg PO DAILY@1500 04/08/24 04/08/24 1 Week Ago History ~04/01/24 gabapentin 400 mg capsule 800 mg PO TID 04/08/24 04/08/24 1 Week Ago History ~04/01/24 lamotrigine 25 mg tablet 50 mg PO TID 04/08/24 04/08/24 1 Week Ago History ~04/01/24 lorazepam 0.5 mg tablet 0.5 mg PO BID PRN Anxiety 04/08/24 04/08/24 Unknown History prazosin 5 mg capsule 5 mg PO BEDTIME 04/08/24 04/08/24 1 Week Ago History ~04/01/24 quetiapine 200 mg tablet,extended 200 mg PO BEDTIME 04/08/24 04/09/24 1 Week Ago History release 24 hr ~04/01/24 quetiapine 50 mg tablet,extended 50 mg PO DAILY 04/08/24 04/08/24 1 Week Ago History release 24 hr ~04/01/24 Physical Exam 2 Vital Signs: Vital Signs: Last Vital Signs Temp 98.4 F 04/09/24 08:25 Pulse 84 04/09/24 08:25 Resp 16 04/09/24 08:25 BP 130/85 04/09/24 08:25 Pulse Ox 97 04/09/24 08:25 O2 Del Method Room Air 04/09/24 08:25 BMI result Body Mass Index 32.7 Const: General: No confusion Nutritional Appearance: average body habitus Orientation/consciousness: No confusion Limitations: no limitations HEENT: Head: Yes normal to inspection Ears: hearing grossly normal bilaterally Eyes: Sclerae: sclerae normal Pupils: Equal, round and reactive pupils present Direct Ophthalmoscopy: No photophobia Neck: Neck: Yes normal visual inspection Chest: Chest palpation & inspection: normal inspection of the chest Resp: Effort & Inspection: normal respiratory effort Auscultation: clear to auscultation bilaterally Cardio: Palpation: normal PMI Rate: regular rate Rhythm: regular rhythm Heart sounds: S1 normal heart sound present, S2 normal heart sound present and no murmurs GI: Palpation (GI): Soft to palpation, Tenderness to palpation present (GI) (Mild to moderate LLQ tenderness without rebound) and No hepatosplenomegaly present Auscultation: normal bowel sounds Rectal Exam - Female: deferred Skin: General skin exam: no rashes or lesions noted Neuro: General: No confusion Cranial nerves: Yes Equal, round and reactive pupils present Psych: Appearance: grossly normal Mental Status: mental status grossly normal Results Labs 04/09/24 06:36 04/09/24 06:36 Labs: Short CBC 04/08/24 04/09/24 Range/Units 11:27 06:36 WBC 8.4 6.9 (4.8-10.8) X10*3/uL Hgb 12.6 10.8 L (12.0-16.0) g/dl Hct 37.1 32.3 L (37.0-47.0) % Plt Count 396 346 (160-400) X10*3/uL BMP 04/08/24 04/09/24 11:27 06:36 Sodium 141 139 Potassium 3.8 3.4 Chloride 108 109 H Carbon Dioxide 25 23 BUN 13 7 L Creatinine 0.70 0.59 Calcium 9.4 8.4 D Liver Function 04/08/24 Range/Units 11:27 Total Bilirubin 0.8 (0.0-1.0) mg/dL AST 17 (5-31) U/L ALT 17 (0-31) U/L Alkaline Phosphatase 53 (39-117) U/L Albumin 4.2 (3.5-5.0) g/dL Urine 04/08/24 Range/Units 16:32 Urine Color Yellow Urine Appearance Clear Urine pH 6.5 (5.0-9.0) Ur Specific [place] 1.025 (1.005-1.025) Urine Protein Trace (Neg-Trace) mg/dL Urine Glucose (UA) Negative (Negative) mg/dL Assessment and Plan (1) Colitis: Status: Acute (2) Diarrhea: Status: Acute Plan 38 YF with mood disorder seen at [facility] on 04/08/24 with diarrhea, generalized abdominal pain and vomiting x1 week. Pt states her symptoms started on 03/28/24 a few hrs after she had a Cheese Burger at a [facility]. Her 15 yr old daughter had a different cheese burger and developed the same symptoms. She ate rice, chicken and green beans today and noted an increase in abdominal pain 10 to [address] scan showed Colonic thickening, consistent with ischemia, infection, versus inflammation Pt likely had acute bacterial gastroenteritis/food posioning with superimposed ischemic colitis due to dehydration from vomiting and decreased PO intake. IBD is less likely given acute onset of symptoms. RECOMMENDATIONS: 1. Agree with IV antibiotics and aneti-emetics 2. Stool for GI panel if pt is able to give a specimen 3. Full liquid diet x 24 hrs and if pt is able to tolerate it without abdominal pain then diet can be advanced. 4. Pt can be scheduled for a colonoscopy as an outpatient if her symptoms do not resolve in 1-2 weeks Procedures Date of Service Date of Service: 04/09/24
[2024-04-09] MEDS: Acetaminophen 325 MG TABLET 975 MG PO (09:47)
[2024-04-09] MEDS: ARIPiprazole 5 MG TABLET PO (09:48)
[2024-04-09] MEDS: lamoTRIgine 25 MG TABLET 50 MG PO ×3 (09:49→21:33)
[2024-04-09] MEDS: Gabapentin 400 MG CAPSULE 800 MG PO ×3 (09:49→21:33)
[2024-04-09] MEDS: Escitalopram Oxalate 10 MG TABLET PO (09:49)
--- NOTE | 2024-04-09 10:49 | MHC.CM.PN ---
PT REPORTS SHE LIVES WITH HER KIDS AND IS INDEPENDENT WITH CARE SHE HAS NO DME AND NO SERVICES PT DOES NOT HAVE A HCP, SHE DECLINES COMPLETING ONE PCP AT [facility] DELIVERED PTS PREFERRED DCP: HOME NO SERVICES VIA PRIVATE TRANSPORT
[2024-04-09] MEDS: QUEtiapine Fumarate 25 MG TABLET 50 MG PO (11:17)
--- NOTE | 2024-04-09 11:17 | PC.NURSE ---
pt medicated per MAR- quetiapine 50mg manually documented d/t barcode scanner malfunction
--- NOTE | 2024-04-09 11:22 | PM.PNGS ---
Subjective Subjective Date of Service: 04/09/24 Interval history: Says she feels well this morning Hungry and wants to eat No diarrhea Says symptoms have resolved Physical Exam Vital Signs: Vital Signs: Last Vital Signs Temp 98.4 F 04/09/24 08:25 Pulse 84 04/09/24 08:25 Resp 16 04/09/24 08:25 BP 130/85 04/09/24 08:25 Pulse Ox 97 04/09/24 08:25 O2 Del Method Room Air 04/09/24 08:25 BMI result Body Mass Index 32.7 Const: General: comfortable and no acute distress Resp: Effort & Inspection: normal respiratory effort Cardio: Rate: regular rate GI: Palpation (GI): Soft to palpation, not firm, nontender and no guarding Objective Data Active Medications Acetaminophen (Acetaminophen 325 Mg Tablet) 975 mg PO Q6H PRN PRN Reason: Pain, Mild 1-3,fever,headache Last Admin: 04/09/24 09:47 Dose: 975 mg Documented By: DAVIS Aripiprazole (Aripiprazole 5 Mg Tablet) 5 mg PO DAILY [facility] Last Admin: 04/09/24 09:48 Dose: 5 mg Documented By: DAVIS Calcium Carbonate (Calcium Carbonate 750 Mg Tab.Chew) 750 mg PO Q4H PRN PRN Reason: Heartburn Clonidine HCl (Clonidine Hcl 0.1 Mg Tablet) 0.1 mg PO BEDTIME PRN; Protocol PRN Reason: Anxiety Enoxaparin Sodium (Enoxaparin Sodium 40 Mg/0.4 Ml Syringe) 40 mg SUBCUT Q24H [facility] Last Admin: 04/08/24 23:50 Dose: 40 mg Documented By: LIA Escitalopram Oxalate (Escitalopram Oxalate 10 Mg Tablet) 10 mg PO DAILY [facility] Last Admin: 04/09/24 09:49 Dose: 10 mg Documented By: DAVIS Escitalopram Oxalate (Escitalopram Oxalate 20 Mg Tablet) 20 mg PO DAILY@1500 ERIC Gabapentin (Gabapentin 400 Mg Capsule) 800 mg PO TID [facility] Last Admin: 04/09/24 09:49 Dose: 800 mg Documented By: DAVIS Metronidazole (Flagyl) 500 mg in 100 mls @ 100 mls/hr IV Q8H [facility] Last Infusion: 04/09/24 10:50 Dose: Infused Documented By: HO.PARADIM Levofloxacin (Levaquin) 750 mg in 150 mls @ 100 mls/hr IV Q24H [facility] Last Infusion: 04/09/24 02:50 Dose: Infused Documented By: LIA Lamotrigine (Lamotrigine 25 Mg Tablet) 50 mg PO TID [facility] Last Admin: 04/09/24 09:49 Dose: 50 mg Documented By: DAVIS Lorazepam (Lorazepam 0.5 Mg Tablet) 0.5 mg PO BID PRN PRN Reason: Anxiety Magnesium Hydroxide (Milk Of Magnesia 30 Ml Oral.Susp) 30 ml PO DAILY PRN PRN Reason: Constipation Melatonin (Melatonin 3 Mg Tablet) 6 mg PO BEDTIME PRN PRN Reason: Insomnia Ondansetron HCl (Ondansetron Hcl 4 Mg/2 Ml Vial) 4 mg IVPUSH Q8H PRN PRN Reason: Nausea and Vomiting Prazosin HCl (Prazosin Hcl 5 Mg Capsule) 5 mg PO BEDTIME [facility]; Protocol Last Admin: 04/08/24 23:54 Dose: 5 mg Documented By: LIA Quetiapine Fumarate (Quetiapine Fumarate 100 Mg Tablet) 200 mg PO BEDTIME [facility] Quetiapine Fumarate (Quetiapine Fumarate 25 Mg Tablet) 50 mg PO DAILY [facility] Last Admin: 04/09/24 11:17 Dose: 50 mg Documented By: DAVIS Sodium Chloride (0.9 % Sodium Chloride Flush 3 Ml Syringe) 3 ml IVFLUSH QSHIFT [facility] Last Admin: 04/09/24 09:50 Dose: 3 ml Documented By: DAVIS Labs 04/09/24 06:36 04/09/24 06:36 Labs: Laboratory Results - last 24 hr 04/08/24 04/08/24 04/08/24 11:27 16:32 16:51 MCV 84.9 MCH 28.8 MCHC 34.0 RDW 13.3 Plt Count 396 MPV 9.2 L Immature Gran % (Auto) 0.1 Neut % (Auto) 62.3 Lymph % (Auto) 25.4 [place] % (Auto) 10.4 Eos % (Auto) 1.3 Baso % (Auto) 0.5 Lymph # (Auto) 2.1 [place] # (Auto) 0.9 Eos # (Auto) 0.1 Baso # (Auto) 0.0 Abs Immat Gran (auto) 0.01 Absolute Neuts (auto) 5.2 Absolute Nucleated RBC 0.000 Nucleated RBC % (auto) 0.0 Anion Gap 12 Estim Creat Clear Calc 103.3 Estimated GFR > 60 Random Glucose 92 Lactic Acid 0.8 Calcium 9.4 Magnesium 2.0 Total Bilirubin 0.8 AST 17 ALT 17 Alkaline Phosphatase 53 Total Protein 7.4 Albumin 4.2 Beta HCG, Quant < 2 Urine Color Yellow Urine Appearance Clear Urine pH 6.5 Ur Specific [place] 1.025 Urine Protein Trace Urine Glucose (UA) Negative Urine Ketones 40 Urine Blood Moderate (2+) H Urine Nitrite Negative Ur Leukocyte Esterase Negative Urine RBC 3-5 H Urine WBC 0-5 Ur Squamous Epith Cells 11-20 Urine Bacteria 4+ Hyaline Casts 0-2 Influenza Type A (PCR) NEGATIVE Influenza Type B (PCR) NEGATIVE RSV RNA Qual (PCR) NEGATIVE SARS-CoV-2 RNA (RT-PCR) NEGATIVE 04/09/24 06:36 MCV 85.7 MCH 28.6 MCHC 33.4 RDW 13.2 Plt Count 346 MPV 9.4 Immature Gran % (Auto) 0.1 Neut % (Auto) 54.4 Lymph % (Auto) 31.8 [place] % (Auto) 10.8 Eos % (Auto) 2.3 Baso % (Auto) 0.6 Lymph # (Auto) 2.2 [place] # (Auto) 0.7 Eos # (Auto) 0.2 Baso # (Auto) 0.0 Abs Immat Gran (auto) 0.01 Absolute Neuts (auto) 3.7 Absolute Nucleated RBC 0.000 Nucleated RBC % (auto) 0.0 Anion Gap 10 L Estim Creat Clear Calc 122.6 Estimated GFR > 60 Random Glucose 94 Lactic Acid Calcium 8.4 D Magnesium Total Bilirubin AST ALT Alkaline Phosphatase Total Protein Albumin Beta HCG, Quant Urine Color Urine Appearance Urine pH Ur Specific [place] Urine Protein Urine Glucose (UA) Urine Ketones Urine Blood Urine Nitrite Ur Leukocyte Esterase Urine RBC Urine WBC Ur Squamous Epith Cells Urine Bacteria Hyaline Casts Influenza Type A (PCR) Influenza Type B (PCR) RSV RNA Qual (PCR) SARS-CoV-2 RNA (RT-PCR) Procedures Date of Service Date of Service: 04/09/24 Progress Note: A&P Assessment and plan (1) Colitis: Status: Acute Assessment and Plan: Symptoms have resolved Denies any pain or diarrhea now Abdomen is soft and benign She is hungry and wants to eat Okay to have regular food Okay to be discharged from surgical standpoint Time Spent With Patient Time: Total time managing care of this patient today ____ minutes. Quality Stroke Does the patient have a stroke diagnosis?: No VTE Prior VTE?: No VTE Risk Level:: Medical - moderate - high VTE Device Contraindication: Treatment Not Indicated VTE Drug Contraindication: N/A - Med Ordered
--- NOTE | 2024-04-09 11:30 | PC.NURSE ---
pt seen by MD Hightower at bedside- per MD advance to regular diet. diet order updated.
--- NOTE | 2024-04-09 14:16 | PC.NURSE ---
spoke with elbert in dietary- advised clear liquid tray set for pt when regular diet should have been sent
[2024-04-09] MEDS: Escitalopram Oxalate 20 MG TABLET PO (14:42)
--- NOTE | 2024-04-09 14:54 | PC.NURSE ---
pt c/o 09/24 headache pain- MD notified via [employer] [facility]
[2024-04-09] MEDS: Butalb/Acetamin/Caff 50/325/40 TABLET 1 TAB PO (15:06)
--- NOTE | 2024-04-09 15:09 | PC.NURSE ---
pt medicated w/ Fioricet for 8/ headache pain. at present pt is eating- no other complaints at this time
[2024-04-09 19:51] VITALS: BP 119/74; PULSE 87; RESP 16; TEMP 36.6; O2SAT 98
[2024-04-09] MEDS: Enoxaparin Sodium 40 MG/0.4 ML SYRINGE SUBCUT (21:33)
[2024-04-09] MEDS: QUEtiapine Fumarate 100 MG TABLET 200 MG PO (21:33)
[2024-04-09 22:26] VITALS: BP 108/62
[2024-04-09] MEDS: Prazosin HCL 5 MG CAPSULE PO (22:26)
[2024-04-09] MEDS: levoFLOXacin/D5W 750 MG/150 ML PIGGYBACK 150 MG IV (23:52)
[2024-04-10] MEDS: ondansetron HCL 4 MG/2 ML VIAL IVPUSH (00:51)
[2024-04-10] MEDS: Butalb/Acetamin/Caff 50/325/40 TABLET 1 TAB PO ×2 (00:51→10:34)
[2024-04-10 05:48] LABS: MANUAL DIFF FLAG NO
[2024-04-10 05:51] LABS: Basophils Percent Auto 0.6 % (0-2); Eosinophils Absolute Auto 0.2 X10*3/uL (0.0-0.4); Eosinophils Percent Auto 2.2 % (0-4); Hematocrit 32.5 % (37.0-47.0); Hemoglobin 10.9 g/dl (12.0-16.0); Imm Gran Abs Auto 0.03 X10*3/uL (0.00-0.03); Imm Gran Pct Auto 0.4 % (0.0-0.4); Lymphocytes Absolute Auto 2.2 X10*3/uL (1.2-4.9); Lymphocytes Percent Auto 32.6 % (20-40); Mean Corpuscular HGB Conc 33.5 g/dl (31.0-35.0); Mean Corpuscular Volume 83.5 fL (80.0-98.0); Mean Platelet Volume 9.2 fL (9.4-12.3); Monocytes Absolute Auto 0.7 X10*3/uL (0.1-1.2); Monocytes Percent Auto 10.8 % (2-11); Neutrophils Absolute Auto 3.7 x10*3/uL (2.0-8.3); Neutrophils Percent Auto 53.4 % (45-73); Platelet Count 331 X10*3/uL (160-400); Red Blood Count 3.89 X10*6/uL (4.20-5.50); Red Cell Distribution Width 13.3 % (11.0-16.0); White Blood Count 6.9 X10*3/uL (4.8-10.8)
[2024-04-10 06:15] LABS: Anion Gap 12 (12-20); Blood Urea Nitrogen 9 mg/dL (9-16); C Reactive Protein < 0.10 mg/dL (< or = 0.50); Calcium 8.7 mg/dL (8.4-10.2); Carbon Dioxide 23 mmol/L (22-29); Chloride 110 mmol/L (96-108); Creatinine Clr Calc Pharmacy 100.5; Estimated Glomerular Filt Rate > 60; Glucose Random 100 mg/dL (60-115); Potassium 3.9 mmol/L (3.3-5.1); Sodium 141 mmol/L (135-145)
[2024-04-10 06:35] VITALS: BP 115/68; PULSE 80; RESP 18; TEMP 36.7; O2SAT 99
[2024-04-10] MEDS: metroNIDAZOLE/NS 500 MG/100 ML PIGGYBACK 100 MG IV (07:31)
[2024-04-10 09:08] VITALS: BP 108/65; PULSE 68; RESP 16; TEMP 36.6; O2SAT 98
[2024-04-10] MEDS: Gabapentin 400 MG CAPSULE 800 MG PO (09:12)
[2024-04-10] MEDS: lamoTRIgine 25 MG TABLET 50 MG PO (09:12)
[2024-04-10] MEDS: Escitalopram Oxalate 10 MG TABLET PO (09:12)
[2024-04-10] MEDS: ARIPiprazole 5 MG TABLET PO (09:12)
[2024-04-10] MEDS: QUEtiapine Fumarate 25 MG TABLET 50 MG PO (09:13)
[2024-04-10 11:17] VITALS: BP 138/82; PULSE 72; RESP 16; TEMP 36.6; O2SAT 98
[2024-04-10] MEDS: LORazepam 0.5 MG TABLET PO (11:18)
[2024-04-10 11:20] VITALS: BMI 34.3
--- NOTE | 2024-04-10 11:50 | PM.DS ---
DS: Providers Provider Date of Service: 04/10/24 Date of admission: 04/08/24 21:58 Date of discharge: 04/10/24 Primary care physician: Unknown Physician Consults: 04/08/24 22:00 Consult to Gastroenterology Routine Consulting Provider: Theresa Ramos Reason for consultation: colitis Has provider been notified: No 04/09/24 10:25 Consult to General Surgery Routine Consulting Provider: [facility] [place] [facility] Reason for consultation: Abd pain /colitisn Has provider been notified: Yes Attending physician on discharge: Gunnar Perez Discharging clinician: Gunnar Perez DS: Diagnosis Discharge Diagnosis (1) Colitis: Status: Acute (2) Diarrhea: Status: Acute DS: Summary Hospital Course Hospital Course: HPI:38-year-old female with a past medical history significant for mood disorder, who presented to the ED due to diarrhea, abdominal pain and vomiting x1 week. She reports the vomiting started today. Her daughter had similar symptoms beginning around the same time it only lasted about 3 days with less severe diarrhea or abdominal pain. He denies any fever or chills. No recent antibiotics or travel. She describes abdominal cramping and burning generalized but worse in the left lower quadrant. She denies any hematochezia or hematemesis. Her last episode of diarrhea was yesterday. She also reports some urinary frequency recently which has improved slightly today. She has been unable to tolerate much by mouth but was able to tolerate the clear liquid diet and would like to advance her diet slightly. Hospital course: Patient came to the hospital complaining of nausea vomiting diarrhea abdominal pain: No leukocytosis, CT abdomen showed possible colitis(please see detailed report in imaging section), CRP is less than 0.1: Seen by GI and surgery recommended bowel rest, IV fluids, IV antibiotics, UA was sent shows asymptomatic bacteriuria, urine culture negative. With above supportive care patient seems to be improved significantly, tolerating diet. Discussed with GI and surgery patient will be going home with p.o. antibiotics, also patient will follow-up with GI service outpatient for possible colonoscopy. patient has migrane hx and also her mother has migrane -requested fioricet limited supply given. follow up with pcp. plan: complete levaquin 500 mg qdx5 days and flagyl 500 mg po bid. follow up with GI outpatient for colonoscopy. follow up outpatient. Above management discussed with the patient in detail length she understand and in agreement with the above plan, time spent 40 minute. Time Attestation Total time managing care of this patient today: 40 mintues. Discharge Coordination Time (in mins): 40min Quality: Safe Use of Opioids Does Pt have an Active Cancer Diagnosis on the Problem List?: No Quality: Stroke Does the patient have a stroke diagnosis?: No Physical Exam Vital Signs: Vital Signs: Last Vital Signs Temp 98 F 04/10/24 11:17 Pulse 72 04/10/24 11:17 Resp 16 04/10/24 11:17 BP 138/82 04/10/24 11:17 Pulse Ox 98 04/10/24 11:17 O2 Del Method Room Air 04/10/24 11:17 BMI result Body Mass Index 34.3 General: AOx3, no acute distress Resp: CTA bilaterally CVS: S1, S2, RRR GI: +BS, soft, no guarding, no distention Skin: Warm, dry, no edema Neuro:moves all ext DS: Data Data Completed and Pending Labs on day of discharge: Laboratory Results - last 24 hr 04/10/24 05:22 WBC 6.9 RBC 3.89 L Hgb 10.9 L Hct 32.5 L MCV 83.5 MCH 28.0 MCHC 33.5 RDW 13.3 Plt Count 331 MPV 9.2 L Immature Gran % (Auto) 0.4 Neut % (Auto) 53.4 Lymph % (Auto) 32.6 [place] % (Auto) 10.8 Eos % (Auto) 2.2 Baso % (Auto) 0.6 Lymph # (Auto) 2.2 [place] # (Auto) 0.7 Eos # (Auto) 0.2 Baso # (Auto) 0.0 Abs Immat Gran (auto) 0.03 Absolute Neuts (auto) 3.7 Absolute Nucleated RBC 0.000 Nucleated RBC % (auto) 0.0 Sodium 141 Potassium 3.9 Chloride 110 H Carbon Dioxide 23 Anion Gap 12 BUN 9 Creatinine 0.72 Estim Creat Clear Calc 100.5 Estimated GFR > 60 Random Glucose 100 Calcium 8.7 C-Reactive Protein < 0.10 Additional Comments Additional comments: ct abd:IMPRESSION: 1. Colonic thickening, consistent with ischemia, infection, versus inflammation. Follow-up colonoscopy is recommended to exclude underlying neoplasm. 2. Trace right pleural effusion. Discharge Plan Discharge Anticipated Discharge Date/Time: 04/10/24 11:33 Patient Disposition: Home, Self-Care Discharge Diagnosis: colitis Referrals: Theresa Ramos MD [Physician] - 2 Weeks Physician,Luna J [Primary Care Provider] - 1 Week Discharge Medications: New levofloxacin 500 mg tablet 500 mg PO DAILY Qty: 5 0RF metronidazole 500 mg tablet 500 mg PO Q8H 5 Days Qty: 10 0RF [id number]-bvqycdxbszugr-bpzb 50-325-40 mg Tablet 1 tab PO Q4H PRN (Reason: Headache) Qty: 10 0RF docusate sodium [Colace] 100 mg capsule 100 mg PO BID PRN (Reason: constipation) Qty: 20 0RF Continued clonidine HCl 0.1 mg tablet 0.1 mg PO BEDTIME PRN (Reason: Anxiety) gabapentin 400 mg capsule 800 mg PO TID lamotrigine 25 mg tablet 50 mg PO TID prazosin 5 mg capsule 5 mg PO BEDTIME lorazepam 0.5 mg tablet 0.5 mg PO BID PRN (Reason: Anxiety) escitalopram oxalate 10 mg tablet 10 mg PO DAILY escitalopram oxalate 20 mg tablet 20 mg PO DAILY@1500 aripiprazole 5 mg tablet 5 mg PO DAILY quetiapine 200 mg tablet extended release 24 hr 200 mg PO BEDTIME quetiapine 50 mg tablet extended release 24 hr 50 mg PO DAILY Discharge Orders: Discharge Order (Routine); Ordered 04/10/24 Ordered By: Gunnar Perez Diet: Advance to usual diet Activity on Discharge: As tolerated Stand Alone Forms: Patient Portal Discharge page Print Language: Kazakh Care Plan Goals: Patient came to the hospital complaining of nausea vomiting diarrhea abdominal pain: No leukocytosis, CT abdomen showed possible colitis, CRP is less than 0.1: Seen by GI and surgery recommended bowel rest, IV fluids, IV antibiotics, UA was sent shows asymptomatic bacteriuria, urine culture negative. With above supportive care patient seems to be improved significantly, tolerating diet. Discussed with GI and surgery patient will be going home with p.o. antibiotics, also patient will follow-up with GI service outpatient for possible colonoscopy. patient has migrane hx -requested fioricet limited supply given. follow up with pcp. Health Concerns: as above. Plan of Treatment: complete levaquin 500 mg qdx5 days and flagyl 500 mg po bidx5 days. follow up with GI outpatient for colonoscopy. follow up outpatient Assessment: as above.
--- NOTE | 2024-04-10 12:43 | MHC.CM.PN ---
Patient is discharged to home today self care. She has arranged for transportation home.
[2024-04-10] MEDS: Milk of Magnesia 30 ML ORAL.SUSP PO (13:58)
[2024-04-10 15:38] VITALS: BP 133/71; PULSE 79; RESP 18; TEMP 36.6; O2SAT 97
== END 2024-04-10 15:40 | disposition home or self-care (01) | DRG 392 ==
LOC: HO.ED 18:57 → HO.EDOVER 22:10 → HO.S3 04-10 07:51
PROVIDERS: Physician Assistant Medical; Admitting Provider Physician Assistant; Emergency Provider Emergency Medicine; Visit Provider Internal Medicine
DX: A05.9 Bacterial foodborne intoxication, unspecified (principal); K55.9 Vascular disorder of intestine, unspecified; E66.9 Obesity, unspecified; Z68.32 Body mass index [BMI] 32.0-32.9, adult; Z71.3 Dietary counseling and surveillance; F39 Unspecified mood [affective] disorder; E86.0 Dehydration; Z20.822 Contact with and (suspected) exposure to COVID-19; Z79.899 Other long term (current) drug therapy
CPT/HCPCS: 0241U; 36415; 74177; 80048; 80053; 81001; 81003; 83605; 83735; 84702; 85025; 86140; 87086; 93005; 99285; J1200; J1650; J1836; J1885; J1956; J2405; J2543; J2765; Q9967

== ENCOUNTER → 2024-04-08 14:30 | Outpatient (BNV) | payer OTHER, MEDICARE, MEDICAID, SELFPAY | PROVIDERS: Emergency Provider Emergency Medicine; Visit Provider Radiology Diagnostic Radiology | DX: R10.31 Right lower quadrant pain (principal); K63.89 Other specified diseases of intestine | CPT/HCPCS: 74177 ==

== ENCOUNTER → 2024-04-08 16:00 | Outpatient (BNV) | payer OTHER, MEDICARE, MEDICAID, SELFPAY | PROVIDERS: Admitting Provider Physician Assistant; Emergency Provider Emergency Medicine; Visit Provider Internal Medicine | DX: R53.1 Weakness (principal) | CPT/HCPCS: 93010 ==

== ENCOUNTER → 2024-04-08 21:58 | Outpatient (BNV) | payer OTHER, MEDICARE, MEDICAID, SELFPAY | PROVIDERS: Admitting Provider Physician Assistant; Emergency Provider Emergency Medicine; Visit Provider Internal Medicine Gastroenterology | DX: K52.9 Noninfective gastroenteritis and colitis, unspecified (principal) | CPT/HCPCS: 99222 ==

== ENCOUNTER → 2024-04-08 21:58 | Outpatient (BNV) | payer OTHER, MEDICARE, MEDICAID, SELFPAY | PROVIDERS: Admitting Provider Physician Assistant; Emergency Provider Emergency Medicine; Visit Provider Internal Medicine | DX: K52.9 Noninfective gastroenteritis and colitis, unspecified (principal) | CPT/HCPCS: 99232; 99239 ==

== ENCOUNTER → 2024-04-08 21:58 | Outpatient (BNV) | payer OTHER, MEDICARE, MEDICAID, SELFPAY | PROVIDERS: Admitting Provider Physician Assistant; Emergency Provider Emergency Medicine; Visit Provider Surgery | DX: K52.9 Noninfective gastroenteritis and colitis, unspecified (principal) | CPT/HCPCS: 99222; 99232 ==

== ENCOUNTER 2024-04-11 14:51 | Inpatient (IN) | payer MEDICARE, MEDICAID, SELFPAY ==
--- NOTE | ~2024-04-11 | US_ITS ---
CLINICAL HISTORY: Elevated LFTs; RUQ US abdomen limited Comparison: CT/SR - CT ABDOMEN PELVIS W IV CON - 04/11/24 21:[address]/SR - CT ABDOMEN PELVIS W IV CON - 04/08/24 14:41 EST Findings: The visualized pancreas is normal. The aorta and inferior vena cava are normal caliber. The liver is normal in size and echotexture. Posterior to the right lobe there is a simple thin-walled cystic lesion 3.2 x 1.8 x 1.9 cm. Corresponds with the lesion seen on CT. There is no intrahepatic bile duct dilatation. The common duct is 3 mm in diameter. The gallbladder is normal. There is no sonographic Franklin sign. The main portal vein is antegrade. Normal right kidney 11 cm. No ascites. IMPRESSION: 1. Simple cyst posterior to the right liver, similar to appearance on prior CTs. Etiology indeterminate. 2. Otherwise unremarkable right upper quadrant ultrasound. This document has been electronically signed by: Jas Haskins MD on 04/11/2024 23:14:16
--- NOTE | ~2024-04-11 | NM_ITS ---
EXAMINATION: NM LUNG PERFUSION HISTORY: chest pain, hypoxia. TECHNIQUE: A pulmonary perfusion scan was performed following intravenous and demonstration of 4.0 mCi technetium 99m-MAA. The patient was imaged in multiple projections. COMPARISON: Correlation is made with an AP portable view of the chest performed earlier in the day. FINDINGS: No segmental or subsegmental perfusion defects are identified. Minimal patchy decreased activity is seen posteriorly on the LPO view, likely related to the patient's arm. Findings are consistent with a very low probability for pulmonary emboli. NM/NM pul perfusion IMPRESSION: Very low probability for pulmonary emboli. Electronically signed by: Aftab Garner MD 04/12/2024 09:40 AM [facility]
--- NOTE | ~2024-04-11 | XR_ITS ---
CLINICAL HISTORY: sob 1 view chest x-ray Comparison: None Findings: Ill-defined opacity left lung base. Low lung volumes. No pleural effusion. Heart size is normal. No acute fracture. IMPRESSION: Ill-defined left medial lung base opacity. This could be atelectasis or early consolidation. This document has been electronically signed by: Jas Haskins MD on 04/12/2024 02:12:48
--- NOTE | ~2024-04-11 | CT_ITS ---
CLINICAL HISTORY: ams - new onset unresponsiveness PT INJECTED 04/11/24 @ 2105H, DR HARRIS AWARE AND STILL WANTED SCAN CT Head without contrast. CT angiography head and neck with contrast. 3D Postprocessing. Comparison: None Findings: HEAD CT: No intra-axial mass, midline shift, hydrocephalus, or acute hemorrhage. No significant atrophy-like change or white matter disease. The visualized paranasal sinuses and mastoid air cells are normal. The orbits are within normal limits. No skull fracture. HEAD AND NECK CTA: Aortic arch and cervical great vessels are patent. Intracranial arteries are patent. No aneurysm, dissection, or occlusion. No abnormal intracranial enhancement. The visualized thyroid gland is unremarkable. No cervical mass or fluid collection. Minor dependent atelectasis in the upper lungs. No acute fracture. IMPRESSION: 1. Unremarkable head CT. 2. Patent head and neck CTA. This document has been electronically signed by: Jas Haskins MD on 04/12/2024 02:40:52
--- NOTE | ~2024-04-11 | CT_ITS ---
CLINICAL HISTORY: abd pain CT abdomen and pelvis with contrast Comparison: CT of the abdomen and pelvis from 04/08/2024 Findings: Mild bibasilar atelectasis. Imaged solid abdominal organs are unchanged. Fluid and dorsal margin of the right lobe of the liver measures 2 cm (previously 2 cm). Differential considerations include small neuro-enteric cyst. Small abscess considered less likely, as there is no adjacent inflammatory stranding at this time. Gallbladder is unremarkable for CT. Small mesenteric lymph nodes may be reactive. No small bowel obstruction. Severe stool burden is present, including the cecum. The appendix is within normal limits. Urinary bladder is mildly distended. Uterus is anteverted. No adnexal soft tissue mass. Mild free fluid in the pelvis is likely physiologic. Degenerative changes include mild lower lumbar facet arthropathy. IMPRESSION: 1. No significant change in 2 cm focus of fluid dorsal to the right lobe of the liver. 2. Severe stool burden no small bowel obstruction. 3. No CT findings of acute appendicitis. This document has been electronically signed by: Eitan Harrell MD on 04/11/2024 21:56:21
[2024-04-11 15:16] VITALS: BP 134/89; PULSE 82; RESP 16; TEMP 36.4; O2SAT 98; BMI 33.2
--- NOTE | 2024-04-11 15:18 | ED.GENADULT ---
HPI - General Adult General Chief complaint: Urogenital-Female Stated complaint: unable to urinate Time Seen by Provider: 04/11/24 20:00 Related Data Home Medications ?Medication ?Instructions ?Recorded ?Confirmed aripiprazole 5 mg tablet 5 mg PO DAILY 04/08/24 04/12/24 clonidine HCl 0.1 mg tablet 0.1 mg PO BEDTIME PRN Anxiety 04/08/24 04/12/24 escitalopram oxalate 10 mg tablet 10 mg PO DAILY 04/08/24 04/12/24 escitalopram oxalate 20 mg tablet 20 mg PO DAILY@1500 04/08/24 04/12/24 gabapentin 400 mg capsule 800 mg PO TID 04/08/24 04/12/24 lamotrigine 25 mg tablet 50 mg PO TID 04/08/24 04/12/24 lorazepam 0.5 mg tablet 0.5 mg PO BID PRN Anxiety 04/08/24 04/12/24 prazosin 5 mg capsule 5 mg PO BEDTIME 04/08/24 04/12/24 quetiapine 200 mg tablet,extended 200 mg PO BEDTIME 04/08/24 04/12/24 release 24 hr quetiapine 50 mg tablet,extended 50 mg PO DAILY 04/08/24 04/12/24 release 24 hr Previous Rx's ?Medication ?Instructions ?Recorded [id number] 1 tab PO Q4H PRN Headache #10 tabs 04/10/24 50 mg-325 mg-40 mg tablet docusate sodium 100 mg capsule 100 mg PO BID PRN constipation #20 04/10/24 (Colace) caps levofloxacin 500 mg tablet 500 mg PO DAILY #5 tabs 04/10/24 metronidazole 500 mg tablet 500 mg PO Q8H 5 days #10 tabs 04/10/24 Allergies Allergy/AdvReac Type Severity Reaction Status Date / Time latex [LATEX] Allergy Mild Hives Verified 04/11/24 15:19 [facility] Past Medical History Medical History Obesity (BMI 30.0-34.9) Diarrhea Hx of ectopic Depression Bipolar disorder Epigastric hernia Surgical History Hx of tubal ligation History of loop electrical excision procedure (LEEP) Hx of laparoscopy History of Social History Social History Household Members: Family Housing: Apartment Are you a primary healthcare educator to a significant other at home: Yes (children-one is still a minor-18 year old will care for child day of surg.) Do you presently have visiting nurse or other home services: No Alcohol intake: former Patient Tobacco Use Status: Never used Tobacco Tobacco use type: Cigarette Cigarettes Per Day: 5 Years Smoked: 12 Smoked in Last 30 Days: No Patient Interested in Nicotine Replacement: No Patient Given Instructions on How to Stop Smoking: No Second Hand Smoke Exposure: No Use of substances other than those prescribed or required for medical reasons: No Currently Displaying Signs/Symptoms of Drug Intoxication Withdrawal: No Any prior treatment program specific to substance use: No Have you been hit, kicked, punched, or otherwise hurt by someone within the past year? If so, by whom?: No Do you feel safe in your current relationship?: No Current Relationship Is there a partner from a previous relationship who is making you feel unsafe now?: No Are you made to feel afraid or neglected: No Spiritual Healthcare Practices: Synagogue Advance Directives: No Advance Directives Information Provided: No Do you have a plan to hurt others: No Plan Recently lost weight without trying: Unsure How much weight loss: Unsure Nutrition Risks: No Nutritional Risk Patient : No : No Poor oral hygiene: No service: No Physical Exam ED Vital Signs: Vital Signs - 24 hr 04/11/24 20:02 04/11/24 21:22 04/11/24 23:25 Temperature 97.8 F 98.2 F 97.7 F Pulse Rate 66 66 70 Respiratory Rate 16 16 16 Blood Pressure 119/73 145/87 H 114/71 Pulse Oximetry 96 96 98 Oxygen Delivery Method Room Air Room Air Room Air 04/12/24 01:08 04/12/24 01:31 04/12/24 04:34 Temperature 97.8 F 98.5 F Pulse Rate 95 88 61 Respiratory Rate 16 12 Blood Pressure 140/87 H 186/92 H 98/55 L Pulse Oximetry 100 99 97 Oxygen Delivery Method Room Air Room Air Room Air 04/12/24 05:52 Temperature 98.6 F Pulse Rate 69 Respiratory Rate 13 Blood Pressure 111/75 Pulse Oximetry 100 Oxygen Delivery Method Room Air BMI result Body Mass Index 33.2 Course Course Course Narrative: This is a rapid medical exam performed by Luke White NP: Additional HPI, ROS, PE not included below will be deferred to primary provider. Patient is a 38-year-old female presenting with complaint that she is unable to urinate since yesterday. Had an episode of diarrhea yesterday. Also complains of lower abdominal pain. Was recently admitted for colitis and discharged yesterday. Drinking gatorade at home. Plan: labs, bladder scan, UA Medications Administered Generic Name Dose Route Start Last Admin Trade Name Freq PRN Reason Stop Dose Admin Hydromorphone HCl 0.5 mg 04/12/24 08:17 04/12/24 08:24 Hydromorphone Hcl 0.5 Mg/0.5 Ml Syringe IVPUSH 0.5 mg Q3H PRN Administration Pain, Severe (Pain Scale 7-10) Protocol Dextrose/Sodium Chloride 1,000 mls @ 100 mls/hr 04/12/24 16:30 04/12/24 17:06 D5ns IVCONT 100 mls/hr .Q10H ERIC Administration Ondansetron HCl 4 mg 04/12/24 06:35 04/12/24 13:16 Ondansetron Hcl 4 Mg/2 Ml Vial IVPUSH 4 mg Q8H PRN Administration Nausea and Vomiting Sodium Chloride 3 ml 04/12/24 08:00 04/12/24 17:07 0.9 % Sodium Chloride Flush 3 Ml Syringe IVFLUSH 3 ml QSHIFT ERIC Administration Discontinued Medications Generic Name Dose Route Start Last Admin Trade Name Freq PRN Reason Stop Dose Admin Bisacodyl 10 mg 04/12/24 06:49 04/12/24 08:03 Bisacodyl 5 Mg Tablet.Dr PO 04/12/24 06:50 10 mg ONCE ONE Administration Docusate Sodium 100 mg 04/11/24 22:11 04/11/24 23:11 Docusate Sodium 100 Mg Capsule PO 04/11/24 22:12 100 mg ONCE ONE Administration Enoxaparin Sodium 80 mg 04/12/24 04:39 04/12/24 05:44 Enoxaparin Sodium 80 Mg/0.8 Ml Syringe SUBCUT 04/12/24 04:40 80 mg ONCE ONE Administration Sodium Chloride 1,000 mls @ 999 mls/hr 04/12/24 01:15 04/12/24 03:08 Ns IV 04/12/24 02:15 Infused .Q1H1M ERIC Infusion Iohexol 85 ml 04/11/24 21:09 04/11/24 21:10 Iohexol 350 Mg/Ml 100 Ml Infus..Btl IV 04/11/24 21:10 85 ml ONCE ONE Administration Lactulose 20 gm 04/11/24 22:11 04/11/24 23:11 Lactulose 20 Gm/30 Ml Solution PO 04/11/24 22:12 20 gm ONCE ONE Administration Mineral Oil 133 ml 04/11/24 22:12 04/11/24 23:12 Mineral Oil Enema 133 Ml Enema HI 04/11/24 22:13 133 ml ONCE ONE Administration Morphine Sulfate 2 mg 04/11/24 20:22 04/11/24 21:20 Morphine Sulfate 2 Mg/Ml Cartridge IVPUSH 04/11/24 20:23 2 mg ONCE ONE Administration Protocol Ondansetron HCl 4 mg 04/12/24 00:39 04/12/24 03:07 Ondansetron Hcl 4 Mg/2 Ml Vial IVPUSH 04/12/24 00:40 Not Given ONCE ONE Polyethylene Glycol/Electrolytes 4,000 ml 04/12/24 16:00 04/12/24 18:04 Peg 3350/Na Sulf,Bicarb,Cl/Kcl 4,000 Ml Soln.Recon PO 04/12/24 16:01 4,000 ml ONCE ONE Administration Medical Decision Making Medical Decision Making MDM Narrative: 38-year-old female presents for abdominal pain - I am concerned following; pancreatitis, gastritis, gastroenteritis, hernia, UTI, biliary disease - labs, analgesics and imaging studies ordered Lab and imaging interpretation: - No white count, stable H&H, electrolytes within normal limits, elevated LFTs - I reviewed CT and noted constipation that is being read by radioology as severe stool burden - I did not appreciate any signs of cholecystitis on US; Radilogy is readin it as Simple cyst posterior to the right liver, similar to appearance on prior CTs. Etiology indeterminate - UA pending ...... Lactulose, docusate and enema ordered During her recent admission patient was receiving tylenol around the clock and she was discharged on fiorcet. This could be the cause of her elevetaed LFTas. I instructed her to discontinue the fiorcet and refrain from taking Tylenol. I told her she needs to have repeat lab work in 48 hours. On reassessment pt's pain has improved however she has not yet had a bowel movement 1am pt endorsing chest pain to nurse; ekg w/o signs of ischemia; negative trop Shortly after pt became unreponsive and mildy hypoxic; considered obtaining CTA pe however bedside echo unremarkable; CT angio head and neck obtaned Rpt labs sent Signed out to night attending 04/12/2024 Dr. Micah Ayala's note: 04:38 I assumed care of this patient from my colleague, Dr. Segura at 02:00 hours. 38-year-old female with a past medical history significant for mood disorder admitted 04/08/2024 until 04/10/2024 for colitis, seen by GI and recommended bowel rest and antibiotics. Patient was discharged on levofloxacin and metronidazole. Patient presents emergency department for evaluation of difficulty urinating, abdominal pain and rectal pain. Initially seen by Dr. Chiang. Initially her pain was treated with morphine and Zofran. CT abdomen pelvis with IV contrast revealed stool burden with no small bowel obstruction no colitis. Right upper quadrant ultrasound was negative. Patient was treated with lactulose, ducosate, mineral oil fleets enema, with no bowel movement. At 01:00 hours the patient developed chest pain, EKG was negative troponin was negative. Patient then became hypoxic and had a syncopal episode. She had a brief episode of hypoxia with O2 sat an 80% but then seemed to improve. Bedside ultrasound was negative. CT angiogram head and neck was negative. I added a D-dimer and this was elevated at 3476. At this time,I am concerned that she may have had a PE therefore I ordered Lovenox 1 milligram/kilogram subQ. since she had to CT scans with IV contrast a CT pulmonary angiogram could not be done at this time. I did discuss admission with the covering hospitalist, Dr. Rueda and the patient will be admitted for further treatment. Admission/Observation Consideration of admission/observation: Escalation of care including admission/observation considered ( Yes) Consult Healthcare Provider Management of the patient was discussed with: Hospitalist (Dr. Rueda) Lab Data MDM Lab Attestation statement: I reviewed the patient's lab results. 04/12/24 05:52 04/12/24 02:03 Labs: Lab Results 04/11/24 04/11/24 04/12/24 Range/Units 15:27 20:29 00:51 WBC 8.8 (4.8-10.8) X10*3/uL RBC 4.24 (4.20-5.50) X10*6/uL Hgb 12.1 (12.0-16.0) g/dl Hct 36.1 L (37.0-47.0) % MCV 85.1 (80.0-98.0) fL MCH 28.5 (27.0-33.0) pg MCHC 33.5 (31.0-35.0) g/dl RDW 13.4 (11.0-16.0) % Plt Count 350 (160-400) X10*3/uL MPV 9.3 L (9.4-12.3) fL Immature Gran % (Auto) 0.3 (0.0-0.4) % Neut % (Auto) 72.9 (45-73) % Lymph % (Auto) 14.6 L (20-40) % [place] % (Auto) 9.0 (2-11) % Eos % (Auto) 2.7 (0-4) % Baso % (Auto) 0.5 (0-2) % Lymph # (Auto) 1.3 (1.2-4.9) X10*3/uL [place] # (Auto) 0.8 (0.1-1.2) X10*3/uL Eos # (Auto) 0.2 (0.0-0.4) X10*3/uL Baso # (Auto) 0.0 (0.0-0.2) X10*3/uL Abs Immat Gran (auto) 0.03 (0.00-0.03) X10*3/uL Absolute Neuts (auto) 6.4 (2.0-8.3) x10*3/uL Absolute Nucleated RBC 0.000 (0.0-0.012) X10*3/uL Nucleated RBC % (auto) 0.0 (0.0-0.2) /100WBC PT 14.5 H (10.9-12.4) SEC INR 1.2 H (0.9-1.1) APTT (26.0-36.8) SEC D-Dimer High Sensitivty 3476 NG/ML Sodium 141 (135-145) mmol/L Potassium 3.8 (3.3-5.1) mmol/L Chloride 108 (96-108) mmol/L Carbon Dioxide 27 (22-29) mmol/L Anion Gap 10 L (12-20) BUN 9 (9-16) mg/dL Creatinine 0.76 (0.5-1.4) mg/dL Estim Creat Clear Calc 95.9 Estimated GFR > 60 Random Glucose 98 (60-115) mg/dL Lactic Acid 1.2 (0.5-2.0) mmol/L Calcium 9.3 D (8.4-10.2) mg/dL Magnesium 2.1 (1.6-2.6) mg/dL Total Bilirubin 0.5 0.4 (0.0-1.0) mg/dL Direct Bilirubin 0.2 (0.0-0.5) mg/dL AST 211 H 187 H (5-31) U/L ALT 317 H 299 H (0-31) U/L Alkaline Phosphatase 66 65 (39-117) U/L Ammonia (13-55) umol/L Total Creatine Kinase (26-140) U/L Troponin I High Sens < 2.7 (<3.5-17.0) ng/L Total Protein 7.0 6.9 (6.5-8.0) g/dL Albumin 4.1 4.0 (3.5-5.0) g/dL Lipase 12 (8-78) U/L TSH (0.32-4.0) uIU/mL Beta HCG, Quant < 2 mIU/mL Urine Color Urine Appearance Urine pH (5.0-9.0) Ur Specific Marvin (1.005-1.025) Urine Protein (Neg-Trace) mg/dL Urine Glucose (UA) (Negative) mg/dL Urine Ketones (Negative) mg/dL Urine Blood (Negative) Urine Nitrite (Negative) Ur Leukocyte Esterase (Negative) Salicylates (15-30) mg/dL Urine Opiates Screen (Not Detect) Ur Buprenorphine Scrn (Not Detect) ng/mL Ur Oxycodone Screen (Not Detect) ng/mL Urine Methadone Screen (Not Detect) ng/mL Urine Fentanyl Screen (Not Detect) Acetaminophen < 3 (<30) mcg/mL Ur Barbiturates Screen (Not Detect) Ur Phencyclidine Scrn (Not Detect) Ur Amphetamines Screen (Not Detect) U Benzodiazepines Scrn (Not Detect) Urine Cocaine Screen (Not Detect) U Marijuana (THC) Screen (Not Detect) Ethyl Alcohol mg/dL 04/12/24 04/12/24 04/12/24 Range/Units 01:16 01:37 02:03 WBC 9.0 (4.8-10.8) X10*3/uL RBC 4.46 (4.20-5.50) X10*6/uL Hgb 12.8 (12.0-16.0) g/dl Hct 37.0 (37.0-47.0) % MCV 83.0 (80.0-98.0) fL MCH 28.7 (27.0-33.0) pg MCHC 34.6 (31.0-35.0) g/dl RDW 13.4 (11.0-16.0) % Plt Count 384 (160-400) X10*3/uL MPV 9.8 (9.4-12.3) fL Immature Gran % (Auto) 0.3 (0.0-0.4) % Neut % (Auto) 53.5 (45-73) % Lymph % (Auto) 29.6 (20-40) % [place] % (Auto) 13.3 H (2-11) % Eos % (Auto) 2.9 (0-4) % Baso % (Auto) 0.4 (0-2) % Lymph # (Auto) 2.7 (1.2-4.9) X10*3/uL [place] # (Auto) 1.2 (0.1-1.2) X10*3/uL Eos # (Auto) 0.3 (0.0-0.4) X10*3/uL Baso # (Auto) 0.0 (0.0-0.2) X10*3/uL Abs Immat Gran (auto) 0.03 (0.00-0.03) X10*3/uL Absolute Neuts (auto) 4.8 (2.0-8.3) x10*3/uL Absolute Nucleated RBC 0.000 (0.0-0.012) X10*3/uL Nucleated RBC % (auto) 0.0 (0.0-0.2) /100WBC PT (10.9-12.4) SEC INR (0.9-1.1) APTT (26.0-36.8) SEC D-Dimer High Sensitivty NG/ML Sodium 141 (135-145) mmol/L Potassium 3.4 (3.3-5.1) mmol/L Chloride 108 (96-108) mmol/L Carbon Dioxide 21 L (22-29) mmol/L Anion Gap 15 (12-20) BUN 8 L (9-16) mg/dL Creatinine 0.73 (0.5-1.4) mg/dL Estim Creat Clear Calc 99.8 Estimated GFR > 60 Random Glucose 106 (60-115) mg/dL Lactic Acid (0.5-2.0) mmol/L Calcium 9.1 (8.4-10.2) mg/dL Magnesium (1.6-2.6) mg/dL Total Bilirubin (0.0-1.0) mg/dL Direct Bilirubin (0.0-0.5) mg/dL AST (5-31) U/L ALT (0-31) U/L Alkaline Phosphatase (39-117) U/L Ammonia 38 (13-55) umol/L Total Creatine Kinase 25 L (26-140) U/L Troponin I High Sens < 2.7 (<3.5-17.0) ng/L Total Protein (6.5-8.0) g/dL Albumin (3.5-5.0) g/dL Lipase (8-78) U/L TSH 6.73 H (0.32-4.0) uIU/mL Beta HCG, Quant mIU/mL Urine Color Urine Appearance Urine pH (5.0-9.0) Ur Specific Marvin (1.005-1.025) Urine Protein (Neg-Trace) mg/dL Urine Glucose (UA) (Negative) mg/dL Urine Ketones (Negative) mg/dL Urine Blood (Negative) Urine Nitrite (Negative) Ur Leukocyte Esterase (Negative) Salicylates (15-30) mg/dL Urine Opiates Screen (Not Detect) Ur Buprenorphine Scrn (Not Detect) ng/mL Ur Oxycodone Screen (Not Detect) ng/mL Urine Methadone Screen (Not Detect) ng/mL Urine Fentanyl Screen (Not Detect) Acetaminophen (<30) mcg/mL Ur Barbiturates Screen (Not Detect) Ur Phencyclidine Scrn (Not Detect) Ur Amphetamines Screen (Not Detect) U Benzodiazepines Scrn (Not Detect) Urine Cocaine Screen (Not Detect) U Marijuana (THC) Screen (Not Detect) Ethyl Alcohol < 10 mg/dL 04/12/24 04/12/24 04/12/24 Range/Units 02:08 02:50 05:52 WBC 7.2 (4.8-10.8) X10*3/uL RBC 3.82 L (4.20-5.50) X10*6/uL Hgb 10.8 L (12.0-16.0) g/dl Hct 32.8 L (37.0-47.0) % MCV 85.9 (80.0-98.0) fL MCH 28.3 (27.0-33.0) pg MCHC 32.9 (31.0-35.0) g/dl RDW 13.6 (11.0-16.0) % Plt Count 299 (160-400) X10*3/uL MPV 9.5 (9.4-12.3) fL Immature Gran % (Auto) (0.0-0.4) % Neut % (Auto) (45-73) % Lymph % (Auto) (20-40) % [place] % (Auto) (2-11) % Eos % (Auto) (0-4) % Baso % (Auto) (0-2) % Lymph # (Auto) (1.2-4.9) X10*3/uL [place] # (Auto) (0.1-1.2) X10*3/uL Eos # (Auto) (0.0-0.4) X10*3/uL Baso # (Auto) (0.0-0.2) X10*3/uL Abs Immat Gran (auto) (0.00-0.03) X10*3/uL Absolute Neuts (auto) (2.0-8.3) x10*3/uL Absolute Nucleated RBC 0.000 (0.0-0.012) X10*3/uL Nucleated RBC % (auto) 0.0 (0.0-0.2) /100WBC PT (10.9-12.4) SEC INR (0.9-1.1) APTT 30.5 (26.0-36.8) SEC D-Dimer High Sensitivty NG/ML Sodium (135-145) mmol/L Potassium (3.3-5.1) mmol/L Chloride (96-108) mmol/L Carbon Dioxide (22-29) mmol/L Anion Gap (12-20) BUN (9-16) mg/dL Creatinine (0.5-1.4) mg/dL Estim Creat Clear Calc Estimated GFR Random Glucose (60-115) mg/dL Lactic Acid 0.6 (0.5-2.0) mmol/L Calcium (8.4-10.2) mg/dL Magnesium (1.6-2.6) mg/dL Total Bilirubin (0.0-1.0) mg/dL Direct Bilirubin (0.0-0.5) mg/dL AST (5-31) U/L ALT (0-31) U/L Alkaline Phosphatase (39-117) U/L Ammonia (13-55) umol/L Total Creatine Kinase (26-140) U/L Troponin I High Sens (<3.5-17.0) ng/L Total Protein (6.5-8.0) g/dL Albumin (3.5-5.0) g/dL Lipase (8-78) U/L TSH (0.32-4.0) uIU/mL Beta HCG, Quant mIU/mL Urine Color Yellow Urine Appearance Clear Urine pH 8.0 (5.0-9.0) Ur Specific Marvin >= 1.030 H (1.005-1.025) Urine Protein Negative (Neg-Trace) mg/dL Urine Glucose (UA) Negative (Negative) mg/dL Urine Ketones Trace (Negative) mg/dL Urine Blood Negative (Negative) Urine Nitrite Negative (Negative) Ur Leukocyte Esterase Negative (Negative) Salicylates < 5.0 L (15-30) mg/dL Urine Opiates Screen POSITIVE H (Not Detect) Ur Buprenorphine Scrn Not Detected (Not Detect) ng/mL Ur Oxycodone Screen Not Detected (Not Detect) ng/mL Urine Methadone Screen Not Detected (Not Detect) ng/mL Urine Fentanyl Screen Not Detected (Not Detect) Acetaminophen (<30) mcg/mL Ur Barbiturates Screen POSITIVE H (Not Detect) Ur Phencyclidine Scrn Not Detected (Not Detect) Ur Amphetamines Screen Not Detected (Not Detect) U Benzodiazepines Scrn Not Detected (Not Detect) Urine Cocaine Screen Not Detected (Not Detect) U Marijuana (THC) Screen Not Detected (Not Detect) Ethyl Alcohol mg/dL Radiology Impression Discussion of test interpretation with radiology: I have reviewed the radiologist's reading. Radiologist Impression: CT Head without contrast. CT angiography head and neck with contrast. 3D Postprocessing. Comparison: None Findings: HEAD CT: No intra-axial mass, midline shift, hydrocephalus, or acute hemorrhage. No significant atrophy-like change or white matter disease. The visualized paranasal sinuses and mastoid air cells are normal. The orbits are within normal limits. No skull fracture. HEAD AND NECK CTA: Aortic arch and cervical great vessels are patent. Intracranial arteries are patent. No aneurysm, dissection, or occlusion. No abnormal intracranial enhancement. The visualized thyroid gland is unremarkable. No cervical mass or fluid collection. Minor dependent atelectasis in the upper lungs. No acute fracture. IMPRESSION: 1. Unremarkable head CT. 2. Patent head and neck CTA. This document has been electronically signed by: Jas Haskins, abdomen limited Comparison: CT/SR - CT ABDOMEN PELVIS W IV CON - 04/11/24 21:[address]/SR - CT ABDOMEN PELVIS W IV CON - 04/08/24 14:41 EST Findings: The visualized pancreas is normal. The aorta and inferior vena cava are normal caliber. The liver is normal in size and echotexture. Posterior to the right lobe there is a simple thin-walled cystic lesion 3.2 x 1.8 x 1.9 cm. Corresponds with the lesion seen on CT. There is no intrahepatic bile duct dilatation. The common duct is 3 mm in diameter. The gallbladder is normal. There is no sonographic Franklin sign. The main portal vein is antegrade. Normal right kidney 11 cm. No ascites. IMPRESSION: 1. Simple cyst posterior to the right liver, similar to appearance on prior CTs. Etiology indeterminate. 2. Otherwise unremarkable right upper quadrant ultrasound. This document has been electronically signed by: Jas Haskins MD on 04/11/2024 23:14:16 CT abdomen and pelvis with contrast Comparison: CT of the abdomen and pelvis from 04/08/2024 Findings: Mild bibasilar atelectasis. Imaged solid abdominal organs are unchanged. Fluid and dorsal margin of the right lobe of the liver measures 2 cm (previously 2 cm). Differential considerations include small neuro-enteric cyst. Small abscess considered less likely, as there is no adjacent inflammatory stranding at this time. Gallbladder is unremarkable for CT. Small mesenteric lymph nodes may be reactive. No small bowel obstruction. Severe stool burden is present, including the cecum. The appendix is within normal limits. Urinary bladder is mildly distended. Uterus is anteverted. No adnexal soft tissue mass. Mild free fluid in the pelvis is likely physiologic. Degenerative changes include mild lower lumbar facet arthropathy. IMPRESSION: 1. No significant change in 2 cm focus of fluid dorsal to the right lobe of the liver. 2. Severe stool burden no small bowel obstruction. 3. No CT findings of acute appendicitis. This document has been electronically signed by: Eitan Harrell MD on 04/11/2024 21:56:21 External Record Review External record reviewed: Inpatient record Critical Care Time Critical Care Time Critical Care Time: Yes Total Critical Care Time: 35 Attestation: Critical Care: The patient was critically ill with a high probability of imminent or life threatening deterioration. I spent greater than 30 minutes of discontinuous time evaluating the patient,delivering critical care at the bedside, discussing and evaluating pertinent data with consultants. Critical care time does not include time spent performing separately billable procedures or teaching. Total time spent performing critical care was 35 minutes. Discharge Plan Discharge Clinical Impression: Chest pain, Syncope Constipation Qualifiers: Constipation type: unspecified constipation type Qualified Code(s): K59.00 - Constipation, unspecified Patient Disposition: Admitted As Inpatient
[2024-04-11 15:40] LABS: MANUAL DIFF FLAG NO
[2024-04-11 15:42] LABS: Basophils Percent Auto 0.5 % (0-2); Eosinophils Absolute Auto 0.2 X10*3/uL (0.0-0.4); Eosinophils Percent Auto 2.7 % (0-4); Hematocrit 36.1 % (37.0-47.0); Hemoglobin 12.1 g/dl (12.0-16.0); Imm Gran Abs Auto 0.03 X10*3/uL (0.00-0.03); Imm Gran Pct Auto 0.3 % (0.0-0.4); Lymphocytes Absolute Auto 1.3 X10*3/uL (1.2-4.9); Lymphocytes Percent Auto 14.6 % (20-40); Mean Corpuscular HGB Conc 33.5 g/dl (31.0-35.0); Mean Corpuscular Hemoglobin 28.5 pg (27.0-33.0); Mean Corpuscular Volume 85.1 fL (80.0-98.0); Mean Platelet Volume 9.3 fL (9.4-12.3); Monocytes Absolute Auto 0.8 X10*3/uL (0.1-1.2); Neutrophils Absolute Auto 6.4 x10*3/uL (2.0-8.3); Neutrophils Percent Auto 72.9 % (45-73); Platelet Count 350 X10*3/uL (160-400); Red Blood Count 4.24 X10*6/uL (4.20-5.50); Red Cell Distribution Width 13.4 % (11.0-16.0); White Blood Count 8.8 X10*3/uL (4.8-10.8)
[2024-04-11 15:47] LABS: INTERNATIONAL NORM RATIO 1.2 (0.9-1.1); Prothrombin Time 14.5 SEC (10.9-12.4)
[2024-04-11 16:08] LABS: Alanine Aminotransferase 317 U/L (0-31); Albumin Level 4.1 g/dL (3.5-5.0); Anion Gap 10 (12-20); Aspartate Amino Transferase 211 U/L (5-31); Bilirubin Total 0.5 mg/dL (0.0-1.0); Blood Urea Nitrogen 9 mg/dL (9-16); Calcium 9.3 mg/dL (8.4-10.2); Carbon Dioxide 27 mmol/L (22-29); Chloride 108 mmol/L (96-108); Creatinine Clr Calc Pharmacy 95.9; Estimated Glomerular Filt Rate > 60; Glucose Random 98 mg/dL (60-115); HCG Quantitative < 2 mIU/mL; Magnesium 2.1 mg/dL (1.6-2.6); Potassium 3.8 mmol/L (3.3-5.1); Sodium 141 mmol/L (135-145)
[2024-04-11 17:12] LABS: Alkaline Phosphatase 66 U/L (39-117)
[2024-04-11 20:02] VITALS: BP 119/73; PULSE 66; RESP 16; TEMP 36.6; O2SAT 96
--- OUTSIDE RECORDS SUMMARY | 2024-04-11 20:09 | XMS_ITS | Clinical Summary ---
Author Organization [address] Address [address] [place] [phone] Phone Care Team Providers Care Personal Injury Attorney Name Role Phone Consuelo Garcia MD Primary Care Provider [phone] Allergies Active Allergy Reactions Criticality Noted Date [...] 10:50 AM EST Lab Draw Station - [address] Vitamin D deficiency (Primary Dx); Elevated homocysteine; Anxiety; Tubular adenoma of colon; Hidradenitis suppurativa of left axilla; Breakthrough bleeding on Depo-Provera; Bipolar depression (CMS/HCC); Panic attacks; PTSD (post-traumatic stress disorder); Tobacco use disorder; Fatigue; Menorrhagia with regular cycle 01/28/2024 10:15 AM EST Office Visit Obstetrics and Gynecology - [address] [phone] Sowmya Miranda MD Encounter for gynecological examination without abnormal finding (Primary Dx); Screening for cervical cancer; Menorrhagia with regular cycle; Screening examination for venereal disease from Last 3 Months Immunizations Name Administration Dates Next Due Hepatitis B ([employer]-N-Upzvc , Recombivax HB-Adult) 19yo and older 08/26/1999,12/31/1998,10/14/1998 [...] COMMENT: removal of tube VAGINOSCOPY 12/2006 PROCEDURE: MA COLPOSCOPY CERVIX VAG LOOP ELTRD BX CERVIX OVARIAN CYST REMOVAL PROCEDURE: MA OVARIAN CYSTECTOMY UNI/BI; COMMENT: 2007 laproscopic SECTION 04/04/2009 PROCEDURE: [place] DELIVERY ONLY TUBAL LIGATION PROCEDURE: HISTORICAL TUBAL [...] Vag-S pont Epidur al Livin g Delivery Location:[facility] 02/2007 Ectopic Delivery Location:right ecto pic 010 36w 0d 2325 g (82 oz) F CS-Un spec Spinal Livin g Delivery Location:[facility] 2011 IAB Last Filed Vital Signs [...] EDT Office Visit Obstetrics and Gynecology - [address] [phone] Sowmya Miranda MD [address] [place], [place] Health Maintenance Due Date Last Done [...] t3 (01/28/2024 10:56 AM EST) Pathologist [facility] [place] TSH 2.79 0.40 - 4.00 mcIU/mL LAB CHEMISTRY METHOD 01/28/2024 4:16 PM EST [facility] Blood Venous blood specimen / Unknown Venipuncture / Unknown 01/28/2024 10:56 AM EST 01/28/2024 10:56 AM EST us Sowmya Miranda MD LAB BLOOD ORDERABLES Final Result [facility] [address] [place] [address], [place] [phone] * CBC auto differential (01/28/2024 10:56 AM EST) WBC 8.5 4.8 - 10.8 K/mcL LAB HEMETOLOGY METHOD 01/28/2024 2:13 PM [facility] RBC 4.20 3.80 - 4.80 M/mcL LAB HEMETOLOGY METHOD 01/28/2024 2:13 PM [facility] Hemoglobin 11.9 11.5 - 16.0 g/dL LAB HEMETOLOGY METHOD 01/28/2024 2:13 PM [facility] Hematocrit 36.8 35.0 - 47.0 % LAB HEMETOLOGY METHOD 01/28/2024 2:13 PM [facility] MCV 88.2 79.0 - 98.0 FL LAB HEMETOLOGY METHOD 01/28/2024 2:13 PM [facility] MCH 28.5 27.0 - 32.0 pcg LAB HEMETOLOGY METHOD 01/28/2024 2:13 PM [facility] MCHC 32.3 32.0 - 37.0 g/dL LAB HEMETOLOGY METHOD 01/28/2024 2:13 PM [facility] RDW 13.4 11.0 - 15.0 % LAB HEMETOLOGY METHOD 01/28/2024 2:13 PM [facility] Platelets 381 130 - 400 K/mcL LAB HEMETOLOGY METHOD 01/28/2024 2:13 PM [facility] MPV 10.0 7.0 - 11.0 FL LAB HEMETOLOGY METHOD 01/28/2024 2:13 PM [facility] NRBC 0.0 <1.0 % LAB HEMETOLOGY METHOD 01/28/2024 2:13 PM [facility] NRBC Absolute 0.00 <0.10 K/mcL LAB HEMETOLOGY METHOD 01/28/2024 2:13 PM [facility] Neutrophils Relative 61.2 % LAB HEMETOLOGY METHOD 01/28/2024 2:13 PM [facility] Lymphocytes Relative 26.0 % LAB HEMETOLOGY METHOD 01/28/2024 2:13 PM [facility] Monocytes Relative 10.3 % LAB HEMETOLOGY METHOD 01/28/2024 2:13 PM [facility] Eosinophils Relative 1.5 % LAB HEMETOLOGY METHOD 01/28/2024 2:13 PM [facility] Basophils Relative 0.6 % LAB HEMETOLOGY METHOD 01/28/2024 2:13 PM [facility] Immature Granulocytes Relative 0.4 % LAB HEMETOLOGY METHOD 01/28/2024 2:13 PM [facility] Neutrophils Absolute 5.19 1.50 - 7.00 K/mcL LAB HEMETOLOGY METHOD 01/28/2024 2:13 PM [facility] Lymphocytes Absolute 2.20 1.00 - 5.00 K/mcL LAB HEMETOLOGY METHOD 01/28/2024 2:13 PM [facility] Monocytes Absolute 0.87 0.20 - 1.00 K/mcL LAB HEMETOLOGY METHOD 01/28/2024 2:13 PM [facility] Eosinophils Absolute 0.13 0.00 - 0.50 K/mcL LAB HEMETOLOGY METHOD 01/28/2024 2:13 PM [facility] Basophils Absolute 0.05 0.00 - 0.20 K/mcL LAB HEMETOLOGY METHOD 01/28/2024 2:13 PM [facility] Immature Granulocytes Absolute 0.03 0.00 - 0.03 K/mcL LAB HEMETOLOGY METHOD 01/28/2024 2:13 PM [facility] Blood Venous blood specimen / Unknown Venipuncture / Unknown 01/28/2024 10:56 AM EST 01/28/2024 10:56 AM EST us Sowmya Miranda MD LAB BLOOD ORDERABLES Final Result Performing Organization Address City/[facility]/ZIP Co de Phone Number [facility] [address] [place] [address], [place] [phone] * HPV with reflex genotype (01/28/2024 10:40 AM EST) HPV Negative Negative LAB MICROBIOLOGY METHOD 01/31/2024 2:12 PM EST [facility] Broom Cervix uteri structure / Unknown 01/28/2024 10:40 AM EST 01/31/2024 8:01 AM EST us Sowmya Miranda MD LAB MOLECULAR DIAGNOSTICS O RDERABLES Final Result Performing Organization Address [facility] Co de Phone Number [facility] [address] [place] [address], [place] [phone] * Chlamydia trachomatis and Neisseria gonorrhoeae molecular study (01/28/2024 10:40 AM EST) Pathologist [facility] [place] Neisseria gonorrhoeae PCR Negative Negative LAB MOLECULAR DIAGNOSTICS METHOD 01/29/2024 8:46 AM EST [facility] Chlamydia trachomatis PCR Negative Negative LAB MOLECULAR DIAGNOSTICS METHOD 01/29/2024 8:46 AM EST [facility] Swab Cervix uteri structure / Unknown Non-blood Collection / Unknown 01/28/2024 10:40 AM EST 01/28/2024 10:40 AM EST us Sowmya Miranda MD LAB MICROBIOLOGY - GENERAL ORDERABLES Final Result Performing Organization Address City/[facility]/ZIP Co de Phone Number [facility] [address] [place] [address], [place] [phone] * Pap smear (01/28/2024 10:40 AM EST) Interpretation Negative for intraepithelial lesion or malignancy 02/04/2024 3:17 PM EST [facility] General Categorization Negative 02/04/2024 3:17 PM EST [facility] Other Findings Shift in chacorta suggestive of bacterial vaginosis Reparative changes 02/04/2024 3:17 PM [facility] LMP 01/18/2024 02/04/2024 3:17 PM [facility] Specimen Adequacy Satisfactory for evaluation 02/04/2024 3:17 PM [facility] Pap Methodology Liquid Based Pap Test 02/04/2024 3:17 PM [facility] Disclaimer The Pap test is a screening test which carries an inherent false negative rate. These test results should be correlated with the patient's clinical findings and history. This Pap test was processed using an automated screening system. Technical cytopathology services provided by [facility], at [address] [place] [address] (CLIA # [id number]/Kirsten Louis MD, Therapist Respiratory.) 02/04/2024 3:17 PM [facility] Console Pap Interpretation Reported 02/04/2024 3:17 PM [facility] Broom Cervix uteri structure / Unknown 01/28/2024 10:40 AM EST 01/28/2024 10:40 AM EST Sowmya Miranda MD LAB CYTOLOGY ORDERABLES Fin al Result [facility] [address] [place] [address], * Hepatitis C Screening (05/06/2023) Pathologist [facility] Hepatitis C Screening ABSTRACTED Historical Provider [...] Result * HIV Screening (07/08/2009) Pathologist [facility] [place] HIV Screening ABSTRACTED Historical Provider HEALTH MAINTENANCE Final Result from Last 3 Months or Most Recently Relevant to Health Maintenance Insurance [place]ICA[place] - [place] [facility] MEDICARE ADVANTAGE on file Care Teams Personal Injury Attorney Relationship Specialty Start Date End Date Consuelo Garcia MD [address] [place] [id number] PCP - General Internal Medicine 11/21/20
--- OUTSIDE RECORDS SUMMARY | 2024-04-11 20:09 | XMS_ITS | Clinical Summary ---
Author Organization [facility] Address [address] [place] [address] Care Team Providers Care Gas Pipe Layer Name Role Phone EdgarStefanie Barrera Primary Care [...] complete this topic Insurance , [address] [place] [address] [facility] [place] [id number] Care Teams Gas Pipe Layer Relationship Specialty Start Date End Date Stefanie Hernandez PCP - General Internal Medicine 07/18/20
--- OUTSIDE RECORDS SUMMARY | 2024-04-11 20:09 | XMS_ITS | Referral Summary ---
Author Organization [facility] Address [address] [place] [address] Care Team Providers Care Ceo & Board Director Name Role Phone MonicajosselynakosuaStefanie Barrera Primary Care Provid er Allergies No [...] Orientation Not on file Plan of Treatment Not on file Insurance [facility] [employer] [place] [id number] Care Teams Ceo & Board Director Relationship Specialty Start Date End Date Stefanie Hernandez PCP - General Internal Medicine 07/18/20
--- NOTE | 2024-04-11 20:22 | ECG_ITS ---
Test Reason : NAUSEA Blood Pressure : */* mmHG Vent. Rate : 65 BPM Atrial Rate : 65 BPM P-R Int : 180 ms QRS Dur : 74 ms QT Int : 424 ms P-R-T Axes : 47 7 12 degrees QTcB Int : 440 ms Normal sinus rhythm Normal ECG When compared with ECG of 08-Apr-2024 16:24, No significant change was found Referred By: Michael Chiang Electronically Signed By: Cecil Rebollar
[2024-04-11 20:53] LABS: Alanine Aminotransferase 299 U/L (0-31); Alkaline Phosphatase 65 U/L (39-117); Aspartate Amino Transferase 187 U/L (5-31); Bilirubin Direct 0.2 mg/dL (0.0-0.5); Bilirubin Total 0.4 mg/dL (0.0-1.0); Lactic Acid 1.2 mmol/L (0.5-2.0); Lipase 12 U/L (8-78); Total Protein 6.9 g/dL (6.5-8.0)
[2024-04-11 21:01] LABS: Troponin-I High Sensitivity < 2.7 ng/L (<3.5-17.0)
[2024-04-11] MEDS: iohexoL 350 MG/ML 100 ML INFUS..BTL 85 ML IV (21:10)
[2024-04-11] MEDS: Morphine Sulfate 2 MG/ML CARTRIDGE IVPUSH (21:20)
[2024-04-11 21:22] VITALS: BP 145/87; PULSE 66; RESP 16; TEMP 36.8; O2SAT 96
[2024-04-11] MEDS: Lactulose 20 GM/30 ML SOLUTION PO (23:11)
[2024-04-11] MEDS: Docusate Sodium 100 MG CAPSULE PO (23:11)
[2024-04-11] MEDS: Mineral OiL enema 133 ML ENEMA PR (23:12)
[2024-04-11 23:25] VITALS: BP 114/71; PULSE 70; RESP 16; TEMP 36.5; O2SAT 98
[2024-04-12] VITALS (8 sets, daily range): BP systolic 98–186; BP diastolic 55–92; PULSE 61–95; RESP 12–20; TEMP 36.5–37; O2SAT 97–100
--- NOTE | 2024-04-12 01:10 | ECG_ITS ---
Test Reason : chest pain Blood Pressure : */* mmHG Vent. Rate : 65 BPM Atrial Rate : 65 BPM P-R Int : 166 ms QRS Dur : 76 ms QT Int : 432 ms P-R-T Axes : 62 1 2 degrees QTcB Int : 449 ms Normal sinus rhythm Normal ECG When compared with ECG of 11-Apr-2024 21:04, No significant change was found Referred By: Michael Chiang Electronically Signed By: Cecil Rebollar
[2024-04-12 01:15] LABS: Acetaminophen LAB < 3 mcg/mL (<30)
[2024-04-12 01:44] LABS: Troponin-I High Sensitivity < 2.7 ng/L (<3.5-17.0)
[2024-04-12 01:56] LABS: Ammonia 38 umol/L (13-55)
[2024-04-12] MEDS: 0.9 % Sodium Chloride 1,000 ML 999 ML IV (02:05)
[2024-04-12 02:08] LABS: Basophils Percent Auto 0.4 % (0-2); Eosinophils Absolute Auto 0.3 X10*3/uL (0.0-0.4); Eosinophils Percent Auto 2.9 % (0-4); Hemoglobin 12.8 g/dl (12.0-16.0); Imm Gran Abs Auto 0.03 X10*3/uL (0.00-0.03); Imm Gran Pct Auto 0.3 % (0.0-0.4); Lymphocytes Absolute Auto 2.7 X10*3/uL (1.2-4.9); Lymphocytes Percent Auto 29.6 % (20-40); MANUAL DIFF FLAG NO; Mean Corpuscular HGB Conc 34.6 g/dl (31.0-35.0); Mean Corpuscular Hemoglobin 28.7 pg (27.0-33.0); Mean Platelet Volume 9.8 fL (9.4-12.3); Monocytes Absolute Auto 1.2 X10*3/uL (0.1-1.2); Monocytes Percent Auto 13.3 % (2-11); Neutrophils Absolute Auto 4.8 x10*3/uL (2.0-8.3); Neutrophils Percent Auto 53.5 % (45-73); Platelet Count 384 X10*3/uL (160-400); Red Blood Count 4.46 X10*6/uL (4.20-5.50); Red Cell Distribution Width 13.4 % (11.0-16.0)
--- NOTE | 2024-04-12 02:10 | PC.NURSE ---
patient reporting nausea and weakness, stated i just dont feel right also c/o of chest pain, spoke with ED provider EKG and additional lab ordered. Patient noted to have episode where oxygen dropped to 82 with good wave formation, provider to bedside and patient found to be minimally responsive , oxygen came back up without intervention, during episode patients heart rate increased to 130s, all resolved without intervention. IV fluids hung and additional blood work drawn
[2024-04-12 02:26] LABS: Anion Gap 15 (12-20); Blood Urea Nitrogen 8 mg/dL (9-16); Calcium 9.1 mg/dL (8.4-10.2); Carbon Dioxide 21 mmol/L (22-29); Chloride 108 mmol/L (96-108); Creatinine Clr Calc Pharmacy 99.8; Estimated Glomerular Filt Rate > 60; Ethanol < 10 mg/dL; Glucose Random 106 mg/dL (60-115); Potassium 3.4 mmol/L (3.3-5.1); Sodium 141 mmol/L (135-145)
[2024-04-12 02:29] LABS: Lactic Acid 0.6 mmol/L (0.5-2.0)
[2024-04-12 02:56] LABS: Appearance Urine Clear; Color Urine Yellow; Glucose Urine UA Negative (Negative); Leukocyte Esterase Urine Negative (Negative); Nitrite Urine Negative (Negative); Specific Gravity - Urine >= 1.030 (1.005-1.025); Urine Blood Negative (Negative); Urine Ketones Trace mg/dL (Negative); Urine Protein Negative (Neg-Trace)
[2024-04-12 03:06] LABS: Amphetamine Screen Urine Not Detected (Not Detect); Barbiturates, Urine POSITIVE (Not Detect); Benzodiazepines Screen Urine Not Detected (Not Detect); Buprenorphine Scr Not Detected (Not Detect); Cannabinoid Screen Urine Not Detected (Not Detect); Cocaine Screen Urine Not Detected (Not Detect); Fentanyl, urine Not Detected (Not Detect); Methadone Screen, Urine Not Detected (Not Detect); Opiate Screen Urine POSITIVE (Not Detect); Oxycodone Screen Urine Not Detected (Not Detect); Phencyclidine Screen Urine Not Detected (Not Detect)
[2024-04-12 03:45] LABS: Salicylate < 5.0 mg/dL (15-30)
[2024-04-12 04:07] LABS: D Dimer High Sensitivity 3476 NG/ML
[2024-04-12] MEDS: Enoxaparin Sodium 80 MG/0.8 ML SYRINGE SUBCUT (05:44)
[2024-04-12 06:07] LABS: Hematocrit 32.8 % (37.0-47.0); Hemoglobin 10.8 g/dl (12.0-16.0); Mean Corpuscular HGB Conc 32.9 g/dl (31.0-35.0); Mean Corpuscular Hemoglobin 28.3 pg (27.0-33.0); Mean Corpuscular Volume 85.9 fL (80.0-98.0); Mean Platelet Volume 9.5 fL (9.4-12.3); Platelet Count 299 X10*3/uL (160-400); Red Blood Count 3.82 X10*6/uL (4.20-5.50); Red Cell Distribution Width 13.6 % (11.0-16.0); White Blood Count 7.2 X10*3/uL (4.8-10.8)
[2024-04-12 06:12] LABS: Partial Thromboplastin Time 30.5 SEC (26.0-36.8)
--- NOTE | 2024-04-12 06:37 | P.HPHOSP_ITS ---
History of Present Illness Date of Service: 04/12/24 <STIVEN Andino Last Filed: 04/12/24 06:47> Attending physician on admission: Loly Rueda <STIVEN Andino Last Filed: 04/12/24 06:47> Chief Complaint: abd pain, difficulty urinating, rectal pain <STIVEN Andino Last Filed: 04/12/24 06:47> Patient is a 38-year-old female with a past medical history significant for mood disorder, and recent admission for colitis from , discharged with Levaquin and Flagyl, who presented to the ED again due to difficulty urinating, abdominal pain and rectal pain. She described her abdominal pain is burning, last p.m. was yesterday. She reported she was unable to urinate since yesterday as well. Since being in the ED she was able to urinate and was given multiple medications including lactulose, docusate and an enema for her constipation and has yet to have a bowel movement. Around 01:00 she did experience chest pain, nausea and a syncopal episode. EKG and troponin were negative. D-dimer was elevated. <STIVEN Andino Last Filed: 04/12/24 06:47> Review of Systems 2 Constitutional: Constitutional: Denies body ache(s), Denies chills, Denies fatigue, Denies fever(s) and Reports headache(s) <STIVEN Andino Last Filed: 04/12/24 06:47> Eyes: Eyes: Denies change in vision and Denies photophobia <STIVEN Andino Last Filed: 04/12/24 06:47> ENT: Reports headache(s), Denies nasal congestion, Denies nasal discharge and Denies sore throat <STIVEN Andino Last Filed: 04/12/24 06:47> Cardiovascular: Cardiovascular: Reports chest pain, Reports syncope, Denies rapid heart rate, Denies leg edema, Reports lightheadedness and Denies dyspnea <STIVEN Andino Last Filed: 04/12/24 06:47> Respiratory: Respiratory: Denies chest congestion, Denies cough, Denies dyspnea and Denies wheezing <ROBERT AndinoYasemin [place] Last Filed: 04/12/24 06:47> Gastrointestinal: Gastrointestinal: Reports abdominal pain, Reports constipation, Denies diarrhea and Reports nausea <ROBERT AndinoYasemin [place] Last Filed: 04/12/24 06:47> Genitourinary: Genitourinary: Reports urinary hesitancy <LOGAN AndinoNish [place] Last Filed: 04/12/24 06:47> Musculoskeletal: Musculoskeletal: Denies back pain and Denies myalgias < LOGAN AndinoNish [place] Last Filed: 04/12/24 06:47> Integumentary/Breasts: Skin/Breast: Denies rash <LOGAN AndinoNish [place] Last Filed: 04/12/24 06:47> Neurologic: Denies confusion, Reports syncope and Reports headache(s) < LOGAN AndinoNish Last Filed: 04/12/24 06:47> Psychiatric: Psychiatric: Denies confusion <LOGAN AndinoNish [place] Last Filed: 04/12/24 06:47> Endocrine: Endocrine: Denies fatigue <LOGAN AndinoFidencio Last Filed: 04/12/24 06:47> Hematologic/Lymphatic: Hematologic/Lymphatic: Denies easy bleeding and Denies easy bruising <LOGAN AndinoNish [place] Last Filed: 04/12/24 06:47> Allergic/Immunologic: Allergic/Immunologic: Denies wheezing <LOGAN AndinoNish [place] Last Filed: 04/12/24 06:47> ON LICENSE OF [facility] Medical History: Medical History Obesity (BMI 30.0-34.9) Diarrhea Hx of ectopic Depression Bipolar disorder Epigastric hernia <Alisa Mascorro PA-C [place] Last Filed: 04/12/24 06:47> Functional capacity: independent ambulation <Alisa Mascorro PA-C [place] Last Filed: 04/12/24 06:47> Surgical History: Surgical History Hx of tubal ligation History of loop electrical excision procedure (LEEP) Hx of laparoscopy History of <Alisa Mascorro PA-C - Last Filed: 04/12/24 06:47> Social History: Social History Household Members: Children Housing: Apartment Are you a primary acute care occupational therapist to a significant other at home: Yes (children-one is still a minor-18 year old will care for child day of surg.) Do you presently have visiting nurse or other home services: No Alcohol intake: former Patient Tobacco Use Status: Never used Tobacco Tobacco use type: Cigarette Cigarettes Per Day: 5 Years Smoked: 12 Smoked in Last 30 Days: No Use of substances other than those prescribed or required for medical reasons: No Advance Directives: No Advance Directives Information Provided: No Do you have a plan to hurt others: No Plan Patient : No service: No <Alisa Mascorro PA-C - Last Filed: 04/12/24 06:47> Meds Allergies/Adverse reactions: Allergies Allergy/AdvReac Type Severity Reaction Status Date / Time latex [LATEX] Allergy Mild Hives Verified 04/11/24 15:19 <Alisa Mascorro PA-C - Last Filed: 04/12/24 06:47> Home medications: Home Medications ?Medication ?Instructions ?Recorded ?Confirmed ?Last Taken ?Type aripiprazole 5 mg tablet 5 mg PO DAILY 04/08/24 04/08/24 1 Week Ago History ~04/01/24 clonidine HCl 0.1 mg tablet 0.1 mg PO BEDTIME PRN Anxiety 04/08/24 04/08/24 Unknown History escitalopram oxalate 10 mg tablet 10 mg PO DAILY 04/08/24 04/08/24 1 Week Ago History ~04/01/24 escitalopram oxalate 20 mg tablet 20 mg PO DAILY@1500 04/08/24 04/08/24 1 Week Ago History ~04/01/24 gabapentin 400 mg capsule 800 mg PO TID 04/08/24 04/08/24 1 Week Ago History ~04/01/24 lamotrigine 25 mg tablet 50 mg PO TID 04/08/24 04/08/24 1 Week Ago History ~04/01/24 lorazepam 0.5 mg tablet 0.5 mg PO BID PRN Anxiety 04/08/24 04/08/24 Unknown History prazosin 5 mg capsule 5 mg PO BEDTIME 04/08/24 04/08/24 1 Week Ago History ~04/01/24 quetiapine 200 mg tablet,extended 200 mg PO BEDTIME 04/08/24 04/09/24 1 Week Ago History release 24 hr ~04/01/24 quetiapine 50 mg tablet,extended 50 mg PO DAILY 04/08/24 04/08/24 1 Week Ago History release 24 hr ~04/01/24 <Alisa Mascorro PA-C - Last Filed: 04/12/24 06:47> Physical Exam 2 Vital Signs and Narrative: Vital Signs: Last Vital Signs Temp 98.6 F 04/12/24 05:52 Pulse 69 04/12/24 05:52 Resp 13 04/12/24 05:52 BP 111/75 04/12/24 05:52 Pulse Ox 100 04/12/24 05:52 O2 Del Method Room Air 04/12/24 05:52 BMI result Body Mass Index 33.2 <Alisa Mascorro PA-C - Last Filed: 04/12/24 06:47> General: AOx3, no acute distress Resp: CTA bilaterally CVS: S1, S2, RRR GI: +BS, tender throughout, worse left lower quadrant, no distention Skin: Warm, dry Neuro: Cranial nerves II-XII grossly intact bilaterally. Motor grossly intact bilaterally Extremities: No lower extremity edema Psych: Appropriate affect <Alisa Mascorro PA-C - Last Filed: 04/12/24 06:47> Const: General: No confusion <STIVEN Andino Last Filed: 04/12/24 06:47> Orientation/consciousness: No confusion <STIVEN Andino Last Filed: 04/12/24 06:47> Eyes: Direct Ophthalmoscopy: No photophobia <STIVEN Andino Last Filed: 04/12/24 06:47> Neuro: General: No confusion <STIVEN Andino Last Filed: 04/12/24 06:47> Results Labs CBC and Chem 7: 04/12/24 05:52 04/12/24 02:03 <Alisa Mascorro PA-C - Last Filed: 04/12/24 06:47> Labs: Laboratory Results - last 24 hr 04/11/24 04/11/24 04/12/24 15:27 20:29 00:51 MCV 85.1 MCH 28.5 MCHC 33.5 RDW 13.4 Plt Count 350 MPV 9.3 L Immature Gran % (Auto) 0.3 Neut % (Auto) 72.9 Lymph % (Auto) 14.6 L [place] % (Auto) 9.0 Eos % (Auto) 2.7 Baso % (Auto) 0.5 Lymph # (Auto) 1.3 [place] # (Auto) 0.8 Eos # (Auto) 0.2 Baso # (Auto) 0.0 Abs Immat Gran (auto) 0.03 Absolute Neuts (auto) 6.4 Absolute Nucleated RBC 0.000 Nucleated RBC % (auto) 0.0 PT 14.5 H INR 1.2 H APTT D-Dimer High Sensitivty 3476 Anion Gap 10 L Estim Creat Clear Calc 95.9 Estimated GFR > 60 Random Glucose 98 Lactic Acid 1.2 Calcium 9.3 D Magnesium 2.1 Total Bilirubin 0.5 0.4 Direct Bilirubin 0.2 AST 211 H 187 H ALT 317 H 299 H Alkaline Phosphatase 66 65 Ammonia Total Protein 7.0 6.9 Albumin 4.1 4.0 Lipase 12 Beta HCG, Quant < 2 Urine Color Urine Appearance Urine pH Ur Specific [place] Urine Protein Urine Glucose (UA) Urine Ketones Urine Blood Urine Nitrite Ur Leukocyte Esterase Salicylates Urine Opiates Screen Ur Buprenorphine Scrn Ur Oxycodone Screen Urine Methadone Screen Urine Fentanyl Screen Acetaminophen < 3 Ur Barbiturates Screen Ur Phencyclidine Scrn Ur Amphetamines Screen U Benzodiazepines Scrn Urine Cocaine Screen U Marijuana (THC) Screen Ethyl Alcohol 04/12/24 04/12/24 04/12/24 01:37 02:03 02:08 MCV 83.0 MCH 28.7 MCHC 34.6 RDW 13.4 Plt Count 384 MPV 9.8 Immature Gran % (Auto) 0.3 Neut % (Auto) 53.5 Lymph % (Auto) 29.6 [place] % (Auto) 13.3 H Eos % (Auto) 2.9 Baso % (Auto) 0.4 Lymph # (Auto) 2.7 [place] # (Auto) 1.2 Eos # (Auto) 0.3 Baso # (Auto) 0.0 Abs Immat Gran (auto) 0.03 Absolute Neuts (auto) 4.8 Absolute Nucleated RBC 0.000 Nucleated RBC % (auto) 0.0 PT INR APTT D-Dimer High Sensitivty Anion Gap 15 Estim Creat Clear Calc 99.8 Estimated GFR > 60 Random Glucose 106 Lactic Acid 0.6 Calcium 9.1 Magnesium Total Bilirubin Direct Bilirubin AST ALT Alkaline Phosphatase Ammonia 38 Total Protein Albumin Lipase Beta HCG, Quant Urine Color Urine Appearance Urine pH Ur Specific [place] Urine Protein Urine Glucose (UA) Urine Ketones Urine Blood Urine Nitrite Ur Leukocyte Esterase Salicylates < 5.0 L Urine Opiates Screen Ur Buprenorphine Scrn Ur Oxycodone Screen Urine Methadone Screen Urine Fentanyl Screen Acetaminophen Ur Barbiturates Screen Ur Phencyclidine Scrn Ur Amphetamines Screen U Benzodiazepines Scrn Urine Cocaine Screen U Marijuana (THC) Screen Ethyl Alcohol < 10 04/12/24 04/12/24 02:50 05:52 MCV 85.9 MCH 28.3 MCHC 32.9 RDW 13.6 Plt Count 299 MPV 9.5 Immature Gran % (Auto) Neut % (Auto) Lymph % (Auto) [place] % (Auto) Eos % (Auto) Baso % (Auto) Lymph # (Auto) [place] # (Auto) Eos # (Auto) Baso # (Auto) Abs Immat Gran (auto) Absolute Neuts (auto) Absolute Nucleated RBC 0.000 Nucleated RBC % (auto) 0.0 PT INR APTT 30.5 D-Dimer High Sensitivty Anion Gap Estim Creat Clear Calc Estimated GFR Random Glucose Lactic Acid Calcium Magnesium Total Bilirubin Direct Bilirubin AST ALT Alkaline Phosphatase Ammonia Total Protein Albumin Lipase Beta HCG, Quant Urine Color Yellow Urine Appearance Clear Urine pH 8.0 Ur Specific [place] >= 1.030 H Urine Protein Negative Urine Glucose (UA) Negative Urine Ketones Trace Urine Blood Negative Urine Nitrite Negative Ur Leukocyte Esterase Negative Salicylates Urine Opiates Screen POSITIVE H Ur Buprenorphine Scrn Not Detected Ur Oxycodone Screen Not Detected Urine Methadone Screen Not Detected Urine Fentanyl Screen Not Detected Acetaminophen Ur Barbiturates Screen POSITIVE H Ur Phencyclidine Scrn Not Detected Ur Amphetamines Screen Not Detected U Benzodiazepines Scrn Not Detected Urine Cocaine Screen Not Detected U Marijuana (THC) Screen Not Detected Ethyl Alcohol <Alisa Mascorro PA-C - Last Filed: 04/12/24 06:47> Assessment and Plan (1) Constipation: Qualifiers: Constipation type: unspecified constipation type Qualified Code(s): K59.00 - Constipation, unspecified <Alisa Mascorro STIVEN - Last Filed: 04/12/24 06:47> Status: Acute <Alisa Mascorro ROBERTC - Last Filed: 04/12/24 06:47> (2) Chest pain: Status: Acute <Alisa Mascorro ROBERTC - Last Filed: 04/12/24 06:47> (3) Syncope: Status: Acute <Alisa Mascorro STIVEN - Last Filed: 04/12/24 06:47> (4) Obesity (BMI 30.0-34.9): Status: Chronic <Alisa Mascorro STIVEN - Last Filed: 04/12/24 06:47> (5) Elevated LFTs: Status: Acute <Alsia Mascorro STIVEN - Last Filed: 04/12/24 06:47> Patient is a 38-year-old female with a past medical history significant for mood disorder, and recent admission for colitis from , discharged with Levaquin and Flagyl, who presented to the ED again due to difficulty urinating, abdominal pain and rectal pain. Abdominal pain secondary to constipation - WBC normal, vital signs stable, no sepsis - recently recovered from colitis, on Flagyl and Levaquin - abdominopelvic CT without colitis but does show severe constipation - patient given lactulose, docusate and enema in ED, no response yet - add milk magnesia - has been able to urinate, UA negative - monitor CBC and BMP Chest pain with syncopal episode, likely vasovagal - brief episode of hypoxia - EKG and troponin negative - D-dimer elevated - CTA head/neck negative - V/Q scan to rule out PE - given therapeutic dose of Lovenox, continue lovenox 40mg Q24H pending VQ results - admit for observation Elevated LFTs - abdominopelvic CT without clear source - gallbladder ultrasound negative - monitor LFTs - follow-up outpatient Mood disorder - continue home meds Obesity - BMI 33.2 - weight loss encouraged Full code VTE prophylaxis: Lovenox Patient with abdominal pain secondary to constipation after recent episode of colitis, complicated by chest pain with syncopal episode, likely vasovagal, requiring admission for observation for further evaluation and monitoring. < Alisa Mascorro PA-C - Last Filed: 04/12/24 06:47> Patient is a 38-year-old female with a past medical history significant for mood disorder, and recent admission for colitis from , discharged with Levaquin and Flagyl, who presented to the ED again due to difficulty urinating, abdominal pain and rectal pain. Abdominal pain secondary to constipation - WBC normal, vital signs stable, no sepsis - recently recovered from colitis, on Flagyl and Levaquin - abdominopelvic CT without colitis but does show severe constipation - patient given lactulose, docusate and enema in ED, no response yet - add milk magnesia - has been able to urinate, UA negative - monitor CBC and BMP Chest pain with syncopal episode, likely vasovagal - brief episode of hypoxia - EKG and troponin negative - D-dimer elevated - CTA head/neck negative - V/Q scan to rule out PE - given therapeutic dose of Lovenox - admit for observation Elevated LFTs - abdominopelvic CT without clear source - gallbladder ultrasound negative - monitor LFTs - follow-up outpatient Mood disorder - continue home meds Obesity - BMI 33.2 - weight loss encouraged Full code VTE prophylaxis: Lovenox Patient with abdominal pain secondary to constipation after recent episode of colitis, complicated by chest pain with syncopal episode, likely vasovagal, requiring admission for observation for further evaluation and monitoring. < Loly Rueda MD - Last Filed: 04/12/24 06:50> Quality Stroke Does the patient have a stroke diagnosis?: No <Alisa Mascorro PA-C - Last Filed: 04/12/24 06:47> VTE Prior VTE?: No <Alisa Mascorro PA-C - Last Filed: 04/12/24 06:47> VTE Risk Level:: Medical - moderate - high <Alisa Mascorro PA-C - Last Filed: 04/12/24 06:47> VTE Device Contraindication: Treatment Not Indicated <Alisa Mascorro PA-C - Last Filed: 04/12/24 06:47> VTE Drug Contraindication: N/A - Med Ordered <Alisa Mascorro PA-C - Last Filed: 04/12/24 06:47>
[2024-04-12] MEDS: bisacodyL 5 MG TABLET.DR 10 MG PO (08:03)
[2024-04-12] MEDS: 0.9 % Sodium Chloride Flush 3 ML SYRINGE IVFLUSH ×2 (08:03→17:07)
--- NOTE | 2024-04-12 08:15 | PC.NURSE ---
pt is alert and oriented, skin appropriate for ethnicity, respirations even and unlabored, pt reports sever abd pain/rectum/headache
[2024-04-12] MEDS: HYDROmorphone HCl 0.5 MG/0.5 ML SYRINGE IVPUSH (08:24)
--- NOTE | 2024-04-12 09:37 | PHA.MEDREC ---
Addendum entered by Flo iDck RPh 04/12/24 10:07: Med rec was reviewed by [place]. Original Note: Pharmacy Consult ? Medication Reconciliation Pharmacy has completed the medication reconciliation. Spoke with patient and she confirmed she was just here 2 days ago and nothing has changed from then except that she was prescribed anti-biotic's and Docusate that she confirmed she started them the day she was discharged. She confirmed she took everything yesterday.
--- NOTE | 2024-04-12 11:24 | PM.GICN ---
History of Present Illness Data of Consult Service Date: 04/12/24 Primary Care Provider: Unknown Physician HPI Reason for consult: constipation 38-year-old female with a hx of mood disorder, who I am seeing for assessment for constipation. she had a recent admission for colitis and was discharged with Levaquin and Flagyl but then she presented to the ED with 24 hrs of difficult urine micturition and worsening burning diffuse abdominal and rectal pain 10/10 in severity without relieving or exacerbating factors. Her daughter as sick 1 week ago with a a diarrheal illness but got better in few days whereas her sx are similar but more persistent. She suffers migraines and these have also been worse overnight. SHe has been vomiting- no blood or coffee ground emesis. She also had a syncopal episode after being given a cocktail of meds , w/u was neg for pte. denies nsaid, and no drug or alcohol use. Review of Systems Review of Systems: Constitutional : No Weight loss, No Fever, No Chills ENT/Mouth : No sore throat, No Rhinorrhea Eyes: No Swelling, No Redness Cardiovascular : No Chest Pain, No SOB, No Edema Respiratory : No Cough, No Sputum, No Wheezing Gastrointestinal : see HPI Genitourinary : NO Dysuria, No Urinary Frequency, No Hematuria, No Urgency Musculoskeletal : + joint pain, No Myalgias, No Joint Swelling Skin : No Skin Lesions, No rash Neuro : No Weakness, No Numbness, No Dizziness, + Headache Psych : No Anxiety/Panic, No Depression Heme/Lymph: No Bruising, No Lymphadenopathy Endocrine : No Polyuria, No Polydipsia All other systems reviewed and are negative. [facility] Past Medical History Medical History Obesity (BMI 30.0-34.9) Diarrhea Hx of ectopic Depression Bipolar disorder Epigastric hernia Family History Pertinent family history: no fh of IBD or CrC but mother had colo polyps removed at young age Surgical History Surgical History Hx of tubal ligation History of loop electrical excision procedure (LEEP) Hx of laparoscopy History of Social History Social History Household Members: Family Housing: Apartment Are you a primary career development associate to a significant other at home: Yes (children-one is still a minor-18 year old will care for child day of .) Do you presently have visiting nurse or other home services: No Alcohol intake: former Patient Tobacco Use Status: Never used Tobacco Tobacco use type: Cigarette Cigarettes Per Day: 5 Years Smoked: 12 Second Hand Smoke Exposure: No service: No Meds Allergies Allergy/AdvReac Type Severity Reaction Status Date / Time latex [LATEX] Allergy Mild Hives Verified 04/11/24 15:19 Active Medications: Current Medications Acetaminophen (Acetaminophen 325 Mg Tablet) 650 mg PO Q6H PRN PRN Reason: Pain, Mild 1-3,fever,headache Calcium Carbonate (Calcium Carbonate 750 Mg Tab.Chew) 750 mg PO Q4H PRN PRN Reason: Heartburn Hydromorphone HCl (Hydromorphone Hcl 0.5 Mg/0.5 Ml Syringe) 0.5 mg IVPUSH Q3H PRN; Protocol PRN Reason: Pain, Severe (Pain Scale 7-10) Last Admin: 04/12/24 08:24 Dose: 0.5 mg Magnesium Hydroxide (Milk Of Magnesia 30 Ml Oral.Susp) 30 ml PO DAILY PRN PRN Reason: Constipation Melatonin (Melatonin 3 Mg Tablet) 6 mg PO BEDTIME PRN PRN Reason: Insomnia Ondansetron HCl (Ondansetron Hcl 4 Mg/2 Ml Vial) 4 mg IVPUSH Q8H PRN PRN Reason: Nausea and Vomiting Sodium Biphosphate/Sodium Phosphate (Sodium Phosphate,[place]du[place]-Dibasic 133 Ml Enema) 133 ml [place] ONCE PRN PRN Reason: Constipation Sodium Chloride (0.9 % Sodium Chloride Flush 3 Ml Syringe) 3 ml IVFSH [facility] Last Admin: 04/12/24 08:03 Dose: 3 ml Home Medications ?Medication ?Instructions ?Recorded ?Confirmed ?Last Taken ?Type aripiprazole 5 mg tablet 5 mg PO DAILY 04/08/24 04/12/24 04/11/24 History clonidine HCl 0.1 mg tablet 0.1 mg PO BEDTIME PRN Anxiety 04/08/24 04/12/24 Unknown History escitalopram oxalate 10 mg tablet 10 mg PO DAILY 04/08/24 04/12/24 04/11/24 History escitalopram oxalate 20 mg tablet 20 mg PO DAILY@1500 04/08/24 04/12/24 04/11/24 History gabapentin 400 mg capsule 800 mg PO TID 04/08/24 04/12/24 04/11/24 History lamotrigine 25 mg tablet 50 mg PO TID 04/08/24 04/12/24 04/11/24 History lorazepam 0.5 mg tablet 0.5 mg PO BID PRN Anxiety 04/08/24 04/12/24 Unknown History prazosin 5 mg capsule 5 mg PO BEDTIME 04/08/24 04/12/24 04/11/24 History quetiapine 200 mg tablet,extended 200 mg PO BEDTIME 04/08/24 04/12/24 04/11/24 History release 24 hr quetiapine 50 mg tablet,extended 50 mg PO DAILY 04/08/24 04/12/24 04/11/24 History release 24 hr Physical Exam Vital Signs: Vital Signs: Last Vital Signs Temp 98.2 F 04/12/24 08:06 Pulse 91 04/12/24 08:06 Resp 20 04/12/24 08:06 BP 155/90 H 04/12/24 08:06 Pulse Ox 99 04/12/24 08:06 O2 Del Method Room Air 04/12/24 08:06 BMI result Body Mass Index 33.2 EXAM: GENERAL: The patient is well developed and nontoxic. VITAL SIGNS:see workflow HEENT: Nonicteric sclerae, PERRLA, EOMI. Oropharynx clear. Moist mucous membranes. Conjunctivae appear well perfused. No thyroid mass. CHEST: Chest wall is nontender. HEART: Regular rate and rhythm without murmurs. LUNGS: Clear to auscultation bilaterally. ABDOMEN: Soft, positive bowel sounds, tender right side, no organomegaly.no flank tenderness SKIN: No rash, no excessive bruising, petechiae, or purpura. NEUROLOGIC: Cranial nerves II-XII intact without motor/sensory deficit. Psych: normal affect Results Labs 04/12/24 05:52 04/12/24 02:03 Labs: Short CBC 04/11/24 04/12/24 04/12/24 Range/Units 15:27 02:03 05:52 WBC 8.8 9.0 7.2 (4.8-10.8) X10*3/uL Hgb 12.1 12.8 10.8 L (12.0-16.0) g/dl Hct 36.1 L 37.0 32.8 L (37.0-47.0) % Plt Count 350 384 299 (160-400) X10*3/uL BMP 04/11/24 04/12/24 15:27 02:03 Sodium 141 141 Potassium 3.8 3.4 Chloride 108 108 Carbon Dioxide 27 21 L BUN 9 8 L Creatinine 0.76 0.73 Calcium 9.3 D 9.1 Liver Function 04/11/24 04/11/24 Range/Units 15:27 20:29 Total Bilirubin 0.5 0.4 (0.0-1.0) mg/dL Direct Bilirubin 0.2 (0.0-0.5) mg/dL AST 211 H 187 H (5-31) U/L ALT 317 H 299 H (0-31) U/L Alkaline Phosphatase 66 65 (39-117) U/L Albumin 4.1 4.0 (3.5-5.0) g/dL Urine 04/12/24 Range/Units 02:50 Urine Color Yellow Urine Appearance Clear Urine pH 8.0 (5.0-9.0) Ur Specific [place] >= 1.030 H (1.005-1.025) Urine Protein Negative (Neg-Trace) mg/dL Urine Glucose (UA) Negative (Negative) mg/dL Imaging CT scan - abdomen: Attestation: I personally reviewed and interpreted this imaging study as follows: (significant stool burden right colon) Assessment and Plan (1) Constipation: Qualifiers: Constipation type: unspecified constipation type Qualified Code(s): K59.00 - Constipation, unspecified Status: Acute Plan 1/ Abdominal pain and nausea, vomiting with severe constipation on right, 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
--- NOTE | 2024-04-12 13:07 | MHC.CM.PN ---
pt lives with children is independent has own ride nilo jacobson plan home n/s
[2024-04-12] MEDS: ondansetron HCL 4 MG/2 ML VIAL IVPUSH (13:16)
--- NOTE | 2024-04-12 13:27 | PC.NURSE ---
pt medicated with Zofran, pt vomited a medium amount
--- NOTE | 2024-04-12 13:47 | PM.EVENT ---
Event Note Date of Service: 04/12/24 Event Note: Patient is a 38-year-old female with a past medical history significant for mood disorder, and recent admission for colitis from , discharged with Levaquin and Flagyl, who presented to the ED again due to difficulty urinating, abdominal pain and rectal pain. Abdominal pain secondary to constipation recently recovered from colitis, on Flagyl and Levaquin abdominopelvic CT without colitis but does show severe constipation patient given lactulose, docusate and enema in ED, no response yet tanna evans inessa has been able to urinate, UA negative monitor CBC and BMP Chest pain with syncopal episode, likely vasovagal brief episode of hypoxia EKG and troponin negative D-dimer elevated CTA head/neck negative V/Q scan to rule out PE neg s/p therapeutic dose of Lovenox Elevated LFTs abdominopelvic CT without clear source gallbladder ultrasound negative monitor LFTs follow-up outpatient Mood disorder continue home meds Obesity BMI 33.2 weight loss encouraged Full code VTE prophylaxis: Lovenox Time Spent With Patient Time: Total time managing care of this patient today ____ minutes.
--- NOTE | 2024-04-12 17:05 | PC.NURSE ---
pt reports her nausea is better and pain at 3/10, still no bowel movement
[2024-04-12] MEDS: Dextrose 5 % and 0.9 % NaCl 1,000 ML 100 ML IVCONT (17:06)
[2024-04-12] MEDS: PEG 3350/Na Sulf,Bicarb,Cl/KCL 4,000 ML SOLN.RECON 4000 ML PO (18:04)
[2024-04-12 18:06] LABS: Thyroid Stimulating Hormone 6.73 uIU/mL (0.32-4.0)
[2024-04-12 19:23] LABS: Alanine Aminotransferase 218 U/L (0-31); Albumin Level 3.8 g/dL (3.5-5.0); Anion Gap 8 (12-20); Aspartate Amino Transferase 99 U/L (5-31); Bilirubin Total 0.3 mg/dL (0.0-1.0); Blood Urea Nitrogen 7 mg/dL (9-16); Calcium 8.6 mg/dL (8.4-10.2); Carbon Dioxide 25 mmol/L (22-29); Chloride 113 mmol/L (96-108); Estimated Glomerular Filt Rate > 60; Glucose Random 105 mg/dL (60-115); Potassium 3.8 mmol/L (3.3-5.1); Sodium 142 mmol/L (135-145); Total Protein 6.5 g/dL (6.5-8.0)
[2024-04-12 19:38] LABS: Ferritin 113 ng/mL (10-122); TSH reflex Free T4 2.97 uIU/mL (0.32-4.0)
[2024-04-12 19:52] LABS: Alkaline Phosphatase 55 U/L (39-117)
--- NOTE | 2024-04-12 20:01 | PC.NURSE ---
this rn assumed care of pt, pt ambulatory to bathroom with steady gait, vss. ice chips given per request.
--- NOTE | 2024-04-12 20:23 | PC.NURSE ---
pt refused night time doses of medication at this time, provider aware.
--- NOTE | 2024-04-12 22:01 | PC.NURSE ---
pt ambulatory to bathroom with steady gait, reports small amount of loose stool voided.
[2024-04-12] MEDS: LORazepam 2 MG/ML VIAL 1 MG IVPUSH (22:31)
[2024-04-13] MEDS: Dextrose 5 % and 0.9 % NaCl 1,000 ML 100 ML IVCONT ×2 (03:28→13:38)
[2024-04-13 04:08] VITALS: BP 103/67; PULSE 71; RESP 16; TEMP 36.6; O2SAT 99
[2024-04-13 04:16] LABS: MANUAL DIFF FLAG NO
[2024-04-13 04:17] LABS: Basophils Percent Auto 0.7 % (0-2); Eosinophils Absolute Auto 0.2 X10*3/uL (0.0-0.4); Eosinophils Percent Auto 3.7 % (0-4); Imm Gran Abs Auto 0.01 X10*3/uL (0.00-0.03); Imm Gran Pct Auto 0.2 % (0.0-0.4); Lymphocytes Absolute Auto 1.8 X10*3/uL (1.2-4.9); Lymphocytes Percent Auto 30.8 % (20-40); Mean Corpuscular HGB Conc 34.4 g/dl (31.0-35.0); Mean Corpuscular Volume 84.4 fL (80.0-98.0); Mean Platelet Volume 9.4 fL (9.4-12.3); Monocytes Absolute Auto 0.7 X10*3/uL (0.1-1.2); Monocytes Percent Auto 11.9 % (2-11); Neutrophils Absolute Auto 3.1 x10*3/uL (2.0-8.3); Neutrophils Percent Auto 52.7 % (45-73); Platelet Count 302 X10*3/uL (160-400); Red Blood Count 3.79 X10*6/uL (4.20-5.50); Red Cell Distribution Width 13.8 % (11.0-16.0); White Blood Count 5.9 X10*3/uL (4.8-10.8)
[2024-04-13 04:26] LABS: INTERNATIONAL NORM RATIO 1.1 (0.9-1.1); Prothrombin Time 12.3 SEC (10.9-12.4)
[2024-04-13 04:30] LABS: Anion Gap 9 (12-20); Blood Urea Nitrogen 6 mg/dL (9-16); Calcium 7.9 mg/dL (8.4-10.2); Carbon Dioxide 22 mmol/L (22-29); Chloride 114 mmol/L (96-108); Creatinine Clr Calc Pharmacy 127.8; Estimated Glomerular Filt Rate > 60; Glucose Random 114 mg/dL (60-115); Potassium 3.9 mmol/L (3.3-5.1); Sodium 141 mmol/L (135-145)
[2024-04-13 05:38] VITALS: BMI 33.7
[2024-04-13 05:55] VITALS: BP 109/59; PULSE 59; RESP 16; TEMP 36; O2SAT 97
[2024-04-13] MEDS: HYDROmorphone HCl 0.5 MG/0.5 ML SYRINGE IVPUSH (07:48)
[2024-04-13] MEDS: 0.9 % Sodium Chloride Flush 3 ML SYRINGE IVFLUSH ×2 (07:50→23:47)
[2024-04-13 07:59] VITALS: BP 116/71; PULSE 77; RESP 16; TEMP 36.2; O2SAT 97
--- NOTE | 2024-04-13 08:00 | PC.NURSE ---
Patient refused all scheduled morning medications. Education was provided about stopping meds and potential symtpoms. Pt still declined to take any medications
[2024-04-13] MEDS: polyethylene glycoL 3350 17 GM POWD.PACK PO (09:39)
[2024-04-13] MEDS: ondansetron HCL 4 MG/2 ML VIAL IVPUSH (11:57)
--- NOTE | 2024-04-13 14:30 | MHC.CM.PN ---
PT WAS MADE I/P STATUS. IMM DELIVERED.
--- NOTE | 2024-04-13 15:14 | P.PNIM_ITS ---
Subjective Subjective Date of Service: 04/13/24 Interval History: seen and examined this morning Follow-up for constipation Still reporting abdominal pain requiring IV narcotics. No bowel movement to date episode of vomiting Constitutional Constitutional: Denies chills and Denies fever(s) Physical Exam 2 Vital Signs: Vital Signs: Last Vital Signs Temp 97.2 F 04/13/24 07:59 Pulse 77 04/13/24 07:59 Resp 16 04/13/24 07:59 BP 116/71 04/13/24 07:59 Pulse Ox 97 04/13/24 07:59 O2 Del Method Room Air 04/13/24 07:59 BMI result Body Mass Index 33.7 Const: General: cooperative, no acute distress, alert and awake Nutritional Appearance: overweight Orientation/consciousness: patient oriented x3 Resp: Effort & Inspection: normal respiratory effort, able to speak in complete sentences, no respiratory distress and no use of accessory muscles Cardio: Rate: regular rate GI: Inspection: No distended Palpation (GI): Soft to palpation and nontender Neuro: General: patient oriented x3, moves all extremities and CN's II-XI intact bilaterally Objective Data Active Medications Acetaminophen (Acetaminophen 325 Mg Tablet) 650 mg PO Q6H PRN PRN Reason: Pain, Mild 1-3,fever,headache Acetaminophen/Butalbital/Caffeine (Butalb/Acetamin/Caff 50/325/40 Tablet) 1 tab PO Q4H PRN PRN Reason: Headache Aripiprazole (Aripiprazole 5 Mg Tablet) 5 mg PO DAILY [facility] Last Admin: 04/13/24 07:49 Dose: Not Given Documented By: MARY Non-Admin Reason: Patient Refused Bisacodyl (Bisacodyl 10 Mg Supp.Rect) 10 mg [place] BEDTIME PRN PRN Reason: Constipation Calcium Carbonate (Calcium Carbonate 750 Mg Tab.Chew) 750 mg PO Q4H PRN PRN Reason: Heartburn Clonidine HCl (Clonidine Hcl 0.1 Mg Tablet) 0.1 mg PO BEDTIME PRN; Protocol PRN Reason: Anxiety Docusate Sodium (Docusate Sodium 100 Mg Capsule) 100 mg PO BID PRN PRN Reason: constipation Escitalopram Oxalate (Escitalopram Oxalate 10 Mg Tablet) 10 mg PO DAILY [facility] Last Admin: 04/13/24 07:48 Dose: Not Given Documented By: MARY Non-Admin Reason: Patient Refused Escitalopram Oxalate (Escitalopram Oxalate 20 Mg Tablet) 20 mg PO DAILY@1500 [facility] Last Admin: 04/13/24 14:25 Dose: Not Given Documented By: MARY Non-Admin Reason: Patient Refused Gabapentin (Gabapentin 400 Mg Capsule) 800 mg PO TID [facility] Last Admin: 04/13/24 14:25 Dose: Not Given Documented By: MARY Non-Admin Reason: Patient Refused Hydromorphone HCl (Hydromorphone Hcl 0.5 Mg/0.5 Ml Syringe) 0.25 mg IVPUSH Q6H PRN; Protocol PRN Reason: Pain, Severe (Pain Scale 7-10) Dextrose/Sodium Chloride (D5ns) 1,000 mls @ 100 mls/hr IVCONT .Q10H [facility] Last Admin: 04/13/24 13:38 Dose: 100 mls/hr Documented By: MARY Lamotrigine (Lamotrigine 25 Mg Tablet) 50 mg PO TID [facility] Last Admin: 04/13/24 14:25 Dose: Not Given Documented By: MARY Non-Admin Reason: Patient Refused Lorazepam (Lorazepam 0.5 Mg Tablet) 0.5 mg PO BID PRN PRN Reason: Anxiety Magnesium Hydroxide (Milk Of Magnesia 30 Ml Oral.Susp) 30 ml PO DAILY PRN PRN Reason: Constipation Melatonin (Melatonin 3 Mg Tablet) 6 mg PO BEDTIME PRN PRN Reason: Insomnia Ondansetron HCl (Ondansetron Hcl 4 Mg/2 Ml Vial) 4 mg IVPUSH Q8H PRN PRN Reason: Nausea and Vomiting Last Admin: 04/13/24 11:57 Dose: 4 mg Documented By: MARY Polyethylene Glycol (Polyethylene Glycol 3350 17 Gm Powd.Pack) 17 gm PO BID [facility] Last Admin: 04/13/24 09:39 Dose: 17 gm Documented By: MARY Prazosin HCl (Prazosin Hcl 5 Mg Capsule) 5 mg PO BEDTIME [facility]; Protocol Last Admin: 04/12/24 20:23 Dose: Not Given Documented By: SUNNY Non-Admin Reason: Patient Refused Quetiapine Fumarate (Quetiapine Fumarate 25 Mg Tablet) 25 mg PO BID [facility] Last Admin: 04/13/24 07:49 Dose: Not Given Documented By: MARY Non-Admin Reason: Patient Refused Quetiapine Fumarate (Quetiapine Fumarate 100 Mg Tablet) 100 mg PO BID [facility] Last Admin: 04/13/24 07:49 Dose: Not Given Documented By: MARY Non-Admin Reason: Patient Refused Sodium Biphosphate/Sodium Phosphate (Sodium Phosphate,[place]-Dibasic 133 Ml Enema) 133 ml MN ONCE PRN PRN Reason: Constipation Sodium Chloride (0.9 % Sodium Chloride Flush 3 Ml Syringe) 3 ml IVFLUSH QSHIFT [facility] Last Admin: 04/13/24 07:50 Dose: 3 ml Documented By: MARY Labs 04/13/24 04:11 04/13/24 04:11 Labs: Laboratory Results - last 24 hr 04/12/24 04/12/24 04/12/24 02:03 18:50 18:50 MCV MCH MCHC RDW Plt Count MPV Immature Gran % (Auto) Neut % (Auto) Lymph % (Auto) [place] % (Auto) Eos % (Auto) Baso % (Auto) Lymph # (Auto) [place] # (Auto) Eos # (Auto) Baso # (Auto) Abs Immat Gran (auto) Absolute Neuts (auto) Absolute Nucleated RBC Nucleated RBC % (auto) PT INR Anion Gap Cancelled 8 L Estim Creat Clear Calc Cancelled Estimated GFR Random Glucose Calcium Ferritin Total Bilirubin AST ALT Alkaline Phosphatase Total Creatine Kinase 25 L Total Protein Albumin TSH 6.73 H 04/12/24 04/12/24 04/12/24 18:50 18:50 18:50 MCV MCH MCHC RDW Plt Count MPV Immature Gran % (Auto) Neut % (Auto) Lymph % (Auto) [place] % (Auto) Eos % (Auto) Baso % (Auto) Lymph # (Auto) [place] # (Auto) Eos # (Auto) Baso # (Auto) Abs Immat Gran (auto) Absolute Neuts (auto) Absolute Nucleated RBC Nucleated RBC % (auto) PT INR Anion Gap Estim Creat Clear Calc 104.0 Estimated GFR Cancelled > 60 Random Glucose Cancelled 105 Calcium Cancelled Ferritin Total Bilirubin AST ALT Alkaline Phosphatase Total Creatine Kinase Total Protein Albumin TSH 04/12/24 04/12/24 04/12/24 18:50 18:50 18:50 MCV MCH MCHC RDW Plt Count MPV Immature Gran % (Auto) Neut % (Auto) Lymph % (Auto) [place] % (Auto) Eos % (Auto) Baso % (Auto) Lymph # (Auto) [place] # (Auto) Eos # (Auto) Baso # (Auto) Abs Immat Gran (auto) Absolute Neuts (auto) Absolute Nucleated RBC Nucleated RBC % (auto) PT INR Anion Gap Estim Creat Clear Calc Estimated GFR Random Glucose Calcium 8.6 Ferritin 113 Total Bilirubin Cancelled 0.3 AST Cancelled 99 H ALT Cancelled Alkaline Phosphatase Total Creatine Kinase Total Protein Albumin TSH 04/12/24 04/12/24 04/12/24 18:50 18:50 18:50 MCV MCH MCHC RDW Plt Count MPV Immature Gran % (Auto) Neut % (Auto) Lymph % (Auto) [place] % (Auto) Eos % (Auto) Baso % (Auto) Lymph # (Auto) [place] # (Auto) Eos # (Auto) Baso # (Auto) Abs Immat Gran (auto) Absolute Neuts (auto) Absolute Nucleated RBC Nucleated RBC % (auto) PT INR Anion Gap Estim Creat Clear Calc Estimated GFR Random Glucose Calcium Ferritin Total Bilirubin AST ALT 218 H Alkaline Phosphatase Cancelled 55 Total Creatine Kinase Cancelled 27 Total Protein Cancelled Albumin TSH 04/12/24 04/12/24 04/13/24 18:50 18:50 04:11 MCV 84.4 MCH 29.0 MCHC 34.4 RDW 13.8 Plt Count 302 MPV 9.4 Immature Gran % (Auto) 0.2 Neut % (Auto) 52.7 Lymph % (Auto) 30.8 [place] % (Auto) 11.9 H Eos % (Auto) 3.7 Baso % (Auto) 0.7 Lymph # (Auto) 1.8 [place] # (Auto) 0.7 Eos # (Auto) 0.2 Baso # (Auto) 0.0 Abs Immat Gran (auto) 0.01 Absolute Neuts (auto) 3.1 Absolute Nucleated RBC 0.000 Nucleated RBC % (auto) 0.0 PT 12.3 INR 1.1 Anion Gap 9 L Estim Creat Clear Calc 127.8 Estimated GFR > 60 Random Glucose 114 Calcium 7.9 L D Ferritin Total Bilirubin AST ALT Alkaline Phosphatase Total Creatine Kinase Total Protein 6.5 Albumin Cancelled 3.8 TSH 2.97 Assessment and Plan (1) Elevated LFTs: Status: Acute (2) Constipation: Status: Acute Plan Patient is a 38-year-old female with a past medical history significant for mood disorder, and recent admission for colitis from , discharged with Levaquin and Flagyl, who presented to the ED again due to difficulty urinating, abdominal pain and rectal pain. Abdominal pain secondary to constipation recently recovered from colitis abdominopelvic CT without colitis but does show severe constipation patient given lactulose, docusate and enema in ED, no response yet milk inessa evans has been able to urinate, UA negative monitor CBC and BMP Chest pain with syncopal episode, likely vasovagal brief episode of hypoxia EKG and troponin negative D-dimer elevated but VQ scan negative CTA head/neck negative Elevated LFTs abdominopelvic CT without clear source gallbladder ultrasound negative trending down Mood disorder continue home meds Obesity BMI 33.2 weight loss encouraged Full code VTE prophylaxis: Lovenox requires ongoing inpatient stay for management of severe abdominal pain requiring iv narcotics, constipation without BM and inability to take po Quality Stroke Does the patient have a stroke diagnosis?: No VTE Prior VTE?: No VTE Risk Level:: Medical - moderate - high VTE Device Contraindication: Treatment Not Indicated VTE Drug Contraindication: N/A - Med Ordered
[2024-04-13 16:11] VITALS: BP 112/70; PULSE 63; RESP 18; TEMP 36.4; O2SAT 98
--- NOTE | 2024-04-13 17:05 | P.DS_ITS ---
DS: Providers Provider Date of Service: 04/13/24 Date of admission: 04/13/24 14:15 Date of discharge: 04/13/24 Primary care physician: Unknown Physician Consults: 04/12/24 08:26 Consult to Gastroenterology Routine Consulting Provider: Theresa Ramos Reason for consultation: severe constipation Attending physician on discharge: Ward Long Discharging clinician: Ema Birmingham DS: Diagnosis Discharge Diagnosis (1) Elevated LFTs: Status: Acute (2) Constipation: Status: Acute DS: Summary Hospital Course Hospital Course: From H&P on the day of admission Patient is a 38-year-old female with a past medical history significant for mood disorder, and recent admission for colitis from , discharged with Levaquin and Flagyl, who presented to the ED again due to difficulty urinating, abdominal pain and rectal pain. She described her abdominal pain is burning, last p.m. was yesterday. She reported she was unable to urinate since yesterday as well. Since being in the ED she was able to urinate and was given multiple medications including lactulose, docusate and an enema for her constipation and has yet to have a bowel movement. Around 01:00 she did experience chest pain, nausea and a syncopal episode. EKG and troponin were negative. D-dimer was elevated. Abdominal pain secondary to constipation recently recovered from colitis, on Flagyl and Levaquin. abdominopelvic CT without colitis but does show severe constipation. seen by GI, treated with go lightly- had bowel movement, requested diet and discharged home. Can complete course of antibiotics. Gi recommends outpatient colonoscopy. Chest pain with syncopal episode, likely vasovagal brief episode of hypoxia. EKG and troponin negative x2 . D-dimer elevated but VQ scan negative. CTA head/neck negative. she was monitored for greater then 24 hours and No events on monitor. no further events during hospitalization. Elevated LFTs abdominopelvic CT without clear source. gallbladder ultrasound negative. LFTs trending down. follow outpatient. Obesity BMI 33.2 weight loss encouraged Time Attestation Discharge Coordination Time (in mins): 30 Quality: Safe Use of Opioids Does Pt have an Active Cancer Diagnosis on the Problem List?: No Quality: Stroke Does the patient have a stroke diagnosis?: No Physical Exam Vital Signs: Vital Signs: Last Vital Signs Temp 97.5 F 04/13/24 16:11 Pulse 63 04/13/24 16:11 Resp 18 04/13/24 16:11 BP 112/70 04/13/24 16:11 Pulse Ox 98 04/13/24 16:11 O2 Del Method Room Air 04/13/24 16:11 BMI result Body Mass Index 33.7 Const: General: cooperative, no acute distress, alert and awake Nutritional Appearance: overweight Orientation/consciousness: patient oriented x3 Resp: Effort & Inspection: normal respiratory effort, able to speak in complete sentences, no respiratory distress and no use of accessory muscles Cardio: Rate: regular rate GI: Inspection: No distended Palpation (GI): Soft to palpation and nontender Neuro: General: patient oriented x3, moves all extremities and CN's II-XI intact bilaterally DS: Data Data Completed and Pending Labs on day of discharge: Laboratory Results - last 24 hr 04/12/24 04/12/24 04/12/24 02:03 18:50 18:50 WBC RBC Hgb Hct MCV MCH MCHC RDW Plt Count MPV Immature Gran % (Auto) Neut % (Auto) Lymph % (Auto) [place] % (Auto) Eos % (Auto) Baso % (Auto) Lymph # (Auto) [place] # (Auto) Eos # (Auto) Baso # (Auto) Abs Immat Gran (auto) Absolute Neuts (auto) Absolute Nucleated RBC Nucleated RBC % (auto) PT INR Sodium Cancelled 142 Potassium Cancelled Chloride Carbon Dioxide Anion Gap BUN Creatinine Estim Creat Clear Calc Estimated GFR Random Glucose Calcium Ferritin Total Bilirubin AST ALT Alkaline Phosphatase Total Creatine Kinase 25 L Total Protein Albumin TSH 6.73 H 04/12/24 04/12/24 04/12/24 18:50 18:50 18:50 WBC RBC Hgb Hct MCV MCH MCHC RDW Plt Count MPV Immature Gran % (Auto) Neut % (Auto) Lymph % (Auto) [place] % (Auto) Eos % (Auto) Baso % (Auto) Lymph # (Auto) [place] # (Auto) Eos # (Auto) Baso # (Auto) Abs Immat Gran (auto) Absolute Neuts (auto) Absolute Nucleated RBC Nucleated RBC % (auto) PT INR Sodium Potassium 3.8 Chloride Cancelled 113 H Carbon Dioxide Cancelled 25 Anion Gap Cancelled BUN Creatinine Estim Creat Clear Calc Estimated GFR Random Glucose Calcium Ferritin Total Bilirubin AST ALT Alkaline Phosphatase Total Creatine Kinase Total Protein Albumin TSH 04/12/24 04/12/24 04/12/24 18:50 18:50 18:50 WBC RBC Hgb Hct MCV MCH MCHC RDW Plt Count MPV Immature Gran % (Auto) Neut % (Auto) Lymph % (Auto) [place] % (Auto) Eos % (Auto) Baso % (Auto) Lymph # (Auto) [place] # (Auto) Eos # (Auto) Baso # (Auto) Abs Immat Gran (auto) Absolute Neuts (auto) Absolute Nucleated RBC Nucleated RBC % (auto) PT INR Sodium Potassium Chloride Carbon Dioxide Anion Gap 8 L BUN Cancelled 7 L Creatinine Cancelled 0.70 Estim Creat Clear Calc Cancelled Estimated GFR Random Glucose Calcium Ferritin Total Bilirubin AST ALT Alkaline Phosphatase Total Creatine Kinase Total Protein Albumin TSH 04/12/24 04/12/24 04/12/24 18:50 18:50 18:50 WBC RBC Hgb Hct MCV MCH MCHC RDW Plt Count MPV Immature Gran % (Auto) Neut % (Auto) Lymph % (Auto) [place] % (Auto) Eos % (Auto) Baso % (Auto) Lymph # (Auto) [place] # (Auto) Eos # (Auto) Baso # (Auto) Abs Immat Gran (auto) Absolute Neuts (auto) Absolute Nucleated RBC Nucleated RBC % (auto) PT INR Sodium Potassium Chloride Carbon Dioxide Anion Gap BUN Creatinine Estim Creat Clear Calc 104.0 Estimated GFR Cancelled > 60 Random Glucose Cancelled 105 Calcium Cancelled Ferritin Total Bilirubin AST ALT Alkaline Phosphatase Total Creatine Kinase Total Protein Albumin TSH 04/12/24 04/12/24 04/12/24 18:50 18:50 18:50 WBC RBC Hgb Hct MCV MCH MCHC RDW Plt Count MPV Immature Gran % (Auto) Neut % (Auto) Lymph % (Auto) [place] % (Auto) Eos % (Auto) Baso % (Auto) Lymph # (Auto) [place] # (Auto) Eos # (Auto) Baso # (Auto) Abs Immat Gran (auto) Absolute Neuts (auto) Absolute Nucleated RBC Nucleated RBC % (auto) PT INR Sodium Potassium Chloride Carbon Dioxide Anion Gap BUN Creatinine Estim Creat Clear Calc Estimated GFR Random Glucose Calcium 8.6 Ferritin 113 Total Bilirubin Cancelled 0.3 AST Cancelled 99 H ALT Cancelled Alkaline Phosphatase Total Creatine Kinase Total Protein Albumin TSH 04/12/24 04/12/24 04/12/24 18:50 18:50 18:50 WBC RBC Hgb Hct MCV MCH MCHC RDW Plt Count MPV Immature Gran % (Auto) Neut % (Auto) Lymph % (Auto) [place] % (Auto) Eos % (Auto) Baso % (Auto) Lymph # (Auto) [place] # (Auto) Eos # (Auto) Baso # (Auto) Abs Immat Gran (auto) Absolute Neuts (auto) Absolute Nucleated RBC Nucleated RBC % (auto) PT INR Sodium Potassium Chloride Carbon Dioxide Anion Gap BUN Creatinine Estim Creat Clear Calc Estimated GFR Random Glucose Calcium Ferritin Total Bilirubin AST ALT 218 H Alkaline Phosphatase Cancelled 55 Total Creatine Kinase Cancelled 27 Total Protein Cancelled Albumin [facility] 04/12/24 04/12/24 04/13/24 18:50 18:50 04:11 WBC 5.9 RBC 3.79 L Hgb 11.0 L Hct 32.0 L MCV 84.4 MCH 29.0 MCHC 34.4 RDW 13.8 Plt Count 302 MPV 9.4 Immature Gran % (Auto) 0.2 Neut % (Auto) 52.7 Lymph % (Auto) 30.8 [place] % (Auto) 11.9 H Eos % (Auto) 3.7 Baso % (Auto) 0.7 Lymph # (Auto) 1.8 [place] # (Auto) 0.7 Eos # (Auto) 0.2 Baso # (Auto) 0.0 Abs Immat Gran (auto) 0.01 Absolute Neuts (auto) 3.1 Absolute Nucleated RBC 0.000 Nucleated RBC % (auto) 0.0 PT 12.3 INR 1.1 Sodium 141 Potassium 3.9 Chloride 114 H Carbon Dioxide 22 Anion Gap 9 L BUN 6 L Creatinine 0.57 Estim Creat Clear Calc 127.8 Estimated GFR > 60 Random Glucose 114 Calcium 7.9 L D Ferritin Total Bilirubin AST ALT Alkaline Phosphatase Total Creatine Kinase Total Protein 6.5 Albumin Cancelled 3.8 TSH 2.97 Discharge Plan Discharge Anticipated Discharge Date/Time: 04/13/24 17:13 Patient Disposition: Home, Self-Care Discharge Diagnosis: constipation Referrals: Theresa Ramos MD [Physician] - 1 Week Physician,Unknown J [Primary Care Provider] - 1 Week Discharge Medications: New polyethylene glycol 3350 17 gram Powder In Packet 17 g PO DAILY PRN (Reason: constipation) Qty: 30 0RF Continued clonidine HCl 0.1 mg tablet 0.1 mg PO BEDTIME PRN (Reason: Anxiety) gabapentin 400 mg capsule 800 mg PO TID lamotrigine 25 mg tablet 50 mg PO TID prazosin 5 mg capsule 5 mg PO BEDTIME lorazepam 0.5 mg tablet 0.5 mg PO BID PRN (Reason: Anxiety) escitalopram oxalate 10 mg tablet 10 mg PO DAILY escitalopram oxalate 20 mg tablet 20 mg PO DAILY@1500 aripiprazole 5 mg tablet 5 mg PO DAILY quetiapine 200 mg tablet extended release 24 hr 200 mg PO BEDTIME quetiapine 50 mg tablet extended release 24 hr 50 mg PO DAILY levofloxacin 500 mg tablet 500 mg PO DAILY Qty: 5 0RF metronidazole 500 mg tablet 500 mg PO Q8H 5 Days Qty: 10 0RF cszrwlsihs-xcxftmwsqqrax-bzny 50-325-40 mg Tablet 1 tab PO Q4H PRN (Reason: Headache) Qty: 10 0RF docusate sodium [Colace] 100 mg capsule 100 mg PO BID PRN (Reason: constipation) Qty: 20 0RF Discharge Orders: Discharge Order (Routine); Ordered 04/13/24 Ordered By: Ema Birmingham Activity on Discharge: As tolerated Stand Alone Forms: Patient Portal Discharge page Print Language: [place] Care Plan Goals: see below Health Concerns: constipation- resolved recent colitis brief episode of hypoxia - resolve likely vasovagal syncope elevated LFTs Plan of Treatment: can use MiraLax daily as needed for constipation call to schedule outpatient follow-up with primary care provider liver function tests remain abnormal although have trended down - recommend outpatient follow up with PCP - would recommend repeating in one week call GI to schedule possible outpatient colonoscopy Assessment: see discharge summary
[2024-04-13 19:14] VITALS: BP 103/63; PULSE 71; RESP 18; TEMP 36.1; O2SAT 98
[2024-04-13] MEDS: Melatonin 3 MG TABLET 6 MG PO (19:17)
[2024-04-13] MEDS: LORazepam 0.5 MG TABLET PO (19:17)
--- NOTE | 2024-04-13 20:38 | PC.NURSE ---
Patient requesting to have iv fluids paused, patient reporting she feels iv fluids are helping her urinate and she wants to see if she can urinate on her own. Patient also refusing all bedtime medication, reporting some abdominal pain and feeling nervous medications are going to cause pain. Dr. Rueda notified.
[2024-04-13 23:46] VITALS: BP 101/53; PULSE 74; RESP 16; TEMP 36; O2SAT 97
[2024-04-14 08:00] VITALS: BP 126/68; PULSE 79; RESP 18; TEMP 36.7; O2SAT 96
--- NOTE | 2024-04-14 08:33 | MHC.CM.PN ---
Patient medically cleared for dc home self care via private transport.
[2024-04-15 13:33] LABS: Transglutaminase IgA <1.0 U/mL
== END 2024-04-14 09:44 | disposition home or self-care (01) | DRG 392 ==
LOC: HO.ED 04-12 04:59 → HO.EDOVER 04-12 06:38 → HO.S3 04-13 04:58
PROVIDERS: Internal Medicine Gastroenterology; Registered Nurse Emergency; Student in an Organized Health Care Education/Training Program; Admitting Provider Student in an Organized Health Care Education/Training Program; Emergency Provider Emergency Medicine Emergency Medical Services; PCP Internal Medicine; Visit Provider Physician Assistant Medical
DX: K59.00 Constipation, unspecified (principal); E66.9 Obesity, unspecified; Z68.33 Body mass index [BMI] 33.0-33.9, adult; F39 Unspecified mood [affective] disorder; R55 Syncope and collapse; Z79.899 Other long term (current) drug therapy
CPT/HCPCS: 36415; 70496; 70498; 71045; 74177; 76705; 78580; 80048; 80053; 80076; 80143; 80179; 80307; 81003; 82140; 82550; 82728; 83605; 83690; 83735; 84443; 84484; 84702; 85025; 85027; 85379; 85610; 85730; 86364; 93005; 99221; 99285; A9540; J1171; J1650; J2060; J2270; J2405; Q9967

== ENCOUNTER → 2024-04-11 20:21 | Outpatient (BNV) | payer MEDICARE, SELFPAY | PROVIDERS: Emergency Provider Student in an Organized Health Care Education/Training Program; Visit Provider Radiology Neuroradiology | DX: R74.01 Elevation of levels of liver transaminase levels (principal); R10.11 Right upper quadrant pain; R33.9 Retention of urine, unspecified | CPT/HCPCS: 74177; 76705 ==

== ENCOUNTER → 2024-04-11 20:22 | Outpatient (BNV) | payer MEDICARE, SELFPAY | PROVIDERS: Admitting Provider Student in an Organized Health Care Education/Training Program; Emergency Provider Emergency Medicine Emergency Medical Services; Visit Provider Internal Medicine Cardiovascular Disease | DX: R07.9 Chest pain, unspecified (principal) | CPT/HCPCS: 93010 ==

== ENCOUNTER → 2024-04-12 01:10 | Outpatient (BNV) | payer MEDICARE, SELFPAY | PROVIDERS: Admitting Provider Student in an Organized Health Care Education/Training Program; Emergency Provider Emergency Medicine Emergency Medical Services; Visit Provider Internal Medicine Cardiovascular Disease | DX: R07.9 Chest pain, unspecified (principal) | CPT/HCPCS: 93010 ==

== ENCOUNTER → 2024-04-12 01:31 | Outpatient (BNV) | payer MEDICARE, SELFPAY | PROVIDERS: Emergency Provider Student in an Organized Health Care Education/Training Program; Visit Provider Radiology Diagnostic Radiology | DX: R41.82 Altered mental status, unspecified (principal); R06.02 Shortness of breath; R91.8 Other nonspecific abnormal finding of lung field; R07.9 Chest pain, unspecified; R09.02 Hypoxemia | CPT/HCPCS: 70496; 70498; 71045; 78580 ==

== ENCOUNTER → 2024-04-12 06:35 | Outpatient (BNV) | payer MEDICARE, SELFPAY | PROVIDERS: Admitting Provider Student in an Organized Health Care Education/Training Program; Emergency Provider Emergency Medicine Emergency Medical Services; Visit Provider Internal Medicine Gastroenterology | DX: K59.00 Constipation, unspecified (principal) | CPT/HCPCS: 99223 ==

== ENCOUNTER → 2024-04-12 06:35 | Outpatient (BNV) | payer MEDICARE, SELFPAY | PROVIDERS: Admitting Provider Student in an Organized Health Care Education/Training Program; Emergency Provider Emergency Medicine Emergency Medical Services; Visit Provider Physician Assistant | DX: K59.00 Constipation, unspecified (principal); R07.9 Chest pain, unspecified; R55 Syncope and collapse; E66.811 Obesity, class 1; R79.89 Other specified abnormal findings of blood chemistry | CPT/HCPCS: 99223; 99232; 99499 ==

== ENCOUNTER 2024-08-16 14:56 | Outpatient (AMB) | payer MEDICARE, MEDICAID, SELFPAY ==
[2024-08-16 14:59] VITALS: BP 140/76; PULSE 86; O2SAT 98; BMI 33.6
--- NOTE | 2024-08-16 14:59 | A.OFFVIS_ITS ---
Vital Signs 08/16/24 14:59 Height 5 ft 1 in Weight 178 lb BMI 33.6 BP 140/76 H Blood Pressure Location Rt brachial Position Sitting Pulse 86 Pulse Source Pulse Oximeter Pulse Oximetry (%) 98 Oxygen Delivery Method Room Air Intake Visit Reasons: ENTERPRISE ACCOUNT MANAGER, hx of TA, hemorrhoids. Intake Note: NEW PATIENT for rescreening colo. Last via [facility] March 2021. Early screeni ng per [facility] ([facility] - Mother). Constipation mgmt. Chief Complaint; Constipation currently tx with miralax daily and colace BID without much relief. N+V intermittently. Hx of TA. Pt also expressing concerns pertaining to possibly needing hemorrhoidectomy Powerhouse Electrician Required: No Accompanied by: Self / Same As Patient Allergies latex (LATEX) Allergy (Mild, Verified 08/16/24 15:17) Hives HPI HPI ENTERPRISE ACCOUNT MANAGER, hx of TA, hemorrhoids.: Details: 38-year-old female with past medical history of transaminitis, syncope, constipation, obesity, colitis, epigastric hernia is here today for initial consultation. Patient reports she had colonoscopy he years ago in [facility]. Admitted few months ago with colitis. Patient reports continues with constipation. No longer has Dulcolax, MiraLax does not help. Epigastric pain and nausea. Patient also reports going under lots of stress. Patient is tearful without explaining the actual reason why. Patient reports rectal pain and hemorrhoids. Patient reports she hematochezia and occasional melena. Patient denies unintentional weight loss. Patient reports continued constipation specially in the past few weeks. Her Consult with Dr. Ramos 04/09/2024 from [facility] [place] HPI Reason for consult: Colitis 38 YF with mood disorder seen at [facility] ED on 04/08/24 with diarrhea, generalized abdominal pain and vomiting x1 week. Pt states her symptoms started on 03/28/24 a few hrs after she had a Cheese Burger at a [facility]. Her 15 yr old daughter had a different cheese burger and developed the same symptoms. Diarrhea consisted of loose to watery stools > 5 BMs per day. Pt denies noticing any blood or mucous in the stool. Diarrhea started improving and on 04/05/24, she noted GARCIA with nausea and vomting and she was unable to keep anything down on 04/06 and 04/07 Denies having any BM today. She ate rice, chicken and green beans today and noted an increase in abdominal pain 10 to 15 min later. Pt complains of cramping and burning generalized abd pain - worse in left lower quadrant. Pt denies recent antibiotics or travel. She denies any fever or chills. She denies any hematemesis, hematochezia or melena. Last episode of diarrhea was on 07/06/24. She also reports some urinary frequency recently which has improved slightly today. Pt has a hx of migraine HAs in the past and present symptoms are similar to an episode of Migraine GARCIA Patient denies smoking or ETOH abuse. She denies known family history of IBD or GI malignancy. Pt's Mom had precancerous polyps removed during colonoscopy in her late 40's. 04/08/[address] SCAN SHOWED: 1. Colonic thickening, consistent with ischemia, infection, versus inflammation. Follow-up colonoscopy is recommended to exclude underlying neoplasm. 2. Trace right pleural effusion. RECOMMENDATIONS: 1. Agree with IV antibiotics and aneti-emetics 2. Stool for GI panel if pt is able to give a specimen 3. Full liquid diet x 24 hrs and if pt is able to tolerate it without abdominal pain then diet can be advanced. 4. Pt can be scheduled for a colonoscopy as an outpatient if her symptoms do not resolve in 1-[address] GONSALES 04/12/2024 Plan 1/ Abdominal pain and nausea, vomiting with severe constipation on right, maybe due to postinfectious IBS-C, less likely obstructive lesion, IBD, gb inertia or gallstones plan; 1/ can add golyte and dulcolax and enema if needed 2/ check ck given high ast,alt, as well as tSH and celiac panel 3/colonoscopy either this admission or early outpatient depending on clinical course 4/ trend lft, if getting higher then hep serologies, chck acetaminophen level, Prabha, AMA, IgG level, PFSH Medical History (Updated 08/16/24 @ 21:10 by Lexus Lira [facility]-) Hemorrhoid Obesity (BMI 30.0-34.9) Diarrhea Hx of ectopic Depression Bipolar disorder Epigastric hernia Surgical History Hx of tubal ligation History of loop electrical excision procedure (LEEP) Hx of laparoscopy History of Social History Household Members: Family Housing: Apartment Are you a primary career services representative to a significant other at home: Yes (children-one is still a minor-18 year old will care for child day of surg.) Do you presently have visiting nurse or other home services: No Alcohol intake: former Patient Tobacco Use Status: Never used Tobacco Tobacco use type: Cigarette Cigarettes Per Day: 5 Years Smoked: 12 Second Hand Smoke Exposure: No service: No Physical Exam Vital Signs: Last Vital Signs Pulse 86 08/16/24 14:59 BP 140/76 H 08/16/24 14:59 Pulse Ox 98 08/16/24 14:59 Oxygen Delivery Method Room Air 08/16/24 14:59 BMI result Body Mass Index 33.6 Const General: healthy appearing, no acute distress and well developed Nutritional Appearance: well nourished and obese Orientation/consciousness: patient oriented x3 Resp Effort & Inspection: normal respiratory effort, able to speak in complete sentences, no tracheal deviation and symmetric chest movement Auscultation: clear to auscultation bilaterally Cardio Rate: regular rate GI Inspection: Yes normal to inspection, No distended and Yes obesity Palpation (GI): Soft to palpation, not firm, nontender and No hepatosplenomegaly present Auscultation: normal bowel sounds General: Yes no CVA tenderness Back/Spine/Pelvis Back: no CVA tenderness Skin General skin exam: elasticity normal, turgor normal and dry skin Neuro General: patient oriented x3 Psych Appearance: grossly normal Mental Status: mental status grossly normal Affect: Other affect and mood findings present (Tearful) Assessment & Plan Assessment & Plan (1) Elevated LFTs: Code(s): R79.89 - Other specified abnormal findings of blood chemistry Category: Medical (2) Colitis: Code(s): K52.9 - Noninfective gastroenteritis and colitis, unspecified Category: Medical (3) Constipation: Code(s): K59.00 - Constipation, unspecified Category: Medical Qualifiers: Constipation type: unspecified constipation type Qualified Code(s): K59.00 - Constipation, unspecified (4) Epigastric hernia: Code(s): K43.9 - Ventral hernia without obstruction or gangrene Category: Medical (5) Hemorrhoid: Code(s): K64.9 - Unspecified hemorrhoids Category: Medical Qualifiers: Hemorrhoid type: unspecified Qualified Code(s): K64.9 - Unspecified hemorrhoids Plan Patient will take Dulcolax daily. Increase fluid intake and activity to promote better bowel motility. Patient will be sent for colonoscopy. Appointment will be made with General surgery to evaluate for hemorrhoids. Message sent to Surgical schedules to book patient for procedure. What to expect before during and after procedure discussed with patient. Stressed importance of clear liquid diet and good bowel prep after the procedure. I will see her after the procedure, sooner on as needed basis. Patient will try Proctosol to help shrink her hemorrhoids. Patient is agreeable to current plan of care and verbalizes understanding of instructions. She was given the opportunity to ask questions and all questions answered. Thank you for allowing me to participate in her care Orders: Referrals General Surgery Referral K64.9 - Unspecified hemorrhoids Medications: New polyethylene glycol 3350 (Miralax) As directed by gastroenterology department at [facility] 238 grams PO ONCE 238 grams 0RF Z12.11 - Encounter for screening for malignant neoplasm of colon hydrocortisone 2.5% (Proctosol HC) 1 appl [place] BID-QID PRN 30 grams 2RF hemorrhoids K64.9 - Unspecified hemorrhoids bisacodyl (Dulcolax (bisacodyl)) 10 mg (2 x 5 mg) PO BEDTIME 180 tabs 4RF Coding Level of Care Code New Pt Level 4 (31677) Diagnoses Elevated LFTs R79.89 Colitis K52.9 Constipation K59.00 Constipation type: unspecified constipation type Epigastric hernia K43.9 Hemorrhoids, unspecified hemorrhoid type K64.9 Hemorrhoid type: unspecified Time Spent (min) 50 Comment 35 minutes spent with patient and additional 15 minutes spent reviewing her records
--- OUTSIDE RECORDS SUMMARY | 2024-08-16 15:19 | XMS_ITS | Clinical Summary ---
Author Organization [facility] [address] [place] [address] [place] [phone] Phone Care Team Providers Care Voice Intercept Technician Name Role Phone Consuelo Garcia MD Primary Care Provider [phone] Allergies Active Allergy Reactions Criticality Noted Date Comments Latex 07/08/2009 Rash all over Medications cloNIDine (CATAPRES) 0.1 mg tablet 02/25/2023 Active [...] (QUETIAPINE ORAL) Take by mouth daily. Active bisacodyL (Dulcolax, bisacodyl,) 5 mg EC tablet Take 1 tablet (5 mg total) by mouth 1 (one) time each day if needed for constipation. Do not crush, chew, or split. 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 V24, [facility] V28) Tobacco use disorder 05/28/2009 Resolved Problems Problem Noted Date Diagnosed Date Resolved Date Breakthrough bleeding on Depo-Provera 07/28/2022 04/19/2024 Overview (12/26/2023): Last Assessment & Plan: Postcoital bleeding likely related to Depo Provera, as no findings concerning for cervical or vaginal lesion. Immunizations Name Administration Dates Next Due Hepatitis B (Nbiowxp-D-Lfubp , Recombivax HB-Adult) 19yo and older 08/26/1999,12/31/1998,10/14/1998 [...] COMMENT: removal of tube VAGINOSCOPY 12/2006 PROCEDURE: ND COLPOSCOPY CERVIX VAG LOOP ELTRD BX CERVIX OVARIAN CYST REMOVAL PROCEDURE: ND OVARIAN CYSTECTOMY UNI/BI; COMMENT: 2007 laproscopic SECTION 04/04/2009 PROCEDURE: ND DELIVERY ONLY TUBAL LIGATION PROCEDURE: HISTORICAL TUBAL [...] D deficiency Hypertension 05/28/2009 DX:Hypertension Bipolar depression ([facility] V24, [facility] V28) 05/28/2009 DX:Bipolar depression ([facility]) History of migraine headaches 02/08/2011 DX :History [...] stools DX:Straini ng with stools Hemorrhoids DX:Hemorrhoids Migraine 04/19/2024 Family History Medical History Relation Name Comments [...] Smoking Tobacco: Former Cigarettes Smokeless Tobacco: Never Tobacco Cessation:Counseling Given: Not Answered Alcohol Use Standard Drinks/Week Comments Not Currently [...] Vag-S pont Epidur al Livin g Delivery Location:[facility] 02/2007 Ectopic Delivery Location:right ecto pic 010 36w 0d 2325 g (82 oz) F CS-Un spec Spinal Livin g Delivery Location:[facility] 2011 IAB Last Filed Vital Signs Vital Sign Reading Time Taken Comments Blood Pressure 106/58 04/19/2024 10:18 AM EST Pulse 85 04/19/2024 10:18 AM EST Temperature 36.2 C (97.2 F) 04/19/2024 10:18 AM EST Respiratory Rate 16 04/19/2024 10:18 AM EST Oxygen Saturation 98% 04/19/2024 10:18 AM EST Inhaled Oxygen Concentration - - Weight 80.6 kg (177 lb 9.6 oz) 04/19/2024 10:18 AM EST Height 154.9 cm (5' 1 ) 04/19/2024 10:18 AM EST Body Mass Index 33.56 04/19/2024 10:18 AM EST Plan of Treatment Health Maintenance Due Date Last Done Comments Depression Screening 01/24/2022 Medicare Annual Wellness Visit 01/24/2022 Social Influencers of Health Screening 01/24/2022 COVID-19 Vaccine ( season) 2023 07/29/2021, 07/08/2021 Influenza Vaccine (Season Ended) 2024 Cholesterol Screening (Lipid Panel) 05/05/2028 05/06/2023 Cervical [...] age to complete this topic Meningococcal B Vaccine Aged Out No l onger eligible based on patient's age to complete [...] Procedure Name Priority Date/Time Associated Diagnosis Comments HPV WITH REFLEX GENOTYPE Routine 01/28/2024 10:40 AM EST Screening for cervical cancer HEPATITIS C SCREENING Routine 05/06/2023 LIPID PANEL Routine 05/06/2023 HIV SCREENING Routine 07/08/2009 from Last 3 Months or Most Recently Relevant to Health Maintenance Results * HPV with reflex genotype (01/28/2024 10:40 AM EST) HPV Negative Negative LAB MICROBIOLOGY METHOD 01/31/2024 2:12 PM EST [facility] [place]room Cervix uteri structure / Unknown 01/28/2024 10:40 AM EST 01/31/2024 8:01 AM EST Sowmya Miranda MD LAB MOLECULAR DIAGNOSTICS O RDERABLES Final Result [facility] [address] [place] [address], [place] [phone] * Hepatitis C Screening (05/06/2023) Hepatitis C Screening ABSTRACTED Historical Provider HEALTH MAINTENANCE Final Result * (ABNORMAL) Lipid panel (05/06/2023) LDL/HDL Ratio 4 0 - 4 Triglycerides 77 0 - 150 mg/dL Cholesterol 218(A) 0 - 200 mg/dL HDL 55 >=40 mg/dL LDL Cholesterol 148(A) 0 - 100 mg/dL Blood Venous blood specimen / Unknown Historical Provider LAB BLOOD ORDERABLES Quin l Result * HIV Screening (07/08/2009) Pathologist [facility] HIV Screening ABSTRACTED [facility] Provider HEALTH MAINTENANCE Final Result from Last 3 Months or Most Recently Relevant to Health Maintenance Insurance [place] - [place] [facility] MEDICARE ADVANTAGE on file Care Teams Voice Intercept Technician Relationship Specialty Start Date End Date Consuelo Garcia MD [address] [place] [phone] PCP - General Internal Medicine 11/21/20
--- OUTSIDE RECORDS SUMMARY | 2024-08-16 15:19 | XMS_ITS | Referral Summary ---
Author Organization [facility] Address [address] [place] [address] Care Team Providers Care Early Childhood Lead Teacher Name Role Phone FrankaoksuaStefanie Barrera Primary Care Provid er Allergies No [...] Plan of Treatment Not on file Insurance [facility] [employer] [id number] Care Teams Early Childhood Lead Teacher Relationship Specialty Start Date End Date Stefanie Hernandez PCP - General Internal Medicine 07/18/20
== END 2024-08-16 15:52 | disposition home or self-care (01) ==
LOC: HO.HGI 14:57
PROVIDERS: PCP Internal Medicine; Visit Provider Nurse Practitioner Family
DX: R79.89 Other specified abnormal findings of blood chemistry (principal); K52.9 Noninfective gastroenteritis and colitis, unspecified; K59.00 Constipation, unspecified; K43.9 Ventral hernia without obstruction or gangrene; K64.9 Unspecified hemorrhoids
CPT/HCPCS: 99204

== ENCOUNTER → 2024-08-16 14:56 | Outpatient (BNVA) | payer MEDICARE, MEDICAID, SELFPAY | PROVIDERS: PCP Internal Medicine; Visit Provider Nurse Practitioner Family | DX: R79.89 Other specified abnormal findings of blood chemistry (principal); K52.9 Noninfective gastroenteritis and colitis, unspecified; K59.00 Constipation, unspecified; K43.9 Ventral hernia without obstruction or gangrene; K64.9 Unspecified hemorrhoids | CPT/HCPCS: 99202 ==

== ENCOUNTER 2024-09-25 10:59 | Outpatient (AMB) | payer MEDICARE, MEDICAID, SELFPAY ==
--- NOTE | 2024-09-25 11:11 | A.OFFVIS_ITS ---
Vital Signs 09/25/24 11:13 Height 5 ft 1 in Weight 180 lb BMI 34.0 BP 138/66 Blood Pressure Location Rt brachial Position Sitting Pulse 71 Intake Visit Reasons: Hemorrhoids Intake Note: Patient referred by Lexus SIMMONS for assessment and treatment of hemo rrhoids. Patient c/o: bleeding noted after BM. ER consult: 04-08-2024 Rug Dyer Required: No Accompanied by: Self / Same As Patient Allergies latex (LATEX) Allergy (Mild, Verified 09/25/24 11:12) Hives HPI Comments Details: 39 year female referred for hemorrhoid issues. She says she has had occasional swelling and pain of her hemorrhoids. She also notices small amounts of blood once in a while with bowel movements She does have a problem with a chronic constipation. [facility] Medical History (Updated 09/25/24 @ 11:30 by Fabrizio Hightower MD) Hemorrhoids with complication Hemorrhoid Obesity (BMI 30.0-34.9) Diarrhea Hx of ectopic Depression Bipolar disorder Surgical History H/O colonoscopy Hx of hernia repair Hx of tubal ligation History of loop electrical excision procedure (LEEP) Hx of laparoscopy History of Social History Household Members: Family Housing: Apartment Are you a primary palliative care nurse to a significant other at home: Yes (children-one is still a minor-18 year old will care for child day of surg.) Do you presently have visiting nurse or other home services: No Alcohol intake: former Patient Tobacco Use Status: Never used Tobacco Tobacco use type: Cigarette Cigarettes Per Day: 5 Years Smoked: 12 Second Hand Smoke Exposure: No service: No Review of Systems Const Denies chills and Denies fever(s) Card Denies chest pain, Denies dyspnea and Denies dyspnea on exertion Resp Denies cough, Denies dyspnea and Denies dyspnea on exertion GI Reports hematochezia, Denies change in bowel habits and Reports constipation Denies hematuria Musc Denies back pain and Denies limited range of motion Neuro Denies focal weakness and Denies convulsions Psych Denies depression and Denies mood swings Physical Exam Vital Signs: Last Vital Signs Pulse 71 09/25/24 11:13 BP 138/66 09/25/24 11:13 BMI result Body Mass Index 34.0 Const General: comfortable and no acute distress Orientation/consciousness: patient oriented x3 Neck Neck: Yes no lymphadenopathy Resp Auscultation: clear to auscultation bilaterally Cardio Rhythm: regular rhythm GI Palpation (GI): Soft to palpation, nontender and no guarding Neuro General: patient oriented x3 Office Procedures Anoscopy She was in kneeling bony-knife position. The anoscope was gently inserted. A full examination of the anal canal was done. She did have mixed hemorrhoids, internal external on both the left and right side. One column appeared to be moderate-sized. There was no active bleeding. There was no fissure ulceration. There was no induration on digital exam. There was no tenderness. [id number] Assessment & Plan Assessment & Plan (1) Hemorrhoids with complication: Code(s): K64.8 - Other hemorrhoids Category: Medical Plan: She has internal and external hemorrhoids. She describes periodic swelling, pain and bleeding. I had a long discussion with her about the technique of exam under anesthesia and hemorrhoidectomy. I explained the risks including but not limited to bleeding, infections, postop pain, as well as the benefits and alternatives. I reviewed with her what to expect postoperatively She says that she is hesitant about proceeding with surgery. She says she will think about it. She says she will come back to the office to be re-evaluated down the line if she decides to proceed. We will send her a prescription for Metamucil for her constipation. Medications: New psyllium seed (sugar) (Metamucil (sugar) oral powder) 1 tbsp PO BID 1,254 grams 2RF Coding Diagnoses Hemorrhoids with complication K64.8 CPT Codes Details - CPT: 92571-[id number] ([id number])
[2024-09-25 11:13] VITALS: BP 138/66; PULSE 71; BMI 34.0
--- OUTSIDE RECORDS SUMMARY | 2024-09-25 11:42 | XMS_ITS | Referral Summary ---
Author Organization [facility] Address [address] [place] [address] Care Team Providers Care Capsule Filler Name Role Phone FrankakosuaStefanie Barrera Primary Care Provid er Allergies No [...] Plan of Treatment Not on file Insurance [facility] [employer] [id number] Care Teams Capsule Filler Relationship Specialty Start Date End Date Stefanie Hernandez PCP - General Internal Medicine 07/18/20
--- OUTSIDE RECORDS SUMMARY | 2024-09-25 11:42 | XMS_ITS | Clinical Summary ---
Author Organization [facility] [address] [place] [address] [place] [phone] Phone Care Team Providers Care Hemstitching Machine Operator Name Role Phone Consuelo Garcia MD Primary Care Provider [phone] Allergies Active Allergy Reactions Criticality Noted Date [...] 07/06/2013 Umbilical hernia 07/04/2013 Bipolar depression ([facility] V24, [facility] V28) Tobacco use disorder 05/28/2009 Resolved Problems Problem Noted Date Diagnosed Date Resolved Date Breakthrough bleeding on Depo-Provera 07/28/2022 04/19/2024 Overview (12/26/2023): Last Assessment & Plan: Postcoital bleeding likely related to Depo Provera, as no findings concerning for cervical or vaginal lesion. Immunizations Name Administration Dates Next Due Hepatitis B (Jxceooo-K-Txwma , Recombivax HB-Adult) 19yo and older 08/26/1999,12/31/1998,10/14/1998 [...] COMMENT: removal of tube VAGINOSCOPY 12/2006 PROCEDURE: IA COLPOSCOPY CERVIX VAG LOOP ELTRD BX CERVIX OVARIAN CYST REMOVAL PROCEDURE: IA OVARIAN CYSTECTOMY UNI/BI; COMMENT: 2007 laproscopic SECTION 04/04/2009 PROCEDURE: IA DELIVERY ONLY TUBAL LIGATION PROCEDURE: HISTORICAL TUBAL [...] deficiency Hypertension 05/28/2009 DX:Hypertension Bipolar depression ([facility] V24, [facility] V28) 05/28/2009 DX:Bipolar depression ([facility]) History of migraine headaches 02/08/2011 DX [...] Vag-S pont Epidur al Livin g Delivery Location:[facility] 02/2007 Ectopic Delivery Location:right ecto pic 010 36w 0d 2325 g (82 oz) F CS-Un spec Spinal Livin g Delivery Location:[facility] 2011 IAB Last Filed Vital [...] 04/19/2024 10:18 AM EST Plan of Treatment Upcoming Encounters Date Type Department Care Team (Late st Contact Info) Description 10/02/2024 8:00 AM EDT Office Visit Adult Medicine [facility] - [address] [phone] Cinthia Mckeon PA [address] [place] [address] 01/29/2025 10:00 AM EST Office Visit Obstetrics and Gynecology - [address] [phone] Eun Garcia CNM [address] [place] [address] Health Maintenance Due Date Last Done Comments Medicare Annual Wellness Visit 01/24/2022 Social Influencers of Health Screening 01/24/2022 COVID-19 Vaccine ( season) 2023 07/29/2021, 07/08/2021 Depression Screening 02/16/2024 Influenza Vaccine (#1) 2024 Cholesterol Screening (Lipid [...] 5 Years) and At-Risk Patients (6 to 49 Years) Aged Out No longer eligible based [...] with reflex genotype (01/28/2024 10:40 AM EST) [facility] HPV Negative Negative LAB MICROBIOLOGY METHOD 01/31/2024 2:12 PM EST [facility] Broom Cervix uteri structure / Unknown 01/28/2024 10:40 AM EST 01/31/2024 8:01 AM EST Sowmya Miranda MD LAB MOLECULAR DIAGNOSTICS O RDERABLES Final Result [facility] ([facility]) [facility] [address] [place] [address], [place] [phone] * Hepatitis C Screening (05/06/2023) [facility] Hepatitis C Screening ABSTRACTED [facility] Kunal [employer] Final Result * (ABNORMAL) Lipid panel (05/06/2023) [facility] LDL/HDL Ratio 4 0 - 4 Triglycerides 77 0 - 150 mg/dL Cholesterol 218(A) 0 - 200 mg/dL HDL 55 >=40 mg/dL LDL Cholesterol 148(A) 0 - 100 mg/dL Blood Venous blood specimen / Unknown [facility] Provider LAB BLOOD ORDERABLES Quin l Result * HIV Screening (07/08/2009) [facility] HIV Screening ABSTRACTED [facility] Kunal [employer] Final Result from Last 3 Months or Most Recently Relevant to Health Maintenance Insurance MEDICAID - [place] [employer] on file Care Teams Hemstitching Machine Operator Relationship Specialty Start Date End Date Consuelo Garcia MD [address] [place] [id number] PCP - General Internal Medicine 11/21/20
== END 2024-09-25 11:36 | disposition home or self-care (01) ==
LOC: HO.HGS 10:59
PROVIDERS: PCP Internal Medicine; Visit Provider Surgery
DX: K64.8 Other hemorrhoids (principal)
CPT/HCPCS: 46600

== ENCOUNTER → 2024-09-25 10:59 | Outpatient (BNVA) | payer MEDICARE, MEDICAID, SELFPAY | PROVIDERS: PCP Internal Medicine; Visit Provider Surgery | DX: K64.8 Other hemorrhoids (principal) | CPT/HCPCS: 46600; 99212 ==

== ENCOUNTER 2024-10-04 08:46 | Outpatient (AMB) | payer MEDICARE, MEDICAID, SELFPAY ==
--- NOTE | 2024-10-04 08:53 | MHC.OFFVIS ---
Vital Signs 10/04/24 09:00 Height 5 ft 1 in Weight 180 lb BMI 34.0 BP 138/86 Blood Pressure Location Rt brachial Position Sitting Pulse 80 Pulse Source Pulse Oximeter Pulse Oximetry (%) 98 Oxygen Delivery Method Room Air Intake Visit Reasons: 5wks Intake Note: Est pt for Constipation mgmt. 8/ appt w/ Dr. Hightower for hemorrhoid mgmt. CC; C.O. melena + hematochezia, BRB per rectum. Pt also reports that her constipation has not improved; however, pt also states that the pharmacy did not give her any medication except for the colonoscopy preparation. Napkin Machine Operator Required: No Accompanied by: Self / Same As Patient Allergies latex (LATEX) Allergy (Mild, Verified 10/04/24 08:53) Hives HPI HPI 5wks: Details: LAST VISIT Elevated LFTs Colitis Constipation Epigastric hernia Hemorrhoid Plan Patient will take Dulcolax daily. Increase fluid intake and activity to promote better bowel motility. Patient will be sent for colonoscopy. Appointment will be made with General surgery to evaluate for hemorrhoids. Message sent to Surgical schedules to book patient for procedure. What to expect before during and after procedure discussed with patient. Stressed importance of clear liquid diet and good bowel prep after the procedure. I will see her after the procedure, sooner on as needed basis. Patient will try Proctosol to help shrink her hemorrhoids. Patient is agreeable to current plan of care and verbalizes understanding of instructions. She was given the opportunity to ask questions and all questions answered. ? Thank you for allowing me to participate in her care Referrals General Surgery Referral K64.9 New polyethylene glycol 3350 (Miralax) As directed by gastroenterology department at [facility] 238 grams PO ONCE 238 grams 0RF Z12.11 hydrocortisone 2.5% (Proctosol HC) 1 appl KS BID-QID PRN 30 grams 2RF hemorrhoids K64.9 bisacodyl (Dulcolax (bisacodyl)) 10 mg (2 x 5 mg) PO BEDTIME 180 tabs 4RF TODAY'S VISIT Patient is here today for follow-up. Patient saw General surgery this month. Patient was found to have moderate hemorrhoids, however after discussion with the surgeon she decided to wait with surgery for now. Patient has colonoscopy scheduled for October 18. Patient reports that she is still having trouble moving her bowels. She has not received Proctosol or the Dulcolax tablets from pharmacy. Patient only received 2 MiraLax for prep before colonoscopy. Patient denies any issues with anesthesia in the past. No history of sleep apnea. Not on any anticoagulation medication. Patient reports occasional blood after wiping. She states that she is straining to have bowel movements. [facility] Medical History Hemorrhoids with complication Hemorrhoid Obesity (BMI 30.0-34.9) Diarrhea Hx of ectopic Depression Bipolar disorder Surgical History H/O colonoscopy Hx of hernia repair Hx of tubal ligation History of loop electrical excision procedure (LEEP) Hx of laparoscopy History of Social History Household Members: Family Housing: Apartment Are you a primary home care nurse to a significant other at home: Yes (children-one is still a minor-18 year old will care for child day of surg.) Do you presently have visiting nurse or other home services: No Alcohol intake: former Patient Tobacco Use Status: Never used Tobacco Tobacco use type: Cigarette Cigarettes Per Day: 5 Years Smoked: 12 Second Hand Smoke Exposure: No service: No Review of Systems Const Denies weight gain and Denies weight loss ENT Reports no additional complaints, Denies dysphagia and Denies odynophagia Card Reports no additional complaints Resp Reports no additional complaints GI Denies abdominal pain, Denies belching, Denies melena, Denies bloating, Reports hematochezia (Occasional), Denies change in bowel habits, Reports constipation, Denies dysphagia, Denies excessive flatus, Denies dyspepsia, Denies heartburn, Denies diarrhea, Denies loose stools, Denies nausea, Denies odynophagia and Denies vomiting Musc Reports no additional complaints Neuro Reports no additional complaints Psych Reports no additional complaints Endo Reports no additional complaints Physical Exam Vital Signs: Last Vital Signs Pulse 80 10/04/24 09:00 BP 138/86 10/04/24 09:00 Pulse Ox 98 10/04/24 09:00 Oxygen Delivery Method Room Air 10/04/24 09:00 BMI result Body Mass Index 34.0 Const General: healthy appearing, no acute distress and well developed Nutritional Appearance: well nourished and obese Orientation/consciousness: patient oriented x3 Resp Effort & Inspection: normal respiratory effort, able to speak in complete sentences, no tracheal deviation and symmetric chest movement Auscultation: clear to auscultation bilaterally Cardio Rate: regular rate GI Inspection: Yes normal to inspection, No distended and Yes obesity Palpation (GI): Soft to palpation, not firm, nontender and No hepatosplenomegaly present Auscultation: normal bowel sounds General: Yes no CVA tenderness Back/Spine/Pelvis Back: no CVA tenderness Skin General skin exam: elasticity normal, turgor normal and dry skin Neuro General: patient oriented x3 Psych Appearance: grossly normal Mental Status: mental status grossly normal Affect: Other affect and mood findings present (Tearful) Assessment & Plan Assessment & Plan (1) Constipation: Code(s): K59.00 - Constipation, unspecified Category: Medical Qualifiers: Constipation type: unspecified constipation type Qualified Code(s): K59.00 - Constipation, unspecified (2) Hemorrhoid: Code(s): K64.9 - Unspecified hemorrhoids Category: Medical Qualifiers: Hemorrhoid type: unspecified Qualified Code(s): K64.9 - Unspecified hemorrhoids (3) Diarrhea: Code(s): R19.7 - Diarrhea, unspecified Category: Medical Qualifiers: Diarrhea type: functional diarrhea Qualified Code(s): K59.1 - Functional diarrhea (4) Colitis: Code(s): K52.9 - Noninfective gastroenteritis and colitis, unspecified Category: Medical Plan Patient with check with her pharmacy. Script for Dulcolax recent for patient. Script for Colace send. Patient can take it together with Dulcolax in a evening if she still has hard stools. Proctosol use as needed. Patient was recommended to do's Sitz baths with Epsom salts. What to expect before during and after procedure discussed with patient. Stressed the importance of good bowel prep and clear liquid diet day before procedure. Patient will be seen after the procedure, sooner on as needed basis. She is agreeable to this plan and verbalizes understanding of instructions. She was given the opportunity to ask questions and all questions answered. Thank you for allowing me to participate in her care Medications: New bisacodyl (Dulcolax (bisacodyl)) 10 mg (2 x 5 mg) PO BEDTIME 180 tabs 4RF docusate sodium 100 mg PO BEDTIME 90 caps 3RF K59.00 - Constipation, unspecified Refilled hydrocortisone 2.5% (Proctosol HC) 1 appl KS BID-QID PRN 30 grams 2RF hemorrhoids K64.9 - Unspecified hemorrhoids Coding Level of Care Code Est Pt Level 3 (96121) Diagnoses Constipation K59.00 Constipation type: unspecified constipation type Hemorrhoids, unspecified hemorrhoid type K64.9 Hemorrhoid type: unspecified Functional diarrhea K59.1 Diarrhea type: functional diarrhea Colitis K52.9 Time Spent (min) 30 Comment 20 minutes spent with patient and additional 10 minutes spent reviewing her records
[2024-10-04 09:00] VITALS: BP 138/86; PULSE 80; O2SAT 98; BMI 34.0
--- OUTSIDE RECORDS SUMMARY | 2024-10-04 09:28 | XMS_ITS | Clinical Summary ---
Author Organization [facility] Address [address] [place] [address] Care Team Providers Care Gas Collection System Operator Name Role Phone EdgarStefanie Barrera Primary Care [...] Vaccine (1 - 2023-2 5 season) 2023 Alcohol/Substance Use Screening 02/16/2024 Influenza Vaccine (#1) 2024 RSV Vaccine (60+ years old and patients) (1 - 1-dose 75+ series) 2060 Pneumococcal Vaccine: Pediatric (0-5 Years) and At-Risk Patients (6-50 Years) Aged Out No longer eligible based on patient's age to complete this topic Insurance , [address] [place] [address] [facility] [id number] Care Teams Gas Collection System Operator Relationship Specialty Start Date End Date Stefanie Hernandez PCP - General Internal Medicine 07/18/20
== END 2024-10-04 09:29 | disposition home or self-care (01) ==
LOC: HO.HGI 08:47
PROVIDERS: PCP Internal Medicine; Visit Provider Nurse Practitioner Family
DX: K59.00 Constipation, unspecified (principal); K64.9 Unspecified hemorrhoids; K52.9 Noninfective gastroenteritis and colitis, unspecified
CPT/HCPCS: 99213

== ENCOUNTER → 2024-10-04 08:46 | Outpatient (BNVA) | payer MEDICARE, MEDICAID, SELFPAY | PROVIDERS: PCP Internal Medicine; Visit Provider Nurse Practitioner Family | DX: K59.00 Constipation, unspecified (principal); K64.9 Unspecified hemorrhoids; K59.1 Functional diarrhea | CPT/HCPCS: 99212 ==

== ENCOUNTER 2024-10-18 08:03 | Day surgery (SDC) | payer MEDICARE, MEDICAID, SELFPAY ==
--- OUTSIDE RECORDS SUMMARY | 2024-08-21 11:24 | XMS_ITS | Referral Summary ---
Author Organization [facility] Address [address] [place] [address] Care Team Providers Care Senior Field Engineer Name Role Phone MonicajosselynakosuaStefanie Barrera Primary Care [...] Plan of Treatment Not on file Insurance [facility] [employer] [id number] Care Teams Senior Field Engineer Relationship Specialty Start Date End Date Stefanie Hernandez PCP - General Internal Medicine 07/18/20
--- OUTSIDE RECORDS SUMMARY | 2024-08-21 11:24 | XMS_ITS | Clinical Summary ---
Author Organization [facility] [address] [place] [address] [place] [phone] Phone Care Team Providers Care Pathologist Assistant Name Role Phone Consuelo Garcia MD Primary Care Provider [phone] Allergies Active Allergy Reactions Criticality Noted Date [...] disorder) 07/06/2013 Umbilical hernia 07/04/2013 Bipolar depression ([facility] V24, [facility] V28) Tobacco use disorder 05/28/2009 Resolved Problems Problem Noted Date Diagnosed Date Resolved Date Breakthrough bleeding on Depo-Provera 07/28/2022 04/19/2024 Overview (12/26/2023): Last Assessment & Plan: Postcoital bleeding likely related to Depo Provera, as no findings concerning for cervical or vaginal lesion. Immunizations Name Administration Dates Next Due Hepatitis B (Lipmpuo-K-Gnlbu , Recombivax HB-Adult) 19yo and older 08/26/1999,12/31/1998,10/14/1998 [...] COMMENT: removal of tube VAGINOSCOPY 12/2006 PROCEDURE: ME COLPOSCOPY CERVIX VAG LOOP ELTRD BX CERVIX OVARIAN CYST REMOVAL PROCEDURE: ME OVARIAN CYSTECTOMY UNI/BI; COMMENT: 2007 laproscopic SECTION 04/04/2009 PROCEDURE: ME DELIVERY ONLY TUBAL LIGATION PROCEDURE: HISTORICAL TUBAL [...] D deficiency Hypertension 05/28/2009 DX:Hypertension Bipolar depression ([facility] V24, [facility] V28) 05/28/2009 DX:Bipolar depression ([facility]) History of migraine headaches 02/08/2011 DX :History [...] Labor Labor/2nd/3rd Weight Sex Type Anes PTL Akjal A1 A5 Name Clin 003 Term 40w 0d 3827 g (135 oz) M Vag-S pont Epidur al Livin g Delivery Location:[facility] 02/2007 Ectopic Delivery Location:right ecto pic 010 36w 0d 2325 g (82 oz) F CS-Un spec Spinal Livin g Delivery Location:[facility] 2011 IAB Last Filed Vital Signs [...] season) 2023 07/29/2021, 07/08/2021 Influenza Vaccine (#1) 2024 Cholesterol Screening (Lipid Panel) 05/05/2028 05/06/2023 [...] LAB MOLECULAR DIAGNOSTICS O RDERABLES Final Result [facility] [address] [place] [address], [place] [phone] * Hepatitis C Screening (05/06/2023) Hepatitis C [...] l Result * HIV Screening (07/08/2009) Pathologist [facility] HIV Screening ABSTRACTED [facility] Provider HEALTH MAINTENANCE Final Result from Last 3 Months or Most Recently Relevant to Health Maintenance Insurance [place]ICA[place] - [place] [facility] MEDICARE ADVANTAGE on file Care Teams Pathologist Assistant Relationship Specialty Start Date End Date Consuelo Garcia MD [address] [place] [phone] PCP - General Internal Medicine 11/21/20
[2024-08-28 10:26] VITALS: BMI 33.6
[2024-10-13 15:10] VITALS: BMI 34.0
--- NOTE | 2024-10-18 09:56 | MHC.SHP ---
Pre-Procedural Eval Section A - 24 Hr Update-Section A only Date of Service: 10/18/24 Section B - Complete if H&P > 30 days Relevant Family History (Specify if Yes): No Relevant Social History: Tobacco Use Present Medications: see Short Stay Collaborative assessment Medical History: Significant History (Hemorrhoids with complication Hemorrhoid Obesity (BMI 30.0-34.9) Diarrhea Hx of ectopic Depression Bipolar disorder) History of Previous Operations: Relevant previous surgery/procedure and date(s) ( H/O colonoscopy Hx of hernia repair Hx of tubal ligation History of loop electrical excision procedure (LEEP) Hx of laparoscopy History of ) Allergies: Allergies Allergy/AdvReac Type Severity Reaction Status Date / Time latex (LATEX) Allergy Mild Hives Verified 10/04/24 08:53 Review of Systems Sugical H&P ROS: Negative: Constitution, Cardiovascular, Respiratory, Neurological, Psychiatric, Hem-Onc, Allergic/Immunologic, Gastrointestinal, Genitourinary, Musculoskeletal, Integumentary, Endocrine and Eyes/Ears/Nose/Throat Exam Surgical H&P Exam: Normal: HEENT, Normal: Heart, Normal: Lungs, Normal: Extremities, Normal: Abdomen, Normal: Skin and Normal: Neurological Plan Diagnosis/Plan: Unchanged I have reviewed the history and physical and performed a pertinent physical examination on my patient. No changes have occurred unless specified. Time Spent With Patient Time: Total time managing care of this patient today ____ minutes.
[2024-10-18 10:18] VITALS: BP 129/62; PULSE 67; RESP 14; TEMP 37; O2SAT 99; BMI 32.9
[2024-10-18] MEDS: Lactated Ringers 1,000 ML 100 ML IVCONT (10:29)
--- NOTE | 2024-10-18 10:29 | HO.ANESPROP2 ---
Documented by User: Scarlet Anand NP 10/17/24 09:36 HPI - Anesthesia Eval Consult details Narrative: 39 yr old female for colonoscopy s/p tubal ligation PMFSH Active Problems Active Problems: All Active Problems (Updated 08/28/24 @ 10:27 by Stephanie Baldwin RN) Hemorrhoids with complication (Acute) Elevated LFTs (Acute) Syncope (Acute) Chest pain (Acute) Constipation (Acute) Colitis (Acute) Epigastric hernia (Acute) Hx LEEP (loop electrosurgical excision procedure), cervix, (Acute) Hemorrhoid (Acute) Obesity (BMI 30.0-34.9) (Chronic) Diarrhea (Acute) History of (Acute) Past Medical History Medical History Hemorrhoids with complication Hemorrhoid Obesity (BMI 30.0-34.9) Diarrhea Hx of ectopic Depression Bipolar disorder Family History Family history of problems with anesthesia: No Surgical History Surgical History H/O colonoscopy Hx of hernia repair Hx of tubal ligation History of loop electrical excision procedure (LEEP) Hx of laparoscopy History of History of Problems with Anesthesia: No Social History Social History Household Members: Family Housing: Apartment Are you a primary hourly caregiver to a significant other at home: No Do you presently have visiting nurse or other home services: No Alcohol intake: former Patient Tobacco Use Status: Current someday Tobacco user Tobacco use type: Cigarette Cigarettes Per Day: 1 Years Smoked: 12 Second Hand Smoke Exposure: No Use of substances other than those prescribed or required for medical reasons: Yes Substance Use Frequency: Occasionally Have you been hit, kicked, punched, or otherwise hurt by someone within the past year? If so, by whom?: No Are you DNR?: No Advance Directives: No Advance Directives Information Provided: Yes Patient : No FDLMP: 09/29/2024 : No Poor oral hygiene: No service: No Meds Allergies Allergy/AdvReac Type Severity Reaction Status Date / Time latex (LATEX) Allergy Mild Hives Verified 10/18/24 10:11 Home Medications ?Medication ?Instructions ?Recorded ?Confirmed ?Last Taken ?Type escitalopram oxalate 10 mg tablet 10 mg PO DAILY 04/08/24 08/28/24 04/11/24 History escitalopram oxalate 20 mg tablet 20 mg PO DAILY@1500 04/08/24 08/28/24 04/11/24 History gabapentin 400 mg capsule 800 mg PO TID 04/08/24 08/28/24 04/11/24 History lamotrigine 25 mg tablet 50 mg PO TID 04/08/24 08/28/24 04/11/24 History quetiapine 200 mg tablet,extended 200 mg PO BEDTIME 04/08/24 08/28/24 04/11/24 History release 24 hr quetiapine 50 mg tablet,extended 50 mg PO DAILY 04/08/24 08/28/24 04/11/24 History release 24 hr bupropion HCl 150 mg 24 hr tablet, 150 mg PO DAILY 08/16/24 08/28/24 Unknown History extended release prazosin 2 mg capsule mg PO DAILY 10/04/24 Unknown History Exam Height,Weight and Vital Signs: Height 5 ft 1 in Weight 81.647 kg Assessment and Plan Final Anesthetic Review Family History of Problems with Anesthesia: No History of Problems with Anesthesia: No Documented by User: Mary Petty DO 10/18/24 10:30 [facility] Past Medical History Medical History Hemorrhoids with complication Hemorrhoid Obesity (BMI 30.0-34.9) Diarrhea Hx of ectopic Depression Bipolar disorder Family History Family history of problems with anesthesia: No Surgical History Surgical History H/O colonoscopy Hx of hernia repair Hx of tubal ligation History of loop electrical excision procedure (LEEP) Hx of laparoscopy History of History of Problems with Anesthesia: No Social History Social History Household Members: Family Housing: Apartment Are you a primary hourly caregiver to a significant other at home: No Do you presently have visiting nurse or other home services: No Alcohol intake: former Patient Tobacco Use Status: Current someday Tobacco user Tobacco use type: Cigarette Cigarettes Per Day: 1 Years Smoked: 12 Second Hand Smoke Exposure: No Use of substances other than those prescribed or required for medical reasons: Yes Substance Use Frequency: Occasionally Have you been hit, kicked, punched, or otherwise hurt by someone within the past year? If so, by whom?: No Are you DNR?: No Advance Directives: No Advance Directives Information Provided: Yes Patient : No FDLMP: 09/29/2024 : No Poor oral hygiene: No service: No Meds Allergies Allergy/AdvReac Type Severity Reaction Status Date / Time latex (LATEX) Allergy Mild Hives Verified 10/18/24 10:11 Home Medications ?Medication ?Instructions ?Recorded ?Confirmed ?Last Taken ?Type escitalopram oxalate 10 mg tablet 10 mg PO DAILY 04/08/24 08/28/24 04/11/24 History escitalopram oxalate 20 mg tablet 20 mg PO DAILY@1500 04/08/24 08/28/24 04/11/24 History gabapentin 400 mg capsule 800 mg PO TID 04/08/24 08/28/24 04/11/24 History lamotrigine 25 mg tablet 50 mg PO TID 04/08/24 08/28/24 04/11/24 History quetiapine 200 mg tablet,extended 200 mg PO BEDTIME 04/08/24 08/28/24 04/11/24 History release 24 hr quetiapine 50 mg tablet,extended 50 mg PO DAILY 04/08/24 08/28/24 04/11/24 History release 24 hr bupropion HCl 150 mg 24 hr tablet, 150 mg PO DAILY 08/16/24 08/28/24 Unknown History extended release prazosin 2 mg capsule mg PO DAILY 10/04/24 Unknown History Exam Exam Date and Time: 10/18/24 1029 Height,Weight and Vital Signs: Height 5 ft 1 in Weight 81.647 kg Vital Signs Temperature 98.6 F 10/18/24 10:18 Pulse Rate 67 10/18/24 10:18 Respiratory Rate 14 10/18/24 10:18 Blood Pressure 129/62 10/18/24 10:18 Pulse Oximetry 99 10/18/24 10:18 Oxygen Delivery Method Room Air 10/18/24 10:18 Temperature 98.6 F 10/18/24 10:18 Pulse Rate 67 10/18/24 10:18 Respiratory Rate 14 10/18/24 10:18 Blood Pressure 129/62 10/18/24 10:18 Pulse Oximetry 99 10/18/24 10:18 Oxygen Delivery Method Room Air 10/18/24 10:18 Airway Mallampati Class: II TM Dist: >3cm Neck ROM: Full Loose/Missing/Broken Teeth: No (patient denies any loose or broken teeth) Heart: S1S2 Lungs: CTAB Assessment and Plan Assessment Anesthesia Assessment: Anesthesia Plan Discussed and Chart Reviewed Final Anesthetic Review Family History of Problems with Anesthesia: No History of Problems with Anesthesia: No NPO: Yes ASA Class: II Final Preanesthetic Review: No Changes in Pt Med Stat, Meds/Allgs Chart Reviewed, Consent Obtained/Reviewed and Anes Risks/Benef Reviewed Patient Risk: Low Procedure Risk: Low Anesthetic Plan Anesthetic Plan: MAC: and Agree w/ Assess. and Plan Disposition: Standard PACU
--- NOTE | 2024-10-18 10:53 | P.OP_ITS ---
Operative Note Operative Note Date of Service: 10/18/24 Narrative: Operative Information Procedure Description: Colonoscopy Indication: FH of CRC Anesthesia: MAC COLONOSCOPY Instrument: Olympus variable stiffness pediatric scope 190L Colonoscopy Monitoring: Vital signs and clinical assessment, continuous EKG monitoring, Pulse oximetry, Carbon Dioxide monitoring and blood pressure monitoring were done throughout the procedure. Colon withdrawal time was 8 minutes. Procedure: The patient was placed in the left lateral decubitis position and pre-procedure medications were administered. After a digital rectal examination of the ano-rectum, the video colonoscope was inserted into the rectum and advanced through the colon to the cecum/TI. The colonoscope was slowly withdrawn in a retrograde panoramic fashion and the colon mucosa was carefully examined including a retroflexed view of the rectum. Findings and interventions are described below. Procedure Difficulty: moderate Findings: Terminal Ileum-normal Cecum:normal Right sided retroflexion- normal Ascending Colon: 6-7 mm sessile polyp removed with cold forceps Transverse Colon -normal Descending Colon:normal Sigmoid Colon: normal Rectum: Retroflexion with small internal hemorrhoids seen, grade I with skin tags noted Anorectum - normal Intervention: cold forceps Colon preparation: Brandenburg Bowel Preparation Scale Right colon; 2 Transverse colon: 2 Left colon; 1-2 (0 = Unprepared colon segment with mucosa not seen due to solid stool that cannot be cleared. 1 = Portion of mucosa of the colon segment seen, but other areas of the colon segment not well seen due to staining, residual stool and/or opaque liquid. 2 = Minor amount of residual staining, small fragments of stool and/or opaque liquid, but mucosa of colon segment seen well. 3 = Entire mucosa of colon segment seen well with no residual staining, small fragments of stool or opaque liquid) Impression and Post Procedure Diagnosis: colon polyp internal hemorrhoids Plan: High fiber diet leaflet Avoid straining at stool, epsom salts and sitz bath, anusol supps or cream Repeat Colonoscopy in 1-2 years due to areas fo fair prep on left side or earlier if clinically indicated Above findings were reviewed with the patient and relevant handouts were provided if indicated.
[2024-10-18 11:01] VITALS: BP 115/52; PULSE 74; RESP 18; TEMP 36.2; O2SAT 96
[2024-10-18 11:16] VITALS: BP 121/82; PULSE 64; RESP 718; TEMP 36.2; O2SAT 99
== END 2024-10-18 11:47 | disposition home or self-care (01) ==
PROVIDERS: Visit Provider Internal Medicine Gastroenterology
PROC: 0DJD8ZZ Inspection of Lower Intestinal Tract, Via Natural or Artificial Opening Endoscopic (ICD-10-PCS; CPT 45378; principal; 2024-10-18 09:30)
DX: K59.00 Constipation, unspecified (principal); D12.2 Benign neoplasm of ascending colon; K64.0 First degree hemorrhoids; K64.4 Residual hemorrhoidal skin tags; K52.9 Noninfective gastroenteritis and colitis, unspecified; K92.1 Melena; Z80.0 Family history of malignant neoplasm of digestive organs; K43.9 Ventral hernia without obstruction or gangrene; R79.89 Other specified abnormal findings of blood chemistry; F17.210 Nicotine dependence, cigarettes, uncomplicated
CPT/HCPCS: 45380; 88305; J2003; J2704; J3010

== ENCOUNTER → 2024-10-18 08:03 | Outpatient (BNV) | payer MEDICARE, MEDICAID, SELFPAY | PROVIDERS: Visit Provider Internal Medicine Gastroenterology | DX: Z12.11 Encounter for screening for malignant neoplasm of colon (principal); Z80.0 Family history of malignant neoplasm of digestive organs; D12.2 Benign neoplasm of ascending colon; K64.0 First degree hemorrhoids; K64.4 Residual hemorrhoidal skin tags; Z91.199 Patient's noncompliance with other medical treatment and regimen due to unspecified reason | CPT/HCPCS: 45380 ==

== ENCOUNTER 2024-12-05 08:21 | Outpatient (AMB) | payer MEDICARE, MEDICAID, SELFPAY ==
--- NOTE | 2024-12-05 08:26 | A.OFFVIS_ITS ---
Vital Signs 12/05/24 08:29 Height 5 ft 1 in Weight 167 lb BMI 31.6 BP 130/74 Blood Pressure Location Rt brachial Position Sitting Pulse 72 Pulse Source Pulse Oximeter Pulse Oximetry (%) 97 Oxygen Delivery Method Room Air Intake Visit Reasons: s/p paula 10/18 Intake Note: Est pt for Constipation mgmt. CC; Pt denies any new GI concerns or sx since last visit. 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 Script for Dulcolax recent for patient. Script for Colace send. Patient can take it together with Dulcolax in a evening if she still has hard stools. Proctosol use as needed. Patient was recommended to do's Sitz baths with Epsom salts. What to expect before during and after procedure discussed with patient. Stressed the importance of good bowel prep and clear liquid diet day before procedure. Patient will be seen after the procedure, sooner on as needed basis. She is agreeable to this plan and verbalizes understanding of instructions. She was given the opportunity to ask questions and all questions answered. ? Thank you for allowing me to participate in her care New bisacodyl (Dulcolax (bisacodyl)) 10 mg (2 x 5 mg) PO BEDTIME 180 tabs 4RF docusate sodium 100 mg PO BEDTIME 90 caps 3RF K59.00 Refilled hydrocortisone 2.5% (Proctosol HC) 1 appl TN BID-QID PRN 30 grams 2RF hemorrhoids K64.9 COLONOSCOPY Findings: Terminal Ileum-normal Cecum:normal Right sided retroflexion- normal Ascending Colon: 6-7 mm sessile polyp removed with cold forceps Transverse Colon -normal Descending Colon:normal Sigmoid Colon: normal Rectum: Retroflexion with small internal hemorrhoids seen, grade I with skin tags noted Anorectum - normal Intervention: cold forceps Colon preparation: [place] Bowel Preparation Scale Right colon; 2 Transverse colon: 2 Left colon; 1-2 (0 = Unprepared colon segment with mucosa not seen due to solid stool that cannot be cleared. 1 = Portion of mucosa of the colon segment seen, but other areas of the colon segment not well seen due to staining, residual stool and/or opaque liquid. 2 = Minor amount of residual staining, small fragments of stool and/or opaque liquid, but mucosa of colon segment seen well. 3 = Entire mucosa of colon segment seen well with no residual staining, small fragments of stool or opaque liquid) Impression and Post Procedure Diagnosis: colon polyp internal hemorrhoids Plan: High fiber diet leaflet Avoid straining at stool, epsom salts and sitz bath, anusol supps or cream Repeat Colonoscopy in 1-2 years due to areas fo fair prep on left side or earlier if clinically indicated PATHOLOGY RESULTS Diagnosis Colon, ascending, polyp: Sessile serrated lesion/polyp without dysplasia, inflamed TODAY'S VISIT Patient is here today for follow-up. Patient denies any ill effects from the prep, anesthesia or procedure itself. Patient does admit to have occasional cramping every time she was to have a bowel movement. Incomplete emptying of her bowels and frequent stooling. Patient is taking Dulcolax. Patient admits not enough fiber except for beans in her diet. Patient reports occasional mucus in her stool. Denies melena, occasional hematochezia, however now that she is moving her bowels more less frequent abdominal pain and bloating. However patient admits that she will still be bloated when eating certain food. Occasional epigastric pain postprandially patient reports more or less burning like sensation PFSH Medical History Hemorrhoids with complication Hemorrhoid Obesity (BMI 30.0-34.9) Diarrhea Hx of ectopic Depression Bipolar disorder Surgical History H/O colonoscopy Hx of hernia repair Hx of tubal ligation History of loop electrical excision procedure (LEEP) Hx of laparoscopy History of Social History Household Members: Family Housing: Apartment Are you a primary personal care worker to a significant other at home: No Do you presently have visiting nurse or other home services: No Alcohol intake: former Patient Tobacco Use Status: Current someday Tobacco user Tobacco use type: Cigarette Cigarettes Per Day: 1 Years Smoked: 12 Second Hand Smoke Exposure: No service: No Review of Systems Const Denies weight gain and Denies weight loss ENT Reports no additional complaints, Denies dysphagia and Denies odynophagia Card Reports no additional complaints Resp Reports no additional complaints GI Reports abdominal pain (Postprandial epigastric pain), Denies belching, Denies melena, Reports bloating, Denies hematochezia, Denies change in bowel habits, Reports constipation (Occasional), Denies dysphagia, Denies excessive flatus, Denies dyspepsia, Denies heartburn, Denies diarrhea, Denies loose stools, Denies nausea, Denies odynophagia and Denies vomiting Reports no additional complaints Musc Reports no additional complaints Neuro Reports no additional complaints Psych Reports no additional complaints Endo Reports no additional complaints Physical Exam Vital Signs: Last Vital Signs Pulse 72 12/05/24 08:29 BP 130/74 12/05/24 08:29 Pulse Ox 97 12/05/24 08:29 Oxygen Delivery Method Room Air 12/05/24 08:29 BMI result Body Mass Index 31.6 Const General: healthy appearing and no acute distress Nutritional Appearance: obese Orientation/consciousness: patient oriented x3 Resp Effort & Inspection: normal respiratory effort, able to speak in complete sentences, no tracheal deviation and symmetric chest movement Auscultation: clear to auscultation bilaterally Cardio Rate: regular rate GI Inspection: Yes normal to inspection, No distended and Yes obesity Palpation (GI): Soft to palpation, not firm, nontender and No hepatosplenomegaly present Auscultation: normal bowel sounds General: Yes no CVA tenderness Back/Spine/Pelvis Back: no CVA tenderness Skin General skin exam: elasticity normal, turgor normal and dry skin Neuro General: patient oriented x3 Psych Appearance: grossly normal Mental Status: mental status grossly normal Affect: Other affect and mood findings present (Tearful) Assessment & Plan Assessment & Plan (1) Constipation: Code(s): K59.00 - Constipation, unspecified Category: Medical Qualifiers: Constipation type: unspecified constipation type Qualified Code(s): K59.00 - Constipation, unspecified (2) Hemorrhoid: Code(s): K64.9 - Unspecified hemorrhoids Category: Medical Qualifiers: Hemorrhoid type: unspecified Qualified Code(s): K64.9 - Unspecified hemorrhoids (3) Diarrhea: Code(s): R19.7 - Diarrhea, unspecified Category: Medical Qualifiers: Diarrhea type: functional diarrhea Qualified Code(s): K59.1 - Functional diarrhea (4) Colitis: Code(s): K52.9 - Noninfective gastroenteritis and colitis, unspecified Category: Medical (5) Elevated LFTs: Code(s): R79.89 - Other specified abnormal findings of blood chemistry Category: Medical (6) Status post colonoscopy: Code(s): Z98.890 - Other specified postprocedural states Plan Patient was encouraged to increase fiber in her diet. Will add additional fiber to take daily. May take simethicone as needed for bloating. Continue Dulcolax with stool softeners. Increase fluid intake and activity to promote bowel motility. Patient will start taking omeprazole. Avoid dietary triggers in late night snacking. Staying upright for minimum 3 hours after meals discussed with patient. Patient will follow-up in 4 months. She will call us if she will have any GI concerning symptoms. Patient is agreeable to this plan and verbalizes understanding of instructions. She was given the opportunity to ask questions and all questions answered Thank you for allowing me to participate in her care Medications: New methylcellulose (laxative) (Citrucel) take it with full glass of water 500 mg PO DAILY 90 tabs 2RF K59.00 - Constipation, unspecified omeprazole 20 mg PO DAILY 30 caps 3RF K21.9 - Gastro-esophageal reflux disease without esophagitis simethicone (Gas Relief (simethicone)) 125 mg PO BID-TID PRN 90 tabs 3RF abdominal distention Coding Level of Care Code Est Pt Level 4 (14866) Complex EM visit Add On G2211 Diagnoses Constipation K59.00 Constipation type: unspecified constipation type Hemorrhoids, unspecified hemorrhoid type K64.9 Hemorrhoid type: unspecified Functional diarrhea K59.1 Diarrhea type: functional diarrhea Colitis K52.9 Elevated LFTs R79.89 Status post colonoscopy Z98.890 Time Spent (min) 35 Comment 25 minutes spent with patient and additional 10 minutes spent reviewing her records
[2024-12-05 08:29] VITALS: BP 130/74; PULSE 72; O2SAT 97; BMI 31.6
--- OUTSIDE RECORDS SUMMARY | 2024-12-05 08:30 | XMS_ITS | Clinical Summary ---
Author Organization [facility] Address [address] [place] [address] Care Team Providers Care Pharmacy Sales Representative Name Role Phone EdgarStefanie Barrera Primary Care [...] - Td or Tdap) 08/11/2021 08/12/2011, 04/19/2001 Alcohol/Substance Use Screening 02/16/2024 COVID-19 Vaccine (1 - 2024-2 6 season) 2024 Influenza Vaccine (#1) 2024 RSV Vaccine (60+ years old and patients) (1 - 1-dose 75+ series) 2060 Pneumococcal Vaccine: Pediatric (0-5 Years) and At-Risk Patients (6-50 Years) Aged Out No longer eligible based on patient's age to complete this topic Insurance , [address] [place] [address] [facility] [place] [id number] Care Teams Pharmacy Sales Representative Relationship Specialty Start Date End Date Stefanie Hernandez PCP - General Internal Medicine 07/18/20
== END 2024-12-05 08:49 | disposition home or self-care (01) ==
LOC: HO.HGI 08:22
PROVIDERS: PCP Internal Medicine; Visit Provider Nurse Practitioner Family
DX: K59.00 Constipation, unspecified (principal); K64.9 Unspecified hemorrhoids; K59.1 Functional diarrhea; R79.89 Other specified abnormal findings of blood chemistry; Z98.890 Other specified postprocedural states
CPT/HCPCS: 99214; G2211

== ENCOUNTER → 2024-12-05 08:21 | Outpatient (BNVA) | payer MEDICARE, MEDICAID, SELFPAY | PROVIDERS: PCP Internal Medicine; Visit Provider Nurse Practitioner Family | DX: K59.1 Functional diarrhea (principal); K21.9 Gastro-esophageal reflux disease without esophagitis; K59.00 Constipation, unspecified; K64.9 Unspecified hemorrhoids; R79.89 Other specified abnormal findings of blood chemistry | CPT/HCPCS: 99212 ==